=== PATIENT | female | born 1930 | race Caucasian/White ===

== ENCOUNTER 2016-09-02 16:36 | Inpatient (IN) ==
[2016-09-02] MEDS ORDERED: *HR* Heparin 5,000 UNIT/ML VIAL IVP PRN (16:46)
[2016-09-02] MEDS ORDERED: *HR* Heparin 5,000 UNIT/ML VIAL IVP ONE (16:46)
--- NOTE | 2016-09-02 17:23 | Emergency Department Note ---
START Narrative - START START: I examined this patient and my medical decision-making was reviewed with the SUPERVISOR [employer]ING [employer]/PA/Advanced Practice Nurse/Resident Physician. I agree with the documented findings, disposition and treatment plan as described except to the extent set forth below. pt will need admitted. start heparin gtt for right PE. needs pancreatic workup as well
--- NOTE | 2016-09-02 17:38 | Emergency Department Note ---
Disposition Clinical Impression: Pulmonary embolus Qualifiers: Pulmonary embolism type: other Chronicity: acute Acute cor pulmonale presence: without acute cor pulmonale Qualified Code(s): I26.99 - Other pulmonary embolism without acute cor pulmonale Disposition: Admitted As Inpatient Condition: Good Referrals: NO,PCP [Primary Care Provider] - Forms: Work/School Release, ED Satisfaction Letter General Adult HPI - General Chief complaint: ED Shortness of Breath/Dyspnea Stated complaint: abnormal ct Time Seen by Provider: 09/02/16 16:40 Source: patient Limitations: no limitations Nursing Notes Reviewed: Yes Vital Signs Reviewed: Yes - History of Present Illness HPI Narrative: Patient here for evaluation of abnormal CT scan. Patient was seen by Dr. Alves for renal cyst that was going to be screened with CT abdomen pelvis to help rule out complex cyst or neoplasm. This was done on outpatient basis which showed a poor area embolus within the right pulmonary artery. Patient states that she has been experiencing shortness of breath for approximately 2 days. Patient does not normally wear home oxygen. Patient lives at [facility] secondary to her inability to get around. Patient is able to take care of all of her other activities of daily living. Patient began experiencing left lower leg pain approximately 2 weeks ago. Patient had x-ray showing no acute fracture. Patient has had associated swelling this left lower leg. With significant tenderness to palpation of the calf as well as the upper thigh. CT scan has other concerning findings including pancreatic cysts as well as an aortic aneurysm measuring approximate 4.4 centimeters. Patient had been on Coumadin in the past secondary to atrial fibrillation but she thinks she has been off this for approximately one year and just taking baby aspirin instead. Pain Scale: 0 - Related Data Home Medications Medication Instructions Recorded Confirmed ALPRAZolam [Xanax 0.5 MG Tablet] 0.5 mg PO QAM 05/13/15 05/24/15 Calcium Carbonate/Vitamin D3 1 each PO BID 05/13/15 05/24/15 [Calcium 500 + D Tablet] Cholecalciferol (Vitamin D3) 1,000 unit PO BID 05/13/15 05/24/15 [Vitamin D] Citalopram [CeleXA] 20 mg PO QPM 05/13/15 05/24/15 Diltiazem HCl [Cardizem LA] 120 mg PO QAM 05/13/15 05/24/15 Docusate [Colace] 100 mg PO QAM 05/13/15 05/13/15 Furosemide [Lasix] 20 mg PO QAM 05/13/15 05/13/15 Gabapentin [Neurontin] 300 mg PO BID 05/13/15 05/13/15 Glimepiride [Amaryl] 4 mg PO BID 05/13/15 05/24/15 Glucosamine HCl/Chondr Mcghee A Na 1 each PO QPM 05/13/15 05/24/15 [[facility] Glucosamine-Chondr Caplet] Losartan [Cozaar] 50 mg PO BID 05/13/15 05/13/15 Magnesium Oxide [Magnesium] 400 mg PO QAM 05/13/15 05/24/15 Omeprazole [PriLOSEC] 40 mg PO QAM 05/13/15 05/24/15 Pravastatin Sodium [Pravachol] 40 mg PO QPM 05/13/15 05/24/15 Ranitidine HCl [Zantac] 150 mg PO QAM 05/13/15 05/24/15 Sotalol [Betapace] 80 mg PO BID 05/13/15 05/24/15 metFORMIN [Glucophage] 500 mg PO BIDWM 05/13/15 05/24/15 Aspirin [Adult Low Dose Aspirin EC] 81 mg PO DAILY 05/24/15 05/24/15 Allergies Allergy/AdvReac Type Severity Reaction Status Date / Time naproxen [From Aleve] Allergy Mild Blister Verified 05/24/15 17:46 ibuprofen AdvReac Mild Abdominal Verified 05/24/15 17:45 Pain Review of Systems: CONSTITUTIONAL: No weight loss, fever, chills, weakness or fatigue. HEENT: Eyes: No visual changes. Ears, Nose, Throat: No hearing loss, difficulty talking or unable to swallow. SKIN: No rash or itching. CARDIOVASCULAR: No chest pain, chest pressure or chest discomfort. No palpitations or edema. RESPIRATORY: shortness of breath, No cough or sputum. GASTROINTESTINAL: No anorexia, nausea, vomiting or diarrhea. No abdominal pain or blood. GENITOURINARY: No burning on urination or hematuria. NEUROLOGICAL: No headache, dizziness, syncope, paralysis, ataxia, numbness or tingling in the extremities. No change in bowel or bladder control. 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, other - Social History Smoking Status: Never smoker Smokeless Tobacco Status: No Alcohol use: Reports: none Drug use: Reports: none Physical Exam General appearance: NAD, conversant Eyes: anicteric sclerae, moist conjunctivae; PERRL HENT: Atraumatic; oropharynx clear with moist mucous membranes and no mucosal ulcerations Neck: Normal inspection; Trachea midline; FROM, supple Lungs: CTA, with normal respiratory effort and no intercostal retractions CV: RRR, no MRGs Abdomen: Soft, non-tender; no rebound or gaurding Extremities: Mild edema to the left leg Skin: Normal temperature; no rash, ulcers or lesions Psych: Appropriate mood and affect Neuro: alert and oriented to person, place and time Musculoskeletal: Tenderness to palpation of the left leg from the calf to the upper thigh. - General Limitations: no limitations General appearance: alert, anxious Course - Consultations Consultation #1: Discussed with HospitalistTaye. Pt accepted. Vital Signs Temperature 98.5 F 09/02/16 16:38 Pulse Rate 66 09/02/16 16:38 Respiratory Rate 20 09/02/16 16:38 Blood Pressure 158/78 09/02/16 16:38 O2 Sat by Pulse Oximetry 98 09/02/16 16:38 Temperature 98.5 F 09/02/16 16:38 Pulse Rate 66 09/02/16 17:40 Respiratory Rate 20 09/02/16 17:40 Blood Pressure 159/77 09/02/16 17:40 O2 Sat by Pulse Oximetry 97 09/02/16 17:40 Oxygen Delivery Oxygen Delivery Nasal Cannula Medical Decision Making - Lab Data Result diagrams: 09/02/16 17:27 09/02/16 17:27 Lab Results 09/02/16 09/02/16 09/02/16 Range/Units 17:27 17:27 17:27 WBC 8.5 (4.3-11.1) K/mcL RBC 4.31 (3.82-4.97) M/mcL Hgb 12.7 (11.5-15.4) g/dL Hct 39.8 (35.3-44.9) % MCV 92.3 (83.0-100.0) fL MCH 29.5 (28.0-33.3) pg MCHC 31.9 (31.6-35.5) g/dL RDW 12.5 (11.5-14.5) % Plt Count 186 (140-400) K/mcL MPV 11.3 (9.4-12.4) fL Immature Gran % 0.4 (0-4) % Seg Neutrophils % 60.7 % Lymphocytes % 25.2 % Monocytes % 10.6 % Eosinophils % 2.5 % Basophils % 0.6 % Neutrophils # 5.1 (1.6-8.9) K/mcL Lymphocytes # 2.1 (0.6-4.6) K/mcL Monocytes # 0.9 (0.0-1.3) K/mcL Eosinophils # 0.2 (0.0-0.6) K/mcL Basophils # 0.1 (0.0-0.2) K/mcL PT 12.4 H (9.4-12.1) Seconds INR 1.1 APTT 27.5 (26.0-36.0) Seconds Sodium 138 (136-145) mEq/L Potassium 3.6 (3.5-4.5) mEq/L Chloride 102 (98-109) mEq/L Carbon Dioxide 27 (19-29) mEq/L BUN 16 (7-20) mg/dL Creatinine 1.24 H (0.57-1.11) mg/dL Est GFR ( Amer) 50 L (> 60) Est GFR (Non-Af Amer) 41 L (> 60) BUN/Creatinine Ratio 13 (6-26) Glucose 197 H (70-99) mg/dL Calculated Osmolality 293 (280-300) Calcium 8.9 (8.6-10.8) mg/dL Total Bilirubin 0.7 (0.2-1.2) mg/dL AST 13 (5-34) Units/L ALT 9 (0-55) Units/L Alkaline Phosphatase 86 (38-126) Units/L Troponin I (0-0.03) ng/mL B-Natriuretic Peptide (0-100) pg/mL Serum Total Protein 6.7 (6.0-8.3) g/dL Albumin 3.2 L (3.5-5.0) g/dL Globulin 3.5 (2.4-3.5) g/dL Albumin/Globulin Ratio 0.9 L (1.1-2.2) 09/02/16 09/02/16 Range/Units 17:27 17:27 WBC (4.3-11.1) K/mcL RBC (3.82-4.97) M/mcL Hgb (11.5-15.4) g/dL Hct (35.3-44.9) % MCV (83.0-100.0) fL MCH (28.0-33.3) pg MCHC (31.6-35.5) g/dL RDW (11.5-14.5) % Plt Count (140-400) K/mcL MPV (9.4-12.4) fL Immature Gran % (0-4) % Seg Neutrophils % % Lymphocytes % % Monocytes % % Eosinophils % % Basophils % % Neutrophils # (1.6-8.9) K/mcL Lymphocytes # (0.6-4.6) K/mcL Monocytes # (0.0-1.3) K/mcL Eosinophils # (0.0-0.6) K/mcL Basophils # (0.0-0.2) K/mcL PT (9.4-12.1) Seconds INR APTT (26.0-36.0) Seconds Sodium (136-145) mEq/L Potassium (3.5-4.5) mEq/L Chloride (98-109) mEq/L Carbon Dioxide (19-29) mEq/L BUN (7-20) mg/dL Creatinine (0.57-1.11) mg/dL Est GFR ( Amer) (> 60) Est GFR (Non-Af Amer) (> 60) BUN/Creatinine Ratio (6-26) Glucose (70-99) mg/dL Calculated Osmolality (280-300) Calcium (8.6-10.8) mg/dL Total Bilirubin (0.2-1.2) mg/dL AST (5-34) Units/L ALT (0-55) Units/L Alkaline Phosphatase (38-126) Units/L Troponin I 0.00 (0-0.03) ng/mL B-Natriuretic Peptide 154 H (0-100) pg/mL Serum Total Protein (6.0-8.3) g/dL Albumin (3.5-5.0) g/dL Globulin (2.4-3.5) g/dL Albumin/Globulin Ratio (1.1-2.2)
[2016-09-02 17:47] LABS: Basophils # 0.1 K/mcL (0.0-0.2); Basophils % 0.6 %; Eosinophils # 0.2 K/mcL (0.0-0.6); Eosinophils % 2.5 %; Hematocrit 39.8 % (35.3-44.9); Hemoglobin 12.7 g/dL (11.5-15.4); Immature Granulocytes % 0.4 % (0-4); Lymphocytes # 2.1 K/mcL (0.6-4.6); Lymphocytes % 25.2 %; Mean Corpuscular HGB Conc 31.9 g/dL (31.6-35.5); Mean Corpuscular Hemoglobin 29.5 pg (28.0-33.3); Mean Corpuscular Volume 92.3 fL (83.0-100.0); Mean Platelet Volume 11.3 fL (9.4-12.4); Monocytes # 0.9 K/mcL (0.0-1.3); Monocytes % 10.6 %; Neutrophils # 5.1 K/mcL (1.6-8.9); Platelet Count 186 K/mcL (140-400); Red Blood Count 4.31 M/mcL (3.82-4.97); Red Cell Distribution Width 12.5 % (11.5-14.5); Segmented Neutrophils % 60.7 %
[2016-09-02] MEDS: Heparin 25,000 UNIT/500 ML D5W 25,000 UNIT/500 ML MLS IVC SCH (17:47)
[2016-09-02 17:59] LABS: Albumin 3.2 g/dL (3.5-5.0); Albumin/Globulin Ratio 0.9 (1.1-2.2); Bilirubin,Total 0.7 mg/dL (0.2-1.2); Calcium 8.9 mg/dL (8.6-10.8); Globulin 3.5 g/dL (2.4-3.5); INR 1.1; Potassium 3.6 mEq/L (3.5-4.5); Prothrombin Time 12.4 Seconds (9.4-12.1); Total Protein 6.7 g/dL (6.0-8.3)
[2016-09-02 18:02] LABS: Activated Partial Thrombo Time 27.5 Seconds (26.0-36.0)
[2016-09-02] MEDS ORDERED: Naloxone 0.4 MG/ML INJ IVP PRN (20:17)
[2016-09-02] MEDS ORDERED: *HR* HYDROcodone/Acet 5/325 mg TABLET PO PRN (20:21)
[2016-09-02] MEDS ORDERED: Dextrose Gel 15 GM PO PRN ×2 (20:31)
[2016-09-02] MEDS ORDERED: *HR* Dextrose 50 % in Water (Syg) 50 ML SYRINGE IVP PRN (20:31)
[2016-09-02] MEDS ORDERED: D5% in Water 1,000 ML IVC PRN (20:31)
--- NOTE | 2016-09-02 22:07 | Event Note ---
Date of Encounter: 09/02/16 Time of Encounter: 22:04 Patient is having examined with nurse practitioner. She presents to the hospital after incidental finding of right subsegment of pulmonary embolism on CT scan performed for further workup of renal cystic lesions that was concerning for malignancy. Patient was started on heparin drip. Etiology for PE is unclear however patient has been more sedate entry and sitting down most of the time. Ambulates with a walker but most of the time in wheelchair. She has underlying malignancy that can also be a provoking factor. Duration of anticoagulation yet to be decided. Oncology consultation for evaluation cystic lesions in the pancreas kidney. She is not intubate do not resuscitate
[2016-09-02] MEDS: Diltiazem CD (24hr) 180 MG CAPSULE PO SCH (23:58)
[2016-09-02] MEDS: Insulin LISPRO 300 UNITS/3 ML VIAL SQ SCH (23:59)
[2016-09-02] MEDS: Gabapentin 300 MG CAPSULE PO SCH (23:59)
[2016-09-02] MEDS: Insulin DETEMIR 100 UNIT/ML X5UNITS SQ SCH (23:59)
--- NOTE | 2016-09-03 00:39 | Internal Med History&Physical ---
Date of Encounter: 09/03/16 Time of Encounter: 23:00 Assessment and Plan (1) Pulmonary embolus Current visit: Yes Status: Acute Patient's been experiencing increasing shortness of breath over the past 3 days. She does have a sedentary lifestyle and has possible malignancy. Incidental findings on CT of abdomen revealed pulmonary emboli. She was initiated on heparin will continue with heparin drip. She will require bridging to oral anticoagulation We will obtain cardiac echo Qualifiers: Pulmonary embolism type: other Chronicity: acute Acute cor pulmonale presence: without acute cor pulmonale Qualified Code(s): I26.99 - Other pulmonary embolism without acute cor pulmonale (2) Abnormal CT of the abdomen Current visit: Yes Status: Acute Abdominal CT did not reveal pulmonary emboli and right pulmonary artery extending to the right lower lobe. Simple 6.6 cm right renal upper pole cyst. Multiple cysts in the body of the pancreas measuring up to 1.7 cm size individually suspicious for malignancy We will consult oncology (3) Diabetes mellitus Current visit: No Status: Chronic Accu-Cheks before meals at bedtime with sliding scale insulin as well as basal Diabetic diet Qualifiers: Diabetes mellitus type: type 2 Diabetes mellitus complication status: with neurologic complications Diabetes mellitus complication detail: with unspecified neuropathy Diabetes mellitus jail insulin use: with intermediate designer use Qualified Code(s): E11.40 - Type 2 diabetes mellitus with diabetic neuropathy, unspecified; Z79.4 - [facility] (current) use of insulin (4) Essential hypertension Current visit: No Status: Chronic Presently controlled we will continue with home medications (5) Atrial fibrillation Current visit: No Status: Chronic Presently rate controlled We will continue with Cardizem sotalol, atrial fibrillation was on aspirin for anticoagulation presently on heparin drip due to PE Patient has a pacemaker Qualifiers: Atrial fibrillation type: paroxysmal Qualified Code(s): I48.0 - Paroxysmal atrial fibrillation (6) DVT prophylaxis Current visit: No Status: Acute Patient is on heparin drip Internal Medicine - H&P: HPI Chief complaint: abnormal CT Admitted From: Emergency Dept Plans for Post Hospital Care: Transfer [facility] Facility History of present illness: Ms. De León is a 86 year old female has a history of atrial fibrillation diabetes 2. Hyperlipidemia pacemaker. 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 She did see her primary care with concern for cancer and order outpatient abdominal CT. Apparently there was an incidental finding of a right subsegment pulmonary embolism on CT. The patient is sedentary and did note some shortness of breath when going to the bathroom over the past 3 days. She denies any chest pain or lower extremity swelling. She presented to the ER the above complaint. Lab work revealed stable hemoglobin 12 .[address] of head was negative for any bleed Patient was initiated on heparin drip and has been admitted for further work up evaluation. Presently patient denies any chest pain or shortness of breath. She does not appear to be in respiratory distress. Lung sounds are clear heart sounds S1 and S2 with no rubs or clicks gallops murmurs noted. No lower extremity edema. Abdomen soft nontender to palpation. I did discuss CODE STATUS patient she expressed that she would like to be DO NOT RESUSCITATE cc. She is hemodynamically stable this time. Reviewed this case with Dr. Bucio who agrees with plan. Past Med Surg Social Fam HX - Past Medical History Medical history: atrial fibrillation, DVT, diabetes, GI bleed, hyperlipidemia, hypertension, renal disease, other Psychiatric history: anxiety - Past Surgical History Surgical History: appendectomy, cholecystectomy, herniorrhaphy, hysterectomy, orthopedic, other, pacemaker/AICD - Social History Smoking Status: Never smoker Smokeless Tobacco Status: No Alcohol use: none Drug use: none - Family History Father Living Status: Mother Living Status: Internal Medicine - H&P: Meds ALPRAZolam [Xanax 0.5 MG Tablet] 0.5 mg PO DAILY PRN 05/13/15 [History] Calcium Carbonate/Vitamin D3 [Calcium 500 + D Tablet] 1 each PO DAILY 05/13/15 [ History] Cholecalciferol (Vitamin D3) [Vitamin D] 1,000 unit PO DAILY 05/13/15 [History] Citalopram [CeleXA] 20 mg PO QPM 05/13/15 [History] Docusate [Colace] 100 mg PO DAILY PRN 05/13/15 [History] Furosemide [Lasix] 40 mg PO QAM 05/13/15 [History] Gabapentin [Neurontin] 300 mg PO BID 05/13/15 [History] Glimepiride [Amaryl] 4 mg PO QAM 05/13/15 [History] Glucosamine HCl/Chondr Mcghee A Na [Cvs Glucosamine-Chondr Caplet] 1 each PO QPM [History] Losartan [Cozaar] 50 mg PO BID 05/13/15 [History] Magnesium Oxide [Magnesium] 400 mg PO QAM 05/13/15 [History] Omeprazole [PriLOSEC] 40 mg PO QAM 05/13/15 [History] Pravastatin Sodium [Pravachol] 40 mg PO QPM 05/13/15 [History] Sotalol [Betapace] 80 mg PO BID 05/13/15 [History] Aspirin 81 mg PO DAILY 09/02/16 [History] Bisacodyl [Dulcolax] 10 mg RC DAILY PRN 09/02/16 [History] Diltiazem HCl [Diltiazem 24Hr Cd] 180 mg PO BID 09/02/16 [History] Glimepiride [Amaryl] 2 mg PO QPM 09/02/16 [History] GuaiFENesin/Dextromethorphan [Tussin Dm Syrup] 5 ml PO QID PRN 09/02/16 [History ] Guaifenesin [Mucinex] 600 mg PO BID 09/02/16 [History] HYDROcodone/Acet 5/325 mg [[place] 5-325 mg] 1 tab PO QID PRN 09/02/16 [History] Insulin DETEMIR [Levemir] 15 unit SQ HS 09/02/16 [History] Insulin DETEMIR [Levemir] 16 unit SQ QAM 09/02/16 [History] Insulin LISPRO [HumaLOG] 4 unit SQ 1200,1700 MDD Lunch & Dinner 09/02/16 [ History] Loperamide [Imodium] 2 mg PO PER PKG DI PRN MDD 16 mg 09/02/16 [History] Nystatin POWDER [Nystop] 1 appl TP BID PRN 09/02/16 [History] Potassium Chloride [Klor-Con 10] 10 meq PO DAILY 09/02/16 [History] Allergies naproxen [From Aleve] Allergy (Mild, Verified 05/24/15 17:46) Blister NOT ABLE TO TAKE ANY NSAIDS DUE TO A HISTORY OF BLEEDING ULCERS ibuprofen Adverse Reaction (Mild, Verified 05/24/15 17:45) Abdominal Pain patient reports bleeding ulcers with use metformin Adverse Reaction (Verified 09/02/16 19:07) See Comments list from [facility] All Systems PM: A 10-system review of systems was performed and is negative for pertinent findings except as documented above in the HPI. - Constitutional Constitutional: no chills, no fever(s), no night sweats - EENT Eyes: no change in vision, no discharge, no pain, no photophobia Ears: no ear discharge, no ear pain, no tinnitus Nose, mouth and throat: no dysphagia, no nasal discharge, no neck pain, no sore throat - Cardiovascular Cardiovascular ROS IM: no chest pain, no diaphoresis, no dyspnea, no lightheadedness, no palpitations, no syncope - Respiratory Respiratory: dyspnea on exertion, no cough, no dyspnea, no wheezing, no excessive phlegm production - Gastrointestinal Gastrointestinal: abdominal pain, no diarrhea, no hematemesis, no hematochezia, no melena, no nausea, no vomiting - Genitourinary Genitourinary: no change in urinary stream, no dysuria, no flank pain, no hematuria - Musculoskeletal Musculoskeletal ROS IM: no numbness, no tingling - Integumentary Integumentary IM: no rash, no unusual bruising - Neurological Neurological ROS: no confusion, no convulsions, no focal weakness, no numbness, no tingling, no tremor(s) - Hematologic/Lymphatic Hematologic/Lymphatic: no easy bruising - Constitutional Vitals: Temp Pulse Resp BP Pulse Ox 98.3 F 71 17 160/103 94 09/02/16 22:38 09/02/16 22:38 09/02/16 22:38 09/02/16 22:38 09/02/16 22:38 General appearance: Present: A&O X 3, answers questions appropriately - Head Head exam: Present: atraumatic, normocephalic - Eye Eye exam: Present: PERRL, conjuntiva pink, sclera anicteric Pupils: Present: PERRL - Neck Neck exam general surgery: Present: supple, trachea midline. Absent: lymphadenopathy - Respiratory Respiratory exam: Present: CTAB. Absent: accessory muscle use, rales, rhonchi, wheezes - Cardiovascular Cardiovascular exam: Present: RRR, +S1, +S2. Absent: diastolic murmur, gallop, rubs, systolic murmur - GI/Abdominal GI/Abdominal exam: Present: normal bowel sounds, soft, no peritoneal signs. Absent: distended, tenderness - Extremities Exam Extremities exam: Present: warm, radial pulses palpable and symetrical. Absent : calf tenderness, cyanotic, pedal edema - Neurological Exam Neurological exam: Present: CN II-XII intact, oriented X3, no focal deficits. Absent: pronater drift, facial droop, speech deficit - Skin Skin exam: Present: dry, intact Internal Med - H&P Results - Labs CBC & Chem 7: 09/03/16 00:19 09/03/16 00:19 - Diagnostic Studies Other Images Additional comments: Chest X-Ray 09/02/16 17:05 IMPRESSION: Similar appearing chest without acute cardiopulmonary process radiographically, in this patient with pulmonary emboli seen in the right main pulmonary artery earlier today, as well as probable small left lower lobe pulmonary emboli on the CT study earlier today. D/ / Ubaldo Griffin MD / Ubaldo Griffin MD Interpreting Provider: Ubaldo Griffin MD
[2016-09-03 00:48] LABS: Basophils # 0.1 K/mcL (0.0-0.2); Basophils % 0.7 %; Eosinophils # 0.3 K/mcL (0.0-0.6); Hematocrit 36.5 % (35.3-44.9); Hemoglobin 11.7 g/dL (11.5-15.4); Immature Granulocytes % 0.2 % (0-4); Lymphocytes # 3.4 K/mcL (0.6-4.6); Lymphocytes % 40.1 %; Mean Corpuscular HGB Conc 32.1 g/dL (31.6-35.5); Mean Corpuscular Hemoglobin 29.9 pg (28.0-33.3); Mean Corpuscular Volume 93.4 fL (83.0-100.0); Mean Platelet Volume 11.1 fL (9.4-12.4); Monocytes # 0.8 K/mcL (0.0-1.3); Monocytes % 9.2 %; Neutrophils # 3.9 K/mcL (1.6-8.9); Platelet Count 169 K/mcL (140-400); Red Blood Count 3.91 M/mcL (3.82-4.97); Red Cell Distribution Width 12.7 % (11.5-14.5); Segmented Neutrophils % 46.8 %
[2016-09-03 01:01] LABS: Calcium 8.8 mg/dL (8.6-10.8); Potassium 3.7 mEq/L (3.5-4.5)
[2016-09-03 01:13] LABS: Activated Partial Thrombo Time 193.3 Seconds (26.0-36.0)
[2016-09-03 01:25] LABS: Heparin anti-factor XA UFH 1.26 IU/mL (0.30-0.70)
[2016-09-03] MEDS: Aspirin 81 MG TAB.CHEW PO SCH (07:54)
[2016-09-03] MEDS: Magnesium Oxide 400 MG TABLET PO SCH (07:54)
[2016-09-03] MEDS: Furosemide 20 MG TABLET PO SCH (07:54)
[2016-09-03] MEDS: Gabapentin 300 MG CAPSULE PO SCH ×2 (07:54→20:16)
[2016-09-03] MEDS: Diltiazem CD (24hr) 180 MG CAPSULE PO SCH ×2 (07:55→20:15)
[2016-09-03] MEDS: Insulin LISPRO 300 UNITS/3 ML VIAL SQ SCH ×4 (07:55→21:05)
[2016-09-03] MEDS: Insulin DETEMIR 100 UNIT/ML X5UNITS SQ SCH ×2 (09:32→21:05)
--- NOTE | 2016-09-03 13:10 | Oncology Inp Consult Note ---
Date of Encounter: 09/03/16 Time of Encounter: 12:30 Assessment and Plan (1) Weakness generalized Status: Chronic (2) Physical deconditioning Status: Chronic Assessment and plan: She currently resides in longterm. She will resume longterm care at time of discharge. (3) Pulmonary embolus Status: Acute Assessment and plan: Tolerating heparin quite well. Her symptoms have improved. Agree with obtaining baseline duplex Doppler of the lower extremities and CT chest as ordered. We will transition to Eliquis at time of discharge. Given age, 5 mg twice a day would be a reasonable dose. Qualifiers: Pulmonary embolism type: other Chronicity: acute Acute cor pulmonale presence: without acute cor pulmonale Qualified Code(s): I26.99 - Other pulmonary embolism without acute cor pulmonale (4) Pancreatic adenoma Status: Acute Assessment and plan: I had a nice meeting with the patient as well as her granddaughter who is at her bedside. 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 This is likely a premalignant condition although overt malignancy cannot be excluded. I did discuss that options for treatment if proven to be malignant would be surgery (which she would not be a candidate for) or chemotherapy which the patient does not want. Therefore, I think a prudent approach would be not to pursue further workup of this lesion at the current time. Instead, I would recommend repeat imaging in 3 months in my office. The patient and her daughter think this is a reasonable approach. I will make follow-up plans for her in my office in approximate 4 weeks' time to assess tolerance of Eliquis and finalize treatment plan for the above. Please call [phone] with questions. - Data of Consult Patient: new to practice Requesting Physician: Mini Lopez Primary Care Provider: PCP NO - Consult Narrative Reason for consult: New PE. Pancreatic lesion. History of present illness: Ms. De León is a 86 year old female who lives [facility] and developed shortness of breath approximately 3 days past. She states she was getting up with her walker to go to the restroom and felt winded. He went to see her primary care physician already ordered a CT scan of the abdomen and pelvis as there is been concerned she had an underlying renal malignancy. Incidentally, the CT scan showed a right sided pulmonary embolism. In addition to this, there was a 6.6 cm right kidney upper pole cyst. There was a millimeter nonobstructing left kidney stone. There were multiple cysts in the body of the pancreas. The largest measured 1.7 cm in the conglomerate measured 2.7 x 2.5 cm. 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 His been placed on a heparin drip with excellent tolerance. She has no bleeding symptoms of epistaxis hemoptysis hematemesis melena or hematochezia. In speaking with Ms. De León today, she is feeling much better. Her breathing is back to nearly baseline although she remains on oxygen. She denies any pain whatsoever. No fever chills or symptoms of active infection. Duplex Doppler has been ordered as has CT scan of chest. Past Med Surg Social Fam HX - Past Medical History Medical history: atrial fibrillation, DVT, diabetes, GI bleed, hyperlipidemia, hypertension, renal disease, other Psychiatric history: anxiety - Past Surgical History Surgical History: appendectomy, cholecystectomy, herniorrhaphy, hysterectomy, orthopedic, other, pacemaker/AICD - Social History Smoking Status: Never smoker Smokeless Tobacco Status: No Alcohol use: none Drug use: none - Family History Father Living Status: Mother Living Status: Medications and Allergies ALPRAZolam [Xanax 0.5 MG Tablet] 0.5 mg PO DAILY PRN 05/13/15 [History] Calcium Carbonate/Vitamin D3 [Calcium 500 + D Tablet] 1 each PO DAILY 05/13/15 [ History] Cholecalciferol (Vitamin D3) [Vitamin D] 1,000 unit PO DAILY 05/13/15 [History] Citalopram [CeleXA] 20 mg PO QPM 05/13/15 [History] Docusate [Colace] 100 mg PO DAILY PRN 05/13/15 [History] Furosemide [Lasix] 40 mg PO QAM 05/13/15 [History] Gabapentin [Neurontin] 300 mg PO BID 05/13/15 [History] Glimepiride [Amaryl] 4 mg PO QAM 05/13/15 [History] Glucosamine HCl/Chondr Mcghee A Na [Cvs Glucosamine-Chondr Caplet] 1 each PO QPM [History] Losartan [Cozaar] 50 mg PO BID 05/13/15 [History] Magnesium Oxide [Magnesium] 400 mg PO QAM 05/13/15 [History] Omeprazole [PriLOSEC] 40 mg PO QAM 05/13/15 [History] Pravastatin Sodium [Pravachol] 40 mg PO QPM 05/13/15 [History] Sotalol [Betapace] 80 mg PO BID 05/13/15 [History] Aspirin 81 mg PO DAILY 09/02/16 [History] Bisacodyl [Dulcolax] 10 mg RC DAILY PRN 09/02/16 [History] Diltiazem HCl [Diltiazem 24Hr Cd] 180 mg PO BID 09/02/16 [History] Glimepiride [Amaryl] 2 mg PO QPM 09/02/16 [History] GuaiFENesin/Dextromethorphan [Tussin Dm Syrup] 5 ml PO QID PRN 09/02/16 [History ] Guaifenesin [Mucinex] 600 mg PO BID 09/02/16 [History] HYDROcodone/Acet 5/325 mg [[place] 5-325 mg] 1 tab PO QID PRN 09/02/16 [History] Insulin DETEMIR [Levemir] 15 unit SQ HS 09/02/16 [History] Insulin DETEMIR [Levemir] 16 unit SQ QAM 09/02/16 [History] Insulin LISPRO [HumaLOG] 4 unit SQ 1200,1700 MDD Lunch & Dinner 09/02/16 [ History] Loperamide [Imodium] 2 mg PO PER PKG DI PRN MDD 16 mg 09/02/16 [History] Nystatin POWDER [Nystop] 1 appl TP BID PRN 09/02/16 [History] Potassium Chloride [Klor-Con 10] 10 meq PO DAILY 09/02/16 [History] Allergies naproxen [From Aleve] Allergy (Mild, Verified 05/24/15 17:46) Blister NOT ABLE TO TAKE ANY NSAIDS DUE TO A HISTORY OF BLEEDING ULCERS ibuprofen Adverse Reaction (Mild, Verified 05/24/15 17:45) Abdominal Pain patient reports bleeding ulcers with use metformin Adverse Reaction (Verified 09/02/16 19:07) See Comments list from ecf All systems: reviewed and no additional remarkable complaints except as stated Constitutional: Present: fatigue, lethargy Neurological: Present: lack of coordination, weakness Additional comments: Ambulates minimally and sedentary. Oncology - Exam - Constitutional Vitals: Temp Pulse Resp BP Pulse Ox 98.0 F 59 16 146/78 96 09/03/16 11:51 09/03/16 11:51 09/03/16 11:51 09/03/16 11:51 09/03/16 11:51 General appearance: cooperative, obese Exam: Diminished muscle tone throughout. - Head Head exam: Present: atraumatic, normal inspection, normocephalic - Eye Eye exam: Present: conjuntiva pink, sclera anicteric - ENT ENT exam: Present: mucous membranes moist, normal exam - Neck Neck exam: Present: full ROM, normal inspection - Respiratory Respiratory exam: Present: CTAB - Cardiovascular Cardiovascular exam: Present: irregular rhythm - GI/Abdominal GI/Abdominal exam: Present: normal bowel sounds, soft - Extremities Exam Extremities exam: Present: pedal edema - Skin Skin exam: Present: intact, normal color Oncology - Results - Labs Labs: Short CBC 09/03/16 Range/Units 00:19 WBC 8.4 (4.3-11.1) K/mcL Hgb 11.7 (11.5-15.4) g/dL Hct 36.5 (35.3-44.9) % Plt Count 169 (140-400) K/mcL Neutrophils # 3.9 (1.6-8.9) K/mcL BMP 09/03/16 00:19 Sodium 138 Potassium 3.7 Chloride 103 Carbon Dioxide 27 BUN 18 Creatinine 1.07 Glucose 220 H Calcium 8.8 Cardiac Enzymes 09/03/16 09/03/16 Range/Units 00:19 05:35 Troponin I 0.01 0.01 (0-0.03) ng/mL - Impressions Imaging reviewed. Please see HPI Consult Discharge Plan - Plan Referrals: NO,PCP [Primary Care Provider] -
--- NOTE | 2016-09-03 13:52 | Internal Med Progress Note ---
<Abdiel Spangler - Last Filed: 09/03/16 13:47> Date of Encounter: 09/03/16 Time of Encounter: 09:20 - Assessment and plan (1) Pulmonary embolus Current Visit: Yes Status: Acute Assessment and plan: Patient found to have pulmonary embolism, incidentally, on CT of the abdomen with/without contrast and evaluation of renal cyst. Patient found to have right -sided pulmonary embolus. 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 Lower extremity venous Doppler showed left-sided DVT at the CFV/SFV/popliteal vein level. Patient was previously taking Coumadin for atrial fibrillation, but stopped 1 year ago due to weakness and frequent falls. Patient on heparin drip currently Hematology/oncology consulted for assistance with continued management/care Recommend transition to Eliquis at the time of discharge (5 mg twice a day) Continue supplemental oxygen as needed, wean as tolerated 2 patient underlying chronic kidney disease, will continue to monitor renal function with daily labs following CTs with contrast Qualifiers: Pulmonary embolism type: other Chronicity: acute Acute cor pulmonale presence: without acute cor pulmonale Qualified Code(s): I26.99 - Other pulmonary embolism without acute cor pulmonale (2) Pancreatic adenoma Current Visit: Yes Status: Acute Assessment and plan: Multiple cysts found in the body of the pancreas measuring up to 1.7 cm in size with total iron bit of 2.7 x 2.5. Could represent cystic neoplasm or cystic adenoma. Oncology consulted for assistance in further management/care (3) Do not resuscitate discussion Current Visit: Yes Status: Acute Assessment and plan: Lengthy discussion with patient regarding her CODE STATUS today. After discussion with patient she seems to be more interested in a DNR CCA/DNI. After discussion with oncology she is not a candidate for surgery or interested in chemotherapy if it is found to be potential cancer. Patient has elected for more conservative approach with follow-up CT for reevaluation. CODE STATUS was changed to DNR CCA/DNI per patient wishes (4) Essential hypertension Current Visit: No Status: Chronic Assessment and plan: Patient takes diltiazem 180 mg twice a day and losartan 50 mg twice a day at home Continue home medications (5) Diabetes mellitus, type 2 Current Visit: No Status: Chronic Assessment and plan: Patient on 15 units every morning and 16 units daily at bedtime Levemir and glimepiride at home We will hold patient home in the parotid 15 units subcutaneous at bedtime Levemir 16 units subcutaneous every morning Levemir Low dose sliding scale insulin before meals at bedtime Qualifiers: Diabetes mellitus complication status: without complication Diabetes mellitus terminal gauger insulin use: with terminal gauger use Qualified Code(s): E11.9 - Type 2 diabetes mellitus without complications; Z79.4 - long-term (current) use of insulin (6) Weakness generalized Current Visit: No Status: Chronic Assessment and plan: Patient reports generalized weakness lasting for some time, resulting in a history of falls. Patient resides at [facility] for more close care as family are not able to care for her at home. - Subjective Interval history: Patient reports doing well at this time stating that she "feels fine." She states that she feels like she is breathing much better than she has to last couple days, do not miss this might be accounted on supplemental oxygen she is using. She denies any chest pain, pain with deep breathing, or pain with cough. She denies fever/chills. She states she has been having some pain in her left calf, but this has been occurring for the last year. - Constitutional Vitals: Temp Pulse Resp BP Pulse Ox 98.0 F 59 16 146/78 96 09/03/16 11:51 09/03/16 11:51 09/03/16 11:51 09/03/16 11:51 09/03/16 11:51 General appearance: Present: A&O X 3, answers questions appropriately Exam: General: Cooperative, pleasant, no acute distress, alert and oriented 3, answers questions appropriately HEENT: Normocephalic, atraumatic, neck supple, trachea midline, Conjunctiva pink , sclera anicteric, oral mucosa moist Respiratory: No accessory muscle usage, clear to auscultation bilaterally, no wheezes/rhonchi/rales appreciated Cardiovascular: Regular rate and rhythm, S1 and S2 present, no murmurs/rubs/ gallops/clicks appreciated GI/abdominal: Nondistended, nontender, soft, normal bowel sounds, no peritoneal signs Extremities: Mild left-sided calf tenderness, noncyanotic, no lower extremity edema appreciated, warm, lower extremity pulses palpable and symmetrical, negative Homans sign Neurological: Alert and oriented 3, no facial droop, no focal deficits Skin: Dry, intact, normal color Internal Medicine: Result - Labs CBC & Chem 7: 09/03/16 00:19 09/03/16 00:19 Labs: Short CBC 09/03/16 Range/Units 00:19 WBC 8.4 (4.3-11.1) K/mcL Hgb 11.7 (11.5-15.4) g/dL Hct 36.5 (35.3-44.9) % Plt Count 169 (140-400) K/mcL Neutrophils # 3.9 (1.6-8.9) K/mcL BMP 09/03/16 00:19 Sodium 138 Potassium 3.7 Chloride 103 Carbon Dioxide 27 BUN 18 Creatinine 1.07 Glucose 220 H Calcium 8.8 Cardiac Enzymes 09/03/16 09/03/16 Range/Units 00:19 05:35 Troponin I 0.01 0.01 (0-0.03) ng/mL - ABG Interpretation ABG results: PT/INR, D-dimer PT 12.4 Seconds (9.4-12.1) H 09/02/16 17:27 - Impressions Impressions Chest CTA 09/03/16 13:00 IMPRESSION: 1. Right-sided pulmonary emboli with no evidence of infarct 2. 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 D/ / Shoaib Sauceda MD / Shoaib Sauceda MD Interpreting Provider: Shoaib Sauceda MD Consult Discharge Plan - Plan Referrals: NO,PCP [Primary Care Provider] - <Mini Lopez E - Last Filed: 09/03/16 16:07> Date of Encounter: 09/03/16 - Constitutional Vitals: Temp Pulse Resp BP Pulse Ox 98.0 F 59 16 146/78 96 09/03/16 11:51 09/03/16 11:51 09/03/16 11:51 09/03/16 11:51 09/03/16 11:51 Internal Medicine: Result - Labs CBC & Chem 7: 09/03/16 00:19 09/03/16 00:19 Labs: Short CBC 09/03/16 Range/Units 00:19 WBC 8.4 (4.3-11.1) K/mcL Hgb 11.7 (11.5-15.4) g/dL Hct 36.5 (35.3-44.9) % Plt Count 169 (140-400) K/mcL Neutrophils # 3.9 (1.6-8.9) K/mcL BMP 09/03/16 00:19 Sodium 138 Potassium 3.7 Chloride 103 Carbon Dioxide 27 BUN 18 Creatinine 1.07 Glucose 220 H Calcium 8.8 Cardiac Enzymes 09/03/16 09/03/16 Range/Units 00:19 05:35 Troponin I 0.01 0.01 (0-0.03) ng/mL - ABG Interpretation ABG results: PT/INR, D-dimer PT 12.4 Seconds (9.4-12.1) H 09/02/16 17:27 - Impressions Impressions Chest CTA 09/03/16 13:00 IMPRESSION: 1. Right-sided pulmonary emboli with no evidence of infarct 2. 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 My medical decision-making was reviewed with Dr Abdiel Spangler - Resident Physician. I agree with the documented findings, disposition and treatment plan as described above with the following additions.
[2016-09-03] MEDS: Heparin 25,000 UNIT/500 ML D5W 25,000 UNIT/500 ML MLS IVC SCH (15:26)
[2016-09-03] MEDS: *HR* Heparin 5,000 UNIT/ML VIAL IVP PRN (20:14)
[2016-09-04 04:15] LABS: BUN/Creatinine Ratio 17 (6-26); Blood Urea Nitrogen 15 mg/dL (7-20); Calcium 8.8 mg/dL (8.6-10.8); Carbon Dioxide 26 mEq/L (19-29); Chloride 103 mEq/L (98-109); Glucose 143 mg/dL (70-99); Magnesium 1.5 mg/dL (1.6-2.6); Osmolality,Calculated 289 (280-300); Potassium 3.6 mEq/L (3.5-4.5); Sodium 138 mEq/L (136-145); eGFR For African Americans > 60 (> 60); eGFR For Non-African Americans > 60 (> 60)
[2016-09-04] MEDS: Insulin DETEMIR 100 UNIT/ML X5UNITS SQ SCH ×2 (09:08→20:55)
[2016-09-04] MEDS: Magnesium Oxide 400 MG TABLET PO SCH (09:10)
[2016-09-04] MEDS: Furosemide 20 MG TABLET PO SCH (09:10)
[2016-09-04] MEDS: Diltiazem CD (24hr) 180 MG CAPSULE PO SCH ×2 (09:10→20:53)
[2016-09-04] MEDS: Gabapentin 300 MG CAPSULE PO SCH ×2 (09:10→20:54)
[2016-09-04] MEDS: Aspirin 81 MG TAB.CHEW PO SCH (09:10)
[2016-09-04] MEDS: Insulin LISPRO 300 UNITS/3 ML VIAL SQ SCH ×4 (09:12→20:54)
--- NOTE | 2016-09-04 09:33 | Oncology Inp Progress Note ---
Date of Encounter: 09/04/16 Time of Encounter: 09:45 (1) Pulmonary embolus Current Visit: Yes Status: Acute Assessment and plan: Tolerating heparin quite well. Transition to eliquis 5 mg bid at discharge. Educated as to signs and symptoms of bleeding. Will need to be careful as fall risk as well. Qualifiers: Pulmonary embolism type: other Chronicity: acute Acute cor pulmonale presence: without acute cor pulmonale Qualified Code(s): I26.99 - Other pulmonary embolism without acute cor pulmonale (2) Pancreatic adenoma Current Visit: Yes Status: Acute Assessment and plan: No aggressive workup or treatment desired by patient or family. Will consider serial imaging if patient desires in 3 months otherwise expectant observation. I will make follow-up plans for her in my office in approximate 4 weeks' time to assess tolerance of Eliquis and finalize treatment plan for the above. I will otherwise sign off. Please call [phone] with questions. Oncology: Subj Interval history: Feeling okay this AM. Breathing stable and comfortable. Asking about going home. No new pain. Left leg swelling may be a bit better from yesterday but difficult to tell. Eating ok. Bowel habits normal. Tolerating heparin gtt. D /W nurse who is weaning oxygen. - Constitutional Vitals: Vital Signs Temp Pulse Resp BP Pulse Ox 09/04/16 06:45 97.8 F 68 16 144/83 95 09/04/16 04:08 97.5 F L 63 17 149/83 95 09/03/16 23:30 97.7 F 67 18 148/83 95 09/03/16 20:30 97.8 F 97 18 154/80 96 09/03/16 14:37 98.3 F 64 16 147/83 95 09/03/16 11:51 98.0 F 59 16 146/78 96 Intake and Output 09/04/16 09/04/16 09/04/16 00:59 08:59 16:59 Intake Total 1243 / 1243 263 / 263 Output Total 700 / 700 Balance 543 / 543 263 / 263 Intake: IV Fluids 3 163 / 163 Heparin 25,000 UNIT/500 3 163 / 163 ML D5W 25,000 unit In 500 ml @ 14 UNIT/KG/HR 26. 417 mls/hr IVC .[id number] HIWOT Rx#:[id number] Oral 1240 / 1240 100 / 100 Output: Urine 700 / 700 Other: Meal Dinner Percent of Meal Consumed 100% Stool Size Small Stool Consistency soft Stool Characteristics Normal for Patient Stool Color Brown # Voids 1 # Bowel Movements 1 Weight 98.1 kg Blood Glucose* 211 161 Patient Weight 09/05/16 00:59 Weight 98.1 kg General appearance: cooperative, no acute distress, obese - Head Head exam: Present: atraumatic, normal inspection, normocephalic - Eye Eye exam: Present: conjuntiva pink, sclera anicteric - ENT ENT exam: Present: mucous membranes moist, normal exam - Respiratory Respiratory exam: Present: CTAB - Cardiovascular Cardiovascular exam: Present: RRR, systolic murmur - GI/Abdominal GI/Abdominal exam: Present: normal bowel sounds, soft - Extremities Exam Extremities exam: Present: pedal edema (2+ on left with tenderness) - Skin Skin exam: Present: normal color Oncology: Obj Data - Labs CBC & Chem 7: 09/03/16 00:19 09/04/16 03:43 Labs: Laboratory Results - last 24 hr 09/03/16 09/03/16 09/03/16 07:31 11:54 12:11 APTT 59.1 H Sodium Potassium Chloride Carbon Dioxide BUN Creatinine Est GFR ( Amer) Est GFR (Non-Af Amer) BUN/Creatinine Ratio Glucose POC Glucose 184 H 250 H Calculated Osmolality Calcium Magnesium 09/03/16 09/03/16 09/03/16 17:15 18:27 20:26 APTT 56.0 H Sodium Potassium Chloride Carbon Dioxide BUN Creatinine Est GFR ( Amer) Est GFR (Non-Af Amer) BUN/Creatinine Ratio Glucose POC Glucose 94 H 211 H Calculated Osmolality Calcium Magnesium 09/04/16 09/04/16 03:43 03:43 APTT 93.5 H D Sodium 138 Potassium 3.6 Chloride 103 Carbon Dioxide 26 BUN 15 Creatinine 0.89 Est GFR ( Amer) > 60 Est GFR (Non-Af Amer) > 60 BUN/Creatinine Ratio 17 Glucose 143 H POC Glucose Calculated Osmolality 289 Calcium 8.8 Magnesium 1.5 L - Impressions Impressions Chest CTA 09/03/16 13:00 IMPRESSION: 1. Right-sided pulmonary emboli with no evidence of infarct 2. 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
[2016-09-04] MEDS ORDERED: Magnesium Sulfate 1 GM in D5% in Water 100 ML IVPB ONE (10:36)
[2016-09-04] MEDS: *HR* Heparin 5,000 UNIT/ML VIAL IVP PRN (11:14)
--- NOTE | 2016-09-04 11:50 | Venous Imaging Report ---
LE Venous Duplex Patient Name:Edel De León Order Number:[id number] Procedure Date:09/03/2016 Date:1930ge:86 yrs Gender:Female Location:[facility] Room #: 3NE19 Hand Trucker:Ladi Yin Referring MD:Raquel Swift TECHNOLOGY EDUCATION INSTRUCTOR new patient escort:None Reading MD:Shoaib Ann MD , FACS Primary Indications:Left LE calf pain Secondary Indications: Risk Factors Yes/No Hx of DVT Impressions: Lower extremity abnormal deep exam: left common femoral vein, superficial femoral vein, and popliteal vein demonstrates acute thrombosis. Right lower extremity: normal contralateral exam. Recommendations: Test completed on 09/03/2016 at 12:45:00 pm. Critical findings reported to CORBY Spangler in person at 12:50:00 pm on 09/03/2016 by Ladi Yin. Findings Venous Duplex Results: Left: There is a partially occlusive thrombus seen in the left common femoral. There is an occlusive thrombus seen in the left superficial femoral. There is an occlusive thrombus seen in the left popliteal. Prior Study: No prior study available for comparison. Lower Extremity Venous Duplex Side Vein Compress Spontaneous Flow Augment Diameter (cm) Depth (cm) Left Distal Iliac Normal Yes Phasic Yes Left Common Femoral Partial Yes Phasic no Left Superficial Femoral None no Absent no Left Popliteal None no Absent no Left Posterior Tibial Normal Yes Phasic Yes Left Peroneal Normal Yes Phasic Yes Left Saphenofemoral Junction Normal Yes Phasic Yes Left Great Saphenous Normal Yes Phasic Yes Left Lesser Saphenous Normal Yes Phasic Yes Right Common Femoral Normal Yes Phasic Yes Updated by Shoaib Ann MD, FACS on 09/04/2016 11:46:05 AM Shoaib Ann MD electronically signed on 09/04/2016 11:46:32 AM with status of Final
--- NOTE | 2016-09-04 12:32 | Electrocardiograph Report ---
[place] [id number] Test Date: 2016-09-02 Pat Name: Edel De León Department: 102 Room: 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
--- NOTE | 2016-09-04 12:41 | Electrocardiograph Report ---
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
--- NOTE | 2016-09-04 13:55 | Internal Med Progress Note ---
Date of Encounter: 09/04/16 Time of Encounter: 12:30 - Assessment and plan (1) Pulmonary embolus Current Visit: Yes Status: Acute Assessment and plan: Patient found to have pulmonary embolism, incidentally, on CT of the abdomen with/without contrast and evaluation of renal cyst. Patient found to have right -sided pulmonary embolus. Dedicated CTA of the chest showed right-sided pulmonary emboli at the bifurcation of the right main ulmnary artery extending into the right upper lobe pulmonary artery and descending right pulmonary artery into basilar segmental branches with no evidence of infarct. Lower extremity venous Doppler showed left-sided DVT at the CFV/SFV/popliteal vein level. continue heparin drip given significant clot burden in lung and leg. Transition to Eliquis at the time of discharge (5 mg twice a day) Qualifiers: Pulmonary embolism type: other Chronicity: acute Acute cor pulmonale presence: without acute cor pulmonale Qualified Code(s): I26.99 - Other pulmonary embolism without acute cor pulmonale (2) Acute respiratory failure with hypoxemia Current Visit: Yes Status: Acute Assessment and plan: patient uses 2L of oxygen at nighttime at [place]. Hypoxemia secondary to acute PE. continue heparin drip, oxygen supplementation. (3) DVT (deep venous thrombosis) Current Visit: Yes Status: Acute Assessment and plan: Lower extremity venous Doppler showed left-sided DVT at the CFV/SFV/popliteal vein level plan as above. Qualifiers: DVT location: lower extremity Affected thrombotic vein of extremity: other lower extremity vein Laterality: left Chronicity: acute Qualified Code(s) : I82.492 - Acute embolism and thrombosis of other specified deep vein of left lower extremity (4) Atrial fibrillation Current Visit: No Status: Chronic Assessment and plan: heart rate is adequate. continue home dose of sotalol, diltiazem. Qualifiers: Atrial fibrillation type: paroxysmal Qualified Code(s): I48.0 - Paroxysmal atrial fibrillation (5) Pancreatic adenoma Current Visit: Yes Status: Acute Assessment and plan: Multiple cysts found in the body of the pancreas measuring up to 1.7 cm in size with total iron bit of 2.7 x 2.5. Could represent cystic neoplasm or cystic adenoma. Oncology consulted for assistance in further management/care (6) Essential hypertension Current Visit: No Status: Chronic Assessment and plan: continue home dose of losartan 50 mg twice a day (7) Diabetes mellitus Current Visit: No Status: Chronic Assessment and plan: continue levemir, ssi, diabetic diet. Qualifiers: Diabetes mellitus type: type 2 Diabetes mellitus complication status: with neurologic complications Diabetes mellitus complication detail: with unspecified neuropathy Diabetes mellitus keno terminal operator insulin use: with correction use Qualified Code(s): E11.40 - Type 2 diabetes mellitus with diabetic neuropathy, unspecified; Z79.4 - rn long term care (current) use of insulin - Subjective Interval history: no chest pain. no shortness of breath. - Constitutional Vitals: Temp Pulse Resp BP Pulse Ox 97.9 F 64 18 141/78 93 09/04/16 10:11 09/04/16 10:11 09/04/16 10:11 09/04/16 10:11 09/04/16 13:43 General appearance: Present: A&O X 3, answers questions appropriately - Neck Neck exam general surgery: Present: supple, trachea midline. Absent: lymphadenopathy - Respiratory Respiratory exam: Present: rhonchi - Cardiovascular Cardiovascular exam: Present: RRR - GI/Abdominal GI/Abdominal exam: Present: normal bowel sounds, soft. Absent: distended, tenderness - Extremities Exam Extremities exam: Present: pedal edema (1+ left leg swelling) - Skin Skin exam: Absent: rash Internal Medicine: Result - Labs CBC & Chem 7: 09/03/16 00:19 09/04/16 03:43 Labs: BMP 09/04/16 03:43 Sodium 138 Potassium 3.6 Chloride 103 Carbon Dioxide 26 BUN 15 Creatinine 0.89 Glucose 143 H Calcium 8.8 - ABG Interpretation ABG results: PT/INR, D-dimer PT 12.4 Seconds (9.4-12.1) H 09/02/16 17:27 Consult Discharge Plan - Plan Referrals: NO,PCP [Primary Care Provider] -
[2016-09-04] MEDS: Heparin 25,000 UNIT/500 ML D5W 25,000 UNIT/500 ML MLS IVC SCH (20:51)
[2016-09-05 00:53] LABS: Basophils # 0.1 K/mcL (0.0-0.2); Basophils % 0.7 %; Eosinophils # 0.3 K/mcL (0.0-0.6); Eosinophils % 4.5 %; Hematocrit 35.1 % (35.3-44.9); Hemoglobin 11.2 g/dL (11.5-15.4); Immature Granulocytes % 0.3 % (0-4); Lymphocytes # 2.9 K/mcL (0.6-4.6); Lymphocytes % 37.6 %; Mean Corpuscular HGB Conc 31.9 g/dL (31.6-35.5); Mean Corpuscular Hemoglobin 29.7 pg (28.0-33.3); Mean Corpuscular Volume 93.1 fL (83.0-100.0); Mean Platelet Volume 11.1 fL (9.4-12.4); Monocytes # 0.7 K/mcL (0.0-1.3); Monocytes % 9.2 %; Neutrophils # 3.7 K/mcL (1.6-8.9); Platelet Count 185 K/mcL (140-400); Red Blood Count 3.77 M/mcL (3.82-4.97); Red Cell Distribution Width 12.7 % (11.5-14.5); Segmented Neutrophils % 47.7 %
[2016-09-05 01:09] LABS: BUN/Creatinine Ratio 15 (6-26); Blood Urea Nitrogen 15 mg/dL (7-20); Calcium 8.8 mg/dL (8.6-10.8); Carbon Dioxide 26 mEq/L (19-29); Chloride 103 mEq/L (98-109); Glucose 197 mg/dL (70-99); Magnesium 1.6 mg/dL (1.6-2.6); Osmolality,Calculated 290 (280-300); Potassium 3.7 mEq/L (3.5-4.5); Sodium 137 mEq/L (136-145); eGFR For African Americans > 60 (> 60); eGFR For Non-African Americans 52 (> 60)
[2016-09-05] MEDS: *HR* Heparin 5,000 UNIT/ML VIAL IVP PRN (01:11)
[2016-09-05] MEDS: Heparin 25,000 UNIT/500 ML D5W 25,000 UNIT/500 ML MLS IVC SCH (03:03)
[2016-09-05] MEDS: Insulin LISPRO 300 UNITS/3 ML VIAL SQ SCH ×2 (08:17→12:35)
[2016-09-05] MEDS: Magnesium Oxide 400 MG TABLET PO SCH (08:22)
[2016-09-05] MEDS: Diltiazem CD (24hr) 180 MG CAPSULE PO SCH (08:22)
[2016-09-05] MEDS: Gabapentin 300 MG CAPSULE PO SCH (08:22)
[2016-09-05] MEDS: Furosemide 20 MG TABLET PO SCH (08:22)
[2016-09-05] MEDS: Aspirin 81 MG TAB.CHEW PO SCH (08:23)
[2016-09-05] MEDS: Insulin DETEMIR 100 UNIT/ML X5UNITS SQ SCH (08:25)
--- NOTE | 2016-09-05 09:44 | Discharge Summary ---
Date of Encounter: 09/05/16 Time of Encounter: 09:41 - Discharge Diagnosis (1) Pulmonary embolus Priority: Primary Status: Acute Qualifiers: Pulmonary embolism type: other Chronicity: acute Acute cor pulmonale presence: without acute cor pulmonale Qualified Code(s): I26.99 - Other pulmonary embolism without acute cor pulmonale (2) Acute respiratory failure with hypoxemia Priority: Primary Status: Acute (3) DVT (deep venous thrombosis) Priority: Primary Status: Acute Qualifiers: DVT location: lower extremity Affected thrombotic vein of extremity: other lower extremity vein Laterality: left Chronicity: acute Qualified Code(s) : I82.492 - Acute embolism and thrombosis of other specified deep vein of left lower extremity (4) Atrial fibrillation Priority: Secondary Status: Chronic Qualifiers: Atrial fibrillation type: paroxysmal Qualified Code(s): I48.0 - Paroxysmal atrial fibrillation (5) Pancreatic adenoma Priority: Secondary Status: Chronic (6) Essential hypertension Priority: Secondary Status: Chronic (7) Diabetes mellitus Priority: Secondary Status: Chronic Qualifiers: Diabetes mellitus type: type 2 Diabetes mellitus complication status: with neurologic complications Diabetes mellitus complication detail: with unspecified neuropathy Diabetes mellitus senior care insulin use: with terminal make up operator use Qualified Code(s): E11.40 - Type 2 diabetes mellitus with diabetic neuropathy, unspecified; Z79.4 - technician terminal and repeater (current) use of insulin (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 outpatient f/u - Discharge Medications Prescriptions: ALPRAZolam [Xanax 0.5 MG Tablet] 0.5 mg PO DAILY PRN #10 tablet PRN Reason: Anxiety HYDROcodone/Acet 5/325 mg [[place] 5-325 mg] 1 tab PO QID PRN #14 tablet PRN Reason: Pain Home Medications: Calcium Carbonate/Vitamin D3 [Calcium 500-Vit D3 400 Tablet] 1 each PO DAILY [History] Cholecalciferol (Vitamin D3) [Vitamin D3] 1,000 unit PO DAILY 05/13/15 [History] Citalopram [CeleXA] 20 mg PO QPM 05/13/15 [History] Docusate [Colace] 100 mg PO DAILY PRN 05/13/15 [History] Furosemide [Lasix] 40 mg PO QAM 05/13/15 [History] Gabapentin [Neurontin] 300 mg PO BID 05/13/15 [History] Glimepiride [Amaryl] 4 mg PO QAM 05/13/15 [History] Glucosamine HCl/Chondr Mcghee A Na [Cvs Glucosamine-Chondr Caplet] 1 each PO QPM [History] Losartan [Cozaar] 50 mg PO BID 05/13/15 [History] Magnesium Oxide [Magnesium] 400 mg PO QAM 05/13/15 [History] Omeprazole [PriLOSEC] 40 mg PO QAM 05/13/15 [History] Pravastatin Sodium [Pravachol] 40 mg PO QPM 05/13/15 [History] Sotalol [Betapace] 80 mg PO BID 05/13/15 [History] Aspirin 81 mg PO DAILY 09/02/16 [History] Bisacodyl [Dulcolax] 10 mg RC DAILY PRN 09/02/16 [History] Diltiazem HCl [Diltiazem 24Hr Cd] 180 mg PO BID 09/02/16 [History] Glimepiride [Amaryl] 2 mg PO QPM 09/02/16 [History] GuaiFENesin/Dextromethorphan [Tussin Dm Syrup] 5 ml PO QID PRN 09/02/16 [History ] Guaifenesin [Mucinex] 600 mg PO BID 09/02/16 [History] Insulin DETEMIR [Levemir] 15 unit SQ HS 09/02/16 [History] Insulin DETEMIR [Levemir] 16 unit SQ QAM 09/02/16 [History] Insulin LISPRO [HumaLOG] 4 unit SQ 1200,1700 MDD Lunch & Dinner 09/02/16 [ History] Loperamide [Imodium] 2 mg PO PER PKG DI PRN MDD 16 mg 09/02/16 [History] Nystatin POWDER [Nystop] 1 appl TP BID PRN 09/02/16 [History] Potassium Chloride [Klor-Con 10] 10 meq PO DAILY 09/02/16 [History] ALPRAZolam [Xanax 0.5 MG Tablet] 0.5 mg PO DAILY PRN #10 tablet 09/05/16 [Rx] Apixaban [Eliquis] 5 mg PO BID tablet 09/05/16 [Rx] HYDROcodone/Acet 5/325 mg [[place] 5-325 mg] 1 tab PO QID PRN #14 tablet 09/05/16 [Rx] Allergies/Adverse Reactions: Allergies naproxen [From Aleve] Allergy (Mild, Verified 05/24/15 17:46) Blister NOT ABLE TO TAKE ANY NSAIDS DUE TO A HISTORY OF BLEEDING ULCERS ibuprofen Adverse Reaction (Mild, Verified 05/24/15 17:45) Abdominal Pain patient reports bleeding ulcers with use metformin Adverse Reaction (Verified 09/02/16 19:07) See Comments list from [facility] Procedures/tests Complete & Pending: Procedures Performed prior 72 hours Category Date Time Status CTA chest [CT angio chest] [CT] Routine Cat Scan 09/03/16 13:00 Completed EV venous imaging LE LT Routine Y 09/03/16 10:40 Completed Date of admission: 09/03/16 00:09 Primary care physician: PCP NO - Patient Status Disposition: Transfer SNF Condition: Good Functional capacity at discharge: uses cane/walker Overall status at discharge: patient is progressing back to baseline - Discharge Instructions Follow Up With: NO,PCP [Primary Care Provider] - - Diet and Activity Activity: resume usual activities as tolerated, wear oxygen at all times (2L [place]) Diet: diabetic diet, low fat, low cholesterol, low salt diet Interval History: no chest pain. no shortness of breath. Hospital course: Ms. De León is a 86 year old female with past medical history of afib, htn and diabetes who was found to have pulmonary embolism, incidentally, on CT of the abdomen with/without contrast for evaluation of renal cyst. On ED, she was hypoxic and requiring 3 L of oxygen via [place]. Dedicated CTA of the chest showed right-sided pulmonary emboli at the bifurcation of the right main pulmonary artery extending into the right upper lobe pulmonary artery and descending right pulmonary artery into basilar segmental branches with no evidence of infarct and a 4.5 cm descending thoracic AA. Lower extremity venous Doppler showed left-sided DVT at the CFV/SFV/popliteal vein level. She was started on heparin drip and oxygen was titrated down to 2L [place]. She transitioned to Eliquis at the time of discharge (5 mg twice a day). Patient and family explained in detail the diagnosis and treatment options. they verbalized understanding and agreed with the plan. PLAN: Eliquid 5 mg bid. f/u with pcp for PE, HTN, AA. - Time Spent with Patient Total time spent providing and/or coordinating discharge services: - Constitutional Vitals: Temp Pulse Resp BP Pulse Ox 97.8 F 68 16 158/79 94 09/05/16 06:40 09/05/16 06:40 09/05/16 06:40 09/05/16 06:40 09/05/16 06:40 General appearance: Present: cooperative, A&O X 3, pleasant, no acute distress, answers questions appropriately - Neck Neck exam general surgery: Present: supple, trachea midline. Absent: lymphadenopathy - Respiratory Respiratory exam: Present: CTAB - Cardiovascular Cardiovascular exam: Present: RRR - GI/Abdominal GI/Abdominal exam: Present: normal bowel sounds, soft. Absent: distended, tenderness - Extremities Exam Extremities exam: Present: pedal edema (left ankle) - Back Exam Back exam: Absent: CVA tenderness (L), CVA tenderness (R) - Neurological Exam Neurological exam: Present: alert - Skin Skin exam: Absent: rash
[2016-09-05] MEDS ORDERED: APIXABAN 5 MG TABLET PO SCH ×2 (09:45→10:00)
--- NOTE | 2016-09-05 09:57 | Physician Discharge Referral ---
[facility] Referral Info Transfer To: [facility] Provider in Charge: miko Provider in Charge after Transfer: PCP Institutional Level of Care: Skilled - Diagnosis (1) Pulmonary embolus Status: Acute (2) Acute respiratory failure with hypoxemia Status: Acute (3) DVT (deep venous thrombosis) Status: Acute (4) Atrial fibrillation Status: Chronic (5) Pancreatic adenoma Status: Chronic (6) Essential hypertension Status: Chronic (7) Diabetes mellitus Status: Chronic (8) Descending thoracic aortic aneurysm Status: Chronic - Transfer Medications Prescriptions: ALPRAZolam [Xanax 0.5 MG Tablet] 0.5 mg PO DAILY PRN #10 tablet PRN Reason: Anxiety HYDROcodone/Acet 5/325 mg [[place] 5-325 mg] 1 tab PO QID PRN #14 tablet PRN Reason: Pain Home Medications: Calcium Carbonate/Vitamin D3 [Calcium 500-Vit D3 400 Tablet] 1 each PO DAILY [History] Cholecalciferol (Vitamin D3) [Vitamin D3] 1,000 unit PO DAILY 05/13/15 [History] Citalopram [CeleXA] 20 mg PO QPM 05/13/15 [History] Docusate [Colace] 100 mg PO DAILY PRN 05/13/15 [History] Furosemide [Lasix] 40 mg PO QAM 05/13/15 [History] Gabapentin [Neurontin] 300 mg PO BID 05/13/15 [History] Glimepiride [Amaryl] 4 mg PO QAM 05/13/15 [History] Glucosamine HCl/Chondr Mcghee A Na [Cvs Glucosamine-Chondr Caplet] 1 each PO QPM [History] Losartan [Cozaar] 50 mg PO BID 05/13/15 [History] Magnesium Oxide [Magnesium] 400 mg PO QAM 05/13/15 [History] Omeprazole [PriLOSEC] 40 mg PO QAM 05/13/15 [History] Pravastatin Sodium [Pravachol] 40 mg PO QPM 05/13/15 [History] Sotalol [Betapace] 80 mg PO BID 05/13/15 [History] Aspirin 81 mg PO DAILY 09/02/16 [History] Bisacodyl [Dulcolax] 10 mg RC DAILY PRN 09/02/16 [History] Diltiazem HCl [Diltiazem 24Hr Cd] 180 mg PO BID 09/02/16 [History] Glimepiride [Amaryl] 2 mg PO QPM 09/02/16 [History] GuaiFENesin/Dextromethorphan [Tussin Dm Syrup] 5 ml PO QID PRN 09/02/16 [History ] Guaifenesin [Mucinex] 600 mg PO BID 09/02/16 [History] Insulin DETEMIR [Levemir] 15 unit SQ HS 09/02/16 [History] Insulin DETEMIR [Levemir] 16 unit SQ QAM 09/02/16 [History] Insulin LISPRO [HumaLOG] 4 unit SQ 1200,1700 MDD Lunch & Dinner 09/02/16 [ History] Loperamide [Imodium] 2 mg PO PER PKG DI PRN MDD 16 mg 09/02/16 [History] Nystatin POWDER [Nystop] 1 appl TP BID PRN 09/02/16 [History] Potassium Chloride [Klor-Con 10] 10 meq PO DAILY 09/02/16 [History] ALPRAZolam [Xanax 0.5 MG Tablet] 0.5 mg PO DAILY PRN #10 tablet 09/05/16 [Rx] Apixaban [Eliquis] 5 mg PO BID tablet 09/05/16 [Rx] HYDROcodone/Acet 5/325 mg [[place] 5-325 mg] 1 tab PO QID PRN #14 tablet 09/05/16 [Rx] Allergies/Adverse Reactions: Allergies naproxen [From Aleve] Allergy (Mild, Verified 05/24/15 17:46) Blister NOT ABLE TO TAKE ANY NSAIDS DUE TO A HISTORY OF BLEEDING ULCERS ibuprofen Adverse Reaction (Mild, Verified 05/24/15 17:45) Abdominal Pain patient reports bleeding ulcers with use metformin Adverse Reaction (Verified 09/02/16 19:07) See Comments list from [facility] - Respiratory Orders Oxygen / L per min (2L [place]) Smoking Cessation: Smoking cessation has been advised. For more information, call the [place] [employer] Quit Line at 8-297-TWSB-NOW. - Advance Directives Code Status: DNR-Arrest/Don't Intubate - Mobility Orders Ambulate (with assistance) - Rehabiliation Orders Rehab Potential: Fair Rehab Orders: Evaluation for Physical Therapy, Evaluation for Occupational Therapy - Treatments Skin tear care topically daily PRN per policy, May check for fecal impaction rectally daily PRN - Diet Orders No Added Salt (HARLEY), No Concentrated Sweets, Cardiac CERTIFICATION: I certify that the transfer of the above named patient to an Extended Care Facility is necessary for the continuing treatment of the diagnosis listed. The above information is true and accurate reflection of patient's current condition. Confidential - Redisclosure prohibited without a patient's written consent.
[2016-09-05 10:53] VITALS: BP 154/83
== END 2016-09-05 13:30 | DRG 175 ==
LOC: EMEROO 16:36 → 3NENU 16:36 → SUATTDRO 09-03 00:09
PROVIDERS: ADMIT Internal Medicine; ATTEND Internal Medicine

== ENCOUNTER 2016-10-30 21:01 | Observation (INO) ==
--- NOTE | 2016-10-30 21:17 | Emergency Department Note ---
START Narrative - START START: I examined this patient and my medical decision-making was reviewed with the Resident Physician. I agree with the documented findings, disposition and treatment plan as described except to the extent set forth below. 86-year-old female presents to the emergency room for urinary retention. States she has been unable to void well today. Having some suprapubic abdominal pain and lower back pain associated with this. We did place a Jensen catheter and got over a liter of urine out. She states the back pain is improved as well as the abdominal pain. She was found to be slightly hypoxic during her initial visit here in the ER. We will obtain a chest x-ray to see if she is developing any infiltrate. She states she had a history of a recent pneumonia. She denies chest pain. She has a DNR comfort care.
--- NOTE | 2016-10-30 21:26 | Emergency Department Note ---
Disposition Clinical Impression: Urinary retention, Hypoxia Back pain Qualifiers: Back pain location: low back pain Chronicity: unspecified Back pain laterality : midline Sciatica presence: without sciatica Qualified Code(s): M54.5 - Low back pain Disposition: Admitted As Inpatient Condition: Fair Referrals: NONE,PCP [Non-Partnered Physician] - Forms: ED Satisfaction Letter General Adult HPI - General Chief complaint: ED Urogenital-Female Stated complaint: unable to void Time Seen by Provider: 10/30/16 21:09 Source: patient, EMS Mode of arrival: EMS Limitations: age Nursing Notes Reviewed: Yes Vital Signs Reviewed: Yes - History of Present Illness HPI Narrative: 86-year-old female history of atrial fibrillation on anticoagulation, diabetes, hypertension, prior orthopedic spinal surgery who presents to the ER via EMS from the nursing facility due to difficulty voiding and back pain. Patient states that around 3 days ago she started having back pain. Reports prior surgeries in the 60s and 70s. She states today she was unable to urinate and they were unable to place a Jensen at the nursing facility. She denies numbness tingling paresthesias or weakness of her lower extremities. She reports that she was short of breath about a month ago and they checked a chest x-ray and it was okay. No other complaints. She is DNR CC by the provided paperwork. Pt Subjective Complaint: Urinary retention, back pain Onset (ago): hour(s) Location: back Radiation: non-radiation Pain Severity: severe Pain Scale: 10 Quality: aching Consistency: constant Improves with: nothing Worsens with: nothing Associated symptoms: Denies: chest pain, cough, fever/chills, nausea/vomiting, shortness of breath Treatments Prior to Arrival: none - Related Data Home Medications Medication Instructions Recorded Confirmed Calcium Carbonate/Vitamin D3 1 each PO DAILY 05/13/15 10/04/16 [Calcium 500-Vit D3 400 Tablet] Cholecalciferol (Vitamin D3) 1,000 unit PO DAILY 05/13/15 10/04/16 [Vitamin D3] Citalopram [CeleXA] 20 mg PO QPM 05/13/15 10/04/16 Furosemide [Lasix] 40 mg PO QAM 05/13/15 10/04/16 Gabapentin [Neurontin] 300 mg PO BID 05/13/15 10/04/16 Glimepiride [Amaryl] 4 mg PO QAM 05/13/15 10/04/16 Glucosamine HCl/Chondr Mcghee A Na 1 each PO QPM 05/13/15 10/04/16 [[facility]vs Glucosamine-Chondr Caplet] Losartan [Cozaar] 50 mg PO BID 05/13/15 10/04/16 Magnesium Oxide [Magnesium] 400 mg PO QAM 05/13/15 10/04/16 Omeprazole [PriLOSEC] 40 mg PO QAM 05/13/15 10/04/16 Pravastatin Sodium [Pravachol] 40 mg PO QPM 05/13/15 10/04/16 Sotalol [Betapace] 80 mg PO BID 05/13/15 10/04/16 Aspirin 81 mg PO DAILY 09/02/16 10/04/16 Diltiazem HCl [Diltiazem 24Hr Cd] 180 mg PO BID 09/02/16 10/04/16 Glimepiride [Amaryl] 2 mg PO QAM 09/02/16 10/04/16 Potassium Chloride [Klor-Con 10] 10 meq PO DAILY 09/02/16 10/04/16 Benzonatate [Tessalon] 100 mg PO TID 10/04/16 10/04/16 Guaifenesin [Mucinex] 600 mg PO BID 10/04/16 10/04/16 Levofloxacin [Levaquin] 750 mg PO DAILY 10/04/16 10/04/16 Previous Rx's Medication Instructions Recorded Apixaban [Eliquis] 5 mg PO BID tablet 09/05/16 Allergies Allergy/AdvReac Type Severity Reaction Status Date / Time naproxen [From Aleve] Allergy Mild Blister Verified 10/04/16 13:43 aspirin [ASA] Allergy See Verified 10/04/16 13:43 Comments ibuprofen AdvReac Mild Abdominal Verified 10/04/16 13:43 Pain metformin AdvReac See Verified 10/04/16 13:43 Comments All systems ED: reviewed and negative except as stated. Constitutional: Denies: fever Cardiovascular: Denies: chest pain Respiratory: Denies: cough, dyspnea Gastrointestinal: Denies: abdominal pain Musculoskeletal: Reports: back pain. Denies: neck pain Neurological: Denies: numbness, paresthesias Past Medical History - Past Medical History Attestation: Yes The following information was validated with the patient. Source: patient Medical history: Reports: atrial fibrillation, DVT, diabetes, GI bleed, hyperlipidemia, hypertension, renal disease, other Surgical history: Reports: appendectomy, cholecystectomy, herniorrhaphy, hysterectomy, orthopedic, other, pacemaker/AICD Psychiatric history: Reports: anxiety LOCOMOTIVE OILER history: Reports: no LOCOMOTIVE OILER history, other - Social History Smoking Status: Never smoker Smokeless Tobacco Status: No Alcohol use: Reports: none Drug use: Reports: none Physical Exam - General Limitations: age General appearance: alert, in no apparent distress - Head Head exam: atraumatic, normocephalic, normal inspection - Eye Eye exam: Present: normal appearance, EOMI - ENT ENT exam: normal exam - Neck Neck exam: Present: normal inspection, full ROM - Chest Chest inspection: Present: normal inspection - Respiratory Respiratory exam: Present: normal lung sounds bilaterally - Cardiovascular Cardiovascular exam: Present: regular rate, normal rhythm, normal heart sounds - Abdominal Exam Abdominal exam: Present: soft, Non-Tender. Absent: tenderness - Extremities Exam Extremities exam: Present: normal inspection, full ROM - Expanded Upper Extremity Exam Shoulder exam: Present: normal inspection, full ROM Arm exam: Present: normal inspection, full ROM Elbow exam: Present: normal inspection, full ROM Forearm/Wrist exam: Present: normal inspection, full ROM Hand exam: Present: normal inspection, full ROM - Expanded Lower Extremity Exam Hip/Pelvis exam: Present: normal inspection, full ROM Upper leg exam: Present: normal inspection, full ROM Knee exam: Present: normal inspection, full ROM Lower leg exam: Present: normal inspection, full ROM Ankle exam: Present: normal inspection, full ROM Foot/toe exam: Present: normal inspection, full ROM Neurovascular/Tendon exam: Absent: motor deficit, sensory deficit - Back Exam Back exam: Present: normal inspection, paraspinal tenderness (Lumbar). Absent: CVA tenderness (R), CVA tenderness (L) - Neurological Exam Neurological exam: Present: alert, other (GCS 15. Nonfocal neurologic exam. Moves all extremities equally.). Absent: motor sensory deficit - Psychiatric Psychiatric exam: Present: normal affect, normal mood - Skin Skin exam: Present: warm, dry, intact, normal color Course Course Narrative: Patient seen and examined. Vital signs reviewed. She is hypoxic here at 88-89 % on room air. Patient placed on nasal cannula. We will obtain a chest x-ray and place a Jensen. Bedside ultrasound demonstrates a moderate sized bladder - Reevaluation(s) Reevaluation #1: Family at bedside discussed having labs drawn. Ordered at this time. Vital Signs Temperature 97.9 F 10/30/16 21:03 Pulse Rate 69 10/30/16 21:03 Respiratory Rate 18 10/30/16 21:03 Blood Pressure 166/79 10/30/16 21:03 O2 Sat by Pulse Oximetry 89 10/30/16 21:03 Temperature 97.9 F 10/30/16 21:03 Pulse Rate 60 10/30/16 22:45 Respiratory Rate 18 10/30/16 22:45 Blood Pressure 146/73 10/30/16 22:45 O2 Sat by Pulse Oximetry 97 10/30/16 22:45 Oxygen Delivery Oxygen Delivery Nasal Cannula Medical Decision Making - MDM Narrative Medical decision making narrative: 86-year-old female presents to the ER from nursing facility due to urinary retention. Jensen was placed in the ER without difficulty. Urinalysis does not show UTI. She was also hypoxic. 80-89% with no history of O2 requirement. She has a slight CARLOTA on labs and given IV fluids here. Admitted to the hospitalist service for further management. - Lab Data Lab results reviewed: Yes I reviewed the patient's lab results. Result diagrams: 10/30/16 22:11 10/30/16 22:11 Lab Results 10/30/16 10/30/16 10/30/16 Range/Units 21:20 22:11 22:11 WBC 7.4 (4.3-11.1) K/mcL RBC 3.68 L (3.82-4.97) M/mcL Hgb 10.6 L (11.5-15.4) g/dL Hct 34.6 L (35.3-44.9) % MCV 94.0 (83.0-100.0) fL MCH 28.8 (28.0-33.3) pg MCHC 30.6 L (31.6-35.5) g/dL RDW 12.3 (11.5-14.5) % Plt Count 214 (140-400) K/mcL MPV 11.0 (9.4-12.4) fL Immature Gran % 0.1 (0-4) % Seg Neutrophils % 52.2 % Lymphocytes % 32.5 % Monocytes % 11.0 % Eosinophils % 3.8 % Basophils % 0.4 % Neutrophils # 3.9 (1.6-8.9) K/mcL Lymphocytes # 2.4 (0.6-4.6) K/mcL Monocytes # 0.8 (0.0-1.3) K/mcL Eosinophils # 0.3 (0.0-0.6) K/mcL Basophils # 0.0 (0.0-0.2) K/mcL Immature Plt Fraction 6.4 H (1.1-6.1) % Sodium 134 L (136-145) mEq/L Potassium 4.7 H (3.5-4.5) mEq/L Chloride 100 (98-109) mEq/L Carbon Dioxide 28 (19-29) mEq/L BUN 28 H (7-20) mg/dL Creatinine 1.39 H (0.57-1.11) mg/dL Est GFR ( Amer) 44 L (> 60) Est GFR (Non-Af Amer) 36 L (> 60) BUN/Creatinine Ratio 20 (6-26) Glucose 232 H (70-99) mg/dL Calculated Osmolality 291 (280-300) Calcium 9.0 (8.6-10.8) mg/dL Troponin I (0-0.03) ng/mL Urine Color Yellow (Yellow) Urine Clarity Clear (Clear) Urine pH 6.0 (5.0-8.0) pH Units Ur Specific [place] 1.017 (1.010-1.025) Urine Protein Negative (Neg-Trace) mg/dL Urine Glucose (UA) Normal (Normal) mg/dL Urine Ketones Negative (Negative) mg/dL Urine Blood Negative (Negative) Urine Nitrite Negative (Negative) Urine Bilirubin Negative (Negative) Urine Urobilinogen Normal (Normal) mg/dL Ur Leukocyte Esterase Negative (Negative) Ur Culture Indicated? NO (NO) 10/30/16 Range/Units 22:11 WBC (4.3-11.1) K/mcL RBC (3.82-4.97) M/mcL Hgb (11.5-15.4) g/dL Hct (35.3-44.9) % MCV (83.0-100.0) fL MCH (28.0-33.3) pg MCHC (31.6-35.5) g/dL RDW (11.5-14.5) % Plt Count (140-400) K/mcL MPV (9.4-12.4) fL Immature Gran % (0-4) % Seg Neutrophils % % Lymphocytes % % Monocytes % % Eosinophils % % Basophils % % Neutrophils # (1.6-8.9) K/mcL Lymphocytes # (0.6-4.6) K/mcL Monocytes # (0.0-1.3) K/mcL Eosinophils # (0.0-0.6) K/mcL Basophils # (0.0-0.2) K/mcL Immature Plt Fraction (1.1-6.1) % Sodium (136-145) mEq/L Potassium (3.5-4.5) mEq/L Chloride (98-109) mEq/L Carbon Dioxide (19-29) mEq/L BUN (7-20) mg/dL Creatinine (0.57-1.11) mg/dL Est GFR ( Amer) (> 60) Est GFR (Non-Af Amer) (> 60) BUN/Creatinine Ratio (6-26) Glucose (70-99) mg/dL Calculated Osmolality (280-300) Calcium (8.6-10.8) mg/dL Troponin I 0.00 (0-0.03) ng/mL Urine Color (Yellow) Urine Clarity (Clear) Urine pH (5.0-8.0) pH Units Ur Specific [place] (1.010-1.025) Urine Protein (Neg-Trace) mg/dL Urine Glucose (UA) (Normal) mg/dL Urine Ketones (Negative) mg/dL Urine Blood (Negative) Urine Nitrite (Negative) Urine Bilirubin (Negative) Urine Urobilinogen (Normal) mg/dL Ur Leukocyte Esterase (Negative) Ur Culture Indicated? (NO) - Radiology Data Radiology results reviewed: Yes I reviewed the patient's radiology results. Chest X-Ray 10/30/16 21:15 IMPRESSION: 1. No acute abnormality detected. D/ / Jesus Paredes MD / Jesus Paredes MD Interpreting Provider: Jesus Paredes MD olyR. - Milena Situation: Demographics, MOA Background: Presenting Complaint, Relevant PMH, Meds, & Allergies Assessment: Vital Signs, Course and respsone to treatment, Exam Concerns, Patient/Family Expectation, Pertinant Lab Results, Outstanding Labs Recommendation: Barrier(s) to disposition, Recommendation based on pending studies, treatments, or consults Milena Report Given to: Dr. Dwight Abbott Repor Time: 23:15
[2016-10-30 21:29] LABS: Bilirubin,Urine Negative (Negative); Blood,Urine Negative (Negative); Clarity,Urine Clear (Clear); Color,Urine Yellow (Yellow); Glucose,Urine (UA) Normal (Normal); Ketones,Urine Negative (Negative); Leukocyte Esterase,Urine Negative (Negative); Nitrite,Urine Negative (Negative); Protein,Urine Negative (Neg-Trace); Specific Gravity,Urine 1.017 (1.010-1.025); Urobilinogen,Urine Normal (Normal)
[2016-10-30 22:27] LABS: Basophils % 0.4 %; Eosinophils # 0.3 K/mcL (0.0-0.6); Eosinophils % 3.8 %; Hematocrit 34.6 % (35.3-44.9); Hemoglobin 10.6 g/dL (11.5-15.4); Immature Granulocytes % 0.1 % (0-4); Immature Platelets 6.4 % (1.1-6.1); Lymphocytes # 2.4 K/mcL (0.6-4.6); Lymphocytes % 32.5 %; Mean Corpuscular HGB Conc 30.6 g/dL (31.6-35.5); Mean Corpuscular Hemoglobin 28.8 pg (28.0-33.3); Monocytes # 0.8 K/mcL (0.0-1.3); Neutrophils # 3.9 K/mcL (1.6-8.9); Platelet Count 214 K/mcL (140-400); Red Blood Count 3.68 M/mcL (3.82-4.97); Red Cell Distribution Width 12.3 % (11.5-14.5); Segmented Neutrophils % 52.2 %
[2016-10-30 22:39] LABS: Potassium 4.7 mEq/L (3.5-4.5)
[2016-10-30] MEDS ORDERED: 0.9 % Sodium Chloride 500 ML IVC ONE (22:53)
[2016-10-31] MEDS ORDERED: Naloxone 0.4 MG/ML INJ IVP PRN (01:11)
--- NOTE | 2016-10-31 01:18 | Internal Med History&Physical ---
Date of Encounter: 10/31/16 Time of Encounter: 01:16 Assessment and Plan (1) Urinary retention Current visit: Yes Status: Acute blunt placement, UA clean, consult urology to assist with management and outpatient follow up for bladder retraining (2) Atrial fibrillation Current visit: No Status: Chronic on eliquis, continue cardiac meds Qualifiers: Atrial fibrillation type: paroxysmal Qualified Code(s): I48.0 - Paroxysmal atrial fibrillation (3) Radiculopathy of lumbosacral region Current visit: No Status: Acute appears to have a mild exacerbation (4) Diabetes mellitus Current visit: No Status: Chronic continue home meds Qualifiers: Diabetes mellitus type: type 2 Diabetes mellitus complication status: with neurologic complications Diabetes mellitus complication detail: with unspecified neuropathy Diabetes mellitus termite 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 She was evaluated at the SNF home and per report, was found to be in urinary retention with a full bladder. She received a blunt cath with some resolution of symptom. UA was wnl. No new medications were identified from SNF report. Of note, in the ED, she required minimal supplementary oxygen but CXR clear and she is on eliquis Past Med Surg Social Fam HX - Past Medical History Medical history: atrial fibrillation, DVT, diabetes, GI bleed, hyperlipidemia, hypertension, renal disease, other Psychiatric history: anxiety - Past Surgical History Surgical History: appendectomy, cholecystectomy, herniorrhaphy, hysterectomy, orthopedic, other, pacemaker/AICD - Social History Smoking Status: Never smoker Smokeless Tobacco Status: No Alcohol use: none Drug use: none - Family History Father Living Status: Mother Living Status: Internal Medicine - H&P: Meds Calcium Carbonate/Vitamin D3 [Calcium 500-Vit D3 400 Tablet] 1 each PO DAILY [History] Cholecalciferol (Vitamin D3) [Vitamin D3] 1,000 unit PO DAILY 05/13/15 [History] Citalopram [CeleXA] 20 mg PO QPM 05/13/15 [History] Furosemide [Lasix] 40 mg PO QAM 05/13/15 [History] Gabapentin [Neurontin] 300 mg PO BID 05/13/15 [History] Glimepiride [Amaryl] 4 mg PO QAM 05/13/15 [History] Glucosamine HCl/Chondr Mcghee A Na [Cvs Glucosamine-Chondr Caplet] 1 each PO QPM [History] Losartan [Cozaar] 50 mg PO BID 05/13/15 [History] Magnesium Oxide [Magnesium] 400 mg PO QAM 05/13/15 [History] Omeprazole [PriLOSEC] 40 mg PO QAM 05/13/15 [History] Pravastatin Sodium [Pravachol] 40 mg PO QPM 05/13/15 [History] Sotalol [Betapace] 80 mg PO BID 05/13/15 [History] Aspirin 81 mg PO DAILY 09/02/16 [History] Diltiazem HCl [Diltiazem 24Hr Cd] 180 mg PO BID 09/02/16 [History] Glimepiride [Amaryl] 2 mg PO QAM 09/02/16 [History] Potassium Chloride [Klor-Con 10] 10 meq PO DAILY 09/02/16 [History] Apixaban [Eliquis] 5 mg PO BID tablet 09/05/16 [Rx] Benzonatate [Tessalon] 100 mg PO TID 10/04/16 [History] Guaifenesin [Mucinex] 600 mg PO BID 10/04/16 [History] Levofloxacin [Levaquin] 750 mg PO DAILY 10/04/16 [History] Allergies naproxen [From Aleve] Allergy (Mild, Verified 10/04/16 13:43) Blister NOT ABLE TO TAKE ANY NSAIDS DUE TO A HISTORY OF BLEEDING ULCERS aspirin [ASA] Allergy (Verified 10/04/16 13:43) See Comments reports she had a bleeding ulcer ibuprofen Adverse Reaction (Mild, Verified 10/04/16 13:43) Abdominal Pain patient reports bleeding ulcers with use metformin Adverse Reaction (Verified 10/04/16 13:43) See Comments list from [facility] All Systems PM: A 10-system review of systems was performed and is negative for pertinent findings except as documented above in the HPI. Review of systems: ROS 14 point review of systems reviewed as best as possible given presentation. Pertinent positive or negative as per HPI or otherwise reviewed as negative - Constitutional Vitals: Temp Pulse Resp BP Pulse Ox 98.2 F 60 16 138/68 97 10/31/16 00:52 10/31/16 00:52 10/31/16 00:52 10/31/16 00:52 10/31/16 00:52 Exam: General - AAO x 3 Psych - Appropriate affect/speech. No agitation Eyes - ZARA. Eye lids intact. No scleral icterus ENT - Oral mucosa pink, dentition intact. External ear clear/dry/intact. No thyromegaly Lymphatics - No cervical/inguinal lympadenopathy Neuro - No gross peripheral or central neuro deficits with intact CN 2-12 exam Heart - Sinus. RRR. S1 and S2 present. No added HS/murmurs appreciated. No elevated JVD appreciated. +1 calf swellings/erythema Lung - Adequate air entry b/l, No crackes/wheezes appreciated GI - Soft, non-tender. No hepatosplenomegaly/ascites. BS+ - No CVA/suprapubic tenderness or palpable bladder distension Skin - Intact. No rash/petechiae/ecchymosis. Warm extremities MSK - right-sided lower hip pain Internal Med - H&P Results - Labs CBC & Chem 7: 10/30/16 22:11 10/30/16 22:11 - VTE Reasons for not Prescribing Prophylaxis: Not indicated-Anticoagulated or INR therapeutic
[2016-10-31] MEDS ORDERED: Ipratropium/Albuterol Neb 3 ML IH PRN (01:54)
[2016-10-31 04:01] LABS: Basophils % 0.5 %; Eosinophils # 0.3 K/mcL (0.0-0.6); Eosinophils % 3.5 %; Hematocrit 32.8 % (35.3-44.9); Hemoglobin 10.1 g/dL (11.5-15.4); Immature Granulocytes % 0.1 % (0-4); Lymphocytes # 2.5 K/mcL (0.6-4.6); Lymphocytes % 30.4 %; Mean Corpuscular HGB Conc 30.8 g/dL (31.6-35.5); Mean Corpuscular Hemoglobin 29.2 pg (28.0-33.3); Mean Corpuscular Volume 94.8 fL (83.0-100.0); Monocytes % 12.4 %; Neutrophils # 4.4 K/mcL (1.6-8.9); Platelet Count 193 K/mcL (140-400); Red Blood Count 3.46 M/mcL (3.82-4.97); Red Cell Distribution Width 12.3 % (11.5-14.5); Segmented Neutrophils % 53.1 %
[2016-10-31 04:19] LABS: Calcium 8.9 mg/dL (8.6-10.8); Potassium 4.8 mEq/L (3.5-4.5)
[2016-10-31] MEDS: Ipratropium/Albuterol Neb 3 ML IH SCH ×3 (04:24→15:45)
[2016-10-31] MEDS ORDERED: *HR* Glimepiride 4 MG TABLET PO SCH (08:00)
[2016-10-31] MEDS ORDERED: APIXABAN 5 MG TABLET PO SCH (09:00)
[2016-10-31] MEDS ORDERED: Furosemide 40 MG TABLET PO SCH (09:00)
[2016-10-31] MEDS ORDERED: Diltiazem CD (24hr) 180 MG CAPSULE PO SCH (09:00)
[2016-10-31] MEDS ORDERED: Cholecalciferol (D-3) 1,000 UNIT TABLET PO SCH (09:00)
[2016-10-31] MEDS ORDERED: Gabapentin 300 MG CAPSULE PO SCH (09:00)
[2016-10-31] MEDS ORDERED: [Calcium 500-Vit D3 PO SCH (09:00)
[2016-10-31] MEDS ORDERED: Aspirin 81 MG TAB.CHEW PO SCH (09:00)
[2016-10-31] MEDS ORDERED: Magnesium Oxide 400 MG TABLET PO SCH (09:00)
--- NOTE | 2016-10-31 10:36 | Urology - Consult Note ---
Date of Encounter: 10/31/16 Time of Encounter: 10:34 - Assessment and Plan (1) Back pain Current Visit: Yes Status: Acute Assessment and plan: unsure of etiology at this time. not urological in nature Qualifiers: Back pain location: low back pain Chronicity: unspecified Back pain laterality: midline Sciatica presence: without sciatica Qualified Code(s): M54.5 - Low back pain (2) Urinary retention Current Visit: Yes Status: Acute Assessment and plan: keep blunt at this time. can f/u with DR. alves for possible voiding trial in 1-2 weeks Urology CN:HPI Consult date: 10/31/16 Reason for consult Urology: Other (urinary retention) Requesting physician: Belinda Quintanilla History of present illness: Edel is an 86-year-old female who was admitted to the hospital secondary to back pain and urinary retention. Patient states that she had a catheter placed earlier which relieved a significant amount of pressure in her lower abdomen. Patient is known to Dr. Alves secondary to complex renal cyst. Patient was found on CT scan in August to have a large pulmonary embolism. Patient states that her back pain has not resolved with the placement of the catheter. Past Med Surg Social Fam HX - Past Medical History Medical history: atrial fibrillation, DVT, diabetes, GI bleed, hyperlipidemia, hypertension, renal disease, other Psychiatric history: anxiety - Past Surgical History Surgical History: appendectomy, cholecystectomy, herniorrhaphy, hysterectomy, orthopedic, other, pacemaker/AICD - Social History Smoking Status: Never smoker Smokeless Tobacco Status: No Alcohol use: none Drug use: none - Family History Father Living Status: Mother Living Status: Medications and Allergies Calcium Carbonate/Vitamin D3 [Calcium 500-Vit D3 400 Tablet] 1 each PO DAILY [History] Cholecalciferol (Vitamin D3) [Vitamin D3] 1,000 unit PO DAILY 05/13/15 [History] Citalopram [CeleXA] 20 mg PO QPM 05/13/15 [History] Furosemide [Lasix] 40 mg PO QAM 05/13/15 [History] Gabapentin [Neurontin] 300 mg PO BID 05/13/15 [History] Glimepiride [Amaryl] 4 mg PO QAM 05/13/15 [History] Glucosamine HCl/Chondr Mcghee A Na [Cvs Glucosamine-Chondr Caplet] 1 each PO QPM [History] Losartan [Cozaar] 50 mg PO BID 05/13/15 [History] Magnesium Oxide [Magnesium] 400 mg PO QAM 05/13/15 [History] Omeprazole [PriLOSEC] 40 mg PO QAM 05/13/15 [History] Pravastatin Sodium [Pravachol] 40 mg PO QPM 05/13/15 [History] Sotalol [Betapace] 80 mg PO BID 05/13/15 [History] Aspirin 81 mg PO DAILY 09/02/16 [History] Diltiazem HCl [Diltiazem 24Hr Cd] 180 mg PO BID 09/02/16 [History] Glimepiride [Amaryl] 2 mg PO QAM 09/02/16 [History] Potassium Chloride [Klor-Con 10] 10 meq PO DAILY 09/02/16 [History] Apixaban [Eliquis] 5 mg PO BID tablet 09/05/16 [Rx] Benzonatate [Tessalon] 100 mg PO TID 10/04/16 [History] Guaifenesin [Mucinex] 600 mg PO BID 10/04/16 [History] Levofloxacin [Levaquin] 750 mg PO DAILY 10/04/16 [History] Allergies naproxen [From Aleve] Allergy (Mild, Verified 10/04/16 13:43) Blister NOT ABLE TO TAKE ANY NSAIDS DUE TO A HISTORY OF BLEEDING ULCERS aspirin [ASA] Allergy (Verified 10/04/16 13:43) See Comments reports she had a bleeding ulcer ibuprofen Adverse Reaction (Mild, Verified 10/04/16 13:43) Abdominal Pain patient reports bleeding ulcers with use metformin Adverse Reaction (Verified 10/04/16 13:43) See Comments list from [facility] Review of Systems - Constitutional no chills - EENT Nose, mouth and throat: no dizziness - Cardiovascular no chest pain - Respiratory no cough - Gastrointestinal no abdominal pain - Musculoskeletal back pain - Integumentary no erythema - Neurological no confusion Exam Initial Vital Signs Temp Pulse Resp BP Pulse Ox 97.9 F 69 18 166/79 89 10/30/16 21:03 10/30/16 21:03 10/30/16 21:03 10/30/16 21:03 10/30/16 21:03 - General physical appearance Present: well developed - Eyes Present: PERRL - ENT Present: normal nares - Respiratory Present: normal respiratory effort - Cardiovascular Cardiovascular exam IM: RRR - Abdomen Abdomen: Present: soft - Genitourinary Present: other (urine clear in tubing) Urology Results - Labs 10/31/16 03:49 10/31/16 03:49 Abnormal lab results RBC 3.46 M/mcL (3.82-4.97) L 10/31/16 03:49 Hgb 10.1 g/dL (11.5-15.4) L 10/31/16 03:49 Hct 32.8 % (35.3-44.9) L 10/31/16 03:49 MCHC 30.8 g/dL (31.6-35.5) L 10/31/16 03:49 Immature Plt Fraction 6.4 % (1.1-6.1) H 10/30/16 22:11 Sodium 134 mEq/L (136-145) L 10/31/16 03:49 Potassium 4.8 mEq/L (3.5-4.5) H 10/31/16 03:49 BUN 25 mg/dL (7-20) H 10/31/16 03:49 Creatinine 1.35 mg/dL (0.57-1.11) H 10/31/16 03:49 Est GFR ( Amer) 45 (> 60) L 10/31/16 03:49 Est GFR (Non-Af Amer) 37 (> 60) L 10/31/16 03:49 Glucose 212 mg/dL (70-99) H 10/31/16 03:49 Diabetes panel 10/31/16 Range/Units 03:49 Sodium 134 L (136-145) mEq/L Potassium 4.8 H (3.5-4.5) mEq/L Chloride 101 (98-109) mEq/L Carbon Dioxide 29 (19-29) mEq/L BUN 25 H (7-20) mg/dL Creatinine 1.35 H (0.57-1.11) mg/dL Glucose 212 H (70-99) mg/dL Calcium 8.9 (8.6-10.8) mg/dL Calcium panel 10/31/16 Range/Units 03:49 Calcium 8.9 (8.6-10.8) mg/dL Pituitary panel 10/31/16 Range/Units 03:49 Sodium 134 L (136-145) mEq/L Potassium 4.8 H (3.5-4.5) mEq/L Chloride 101 (98-109) mEq/L Carbon Dioxide 29 (19-29) mEq/L BUN 25 H (7-20) mg/dL Creatinine 1.35 H (0.57-1.11) mg/dL Glucose 212 H (70-99) mg/dL Calcium 8.9 (8.6-10.8) mg/dL Adrenal panel 10/31/16 Range/Units 03:49 Sodium 134 L (136-145) mEq/L Potassium 4.8 H (3.5-4.5) mEq/L Chloride 101 (98-109) mEq/L Carbon Dioxide 29 (19-29) mEq/L BUN 25 H (7-20) mg/dL Creatinine 1.35 H (0.57-1.11) mg/dL Glucose 212 H (70-99) mg/dL Calcium 8.9 (8.6-10.8) mg/dL All other labs normal. Consult Discharge Plan - Plan Referrals: Arjun Lizama MD [Primary Care Provider] -
[2016-10-31 11:52] VITALS: BP 136/68
--- NOTE | 2016-10-31 13:36 | Discharge Summary ---
Date of Encounter: 10/31/16 Time of Encounter: 13:00 - Discharge Diagnosis (1) Urinary retention Priority: Primary Status: Resolved Comments: unclear causation. Patient's daughter stating the patient has a history of bladder prolapse and nursing note mentioned possible prolapse when blunt was placed. Seen by urology and cleared for outpatient followup. (2) Radiculopathy of lumbosacral region Priority: Secondary Status: Chronic Comments: patient denied pain on day of discharge. (3) Essential hypertension Priority: Secondary Status: Chronic Comments: Controlled, follow-up outpatient (4) Diabetes mellitus, type 2 Priority: Secondary Status: Chronic Comments: Controlled with an A1c of 7.8%. Follow-up outpatient. 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 Followup outpatient. (7) DVT prophylaxis Priority: Primary Status: Acute Comments: Observation patient - Discharge Medications Home Medications: Calcium Carbonate/Vitamin D3 [Calcium 500-Vit D3 400 Tablet] 1 each PO DAILY [History] Cholecalciferol (Vitamin D3) [Vitamin D3] 1,000 unit PO DAILY 05/13/15 [History] Citalopram [CeleXA] 20 mg PO QPM 05/13/15 [History] Furosemide [Lasix] 40 mg PO QAM 05/13/15 [History] Gabapentin [Neurontin] 300 mg PO BID 05/13/15 [History] Glimepiride [Amaryl] 4 mg PO QAM 05/13/15 [History] Glucosamine HCl/Chondr Mcghee A Na [Cvs Glucosamine-Chondr Caplet] 1 each PO QPM [History] Losartan [Cozaar] 50 mg PO BID 05/13/15 [History] Magnesium Oxide [Magnesium] 400 mg PO QAM 05/13/15 [History] Omeprazole [PriLOSEC] 40 mg PO QAM 05/13/15 [History] Pravastatin Sodium [Pravachol] 40 mg PO QPM 05/13/15 [History] Sotalol [Betapace] 80 mg PO BID 05/13/15 [History] Aspirin 81 mg PO DAILY 09/02/16 [History] Diltiazem HCl [Diltiazem 24Hr Cd] 180 mg PO BID 09/02/16 [History] Glimepiride [Amaryl] 2 mg PO QPM 09/02/16 [History] Potassium Chloride [Klor-Con 10] 10 meq PO DAILY 09/02/16 [History] Apixaban [Eliquis] 5 mg PO BID tablet 09/05/16 [Rx] Guaifenesin [Mucinex] 600 mg PO BID 10/04/16 [History] diazePAM [Valium] 2 mg PO BID 10/31/16 [History] Allergies/Adverse Reactions: Allergies naproxen [From Aleve] Allergy (Mild, Verified 10/04/16 13:43) Blister NOT ABLE TO TAKE ANY NSAIDS DUE TO A HISTORY OF BLEEDING ULCERS aspirin [ASA] Allergy (Verified 10/04/16 13:43) See Comments reports she had a bleeding ulcer ibuprofen Adverse Reaction (Mild, Verified 10/04/16 13:43) Abdominal Pain patient reports bleeding ulcers with use metformin Adverse Reaction (Verified 10/04/16 13:43) See Comments list from [facility] Date of admission: 10/30/16 23:39 Primary care physician: Arjun Lizama MD Consults: 10/31/16 01:13 Consult to Urology [CONS] Routine Consulting Provider: Urology Neha Reason for Consult: urinary retention Call Completed: No Discharging clinician: Cynthia Manrique Anticipated date of discharge: 10/31/16 (resident of [facility] [place]) - Patient Status Disposition: Transfer Inpatient Rehab Fac Condition: Fair Functional capacity at discharge: uses cane/walker Overall status at discharge: patient is progressing back to baseline - Discharge Instructions Follow Up With: Arjun Lizama MD [Primary Care Provider] - Shoaib Alves MD [Partnered Physician] - Additional Instructions: Follow-up with primary care provider as needed, follow-up with urologist in 1-2 weeks - Diet and Activity Activity: increase activity as tolerated, resume usual activities as tolerated Diet: diabetic diet, low fat, low cholesterol, low salt diet Hospital course: Ms. De León is a 86 year old female resident of long[facility]term alf with history of atrial fibrillation on Eliquis, DVT, diabetes, hyperlipidemia, hypertension, chronic kidney disease, anxiety. Patient presented to the emergency department with chief complaint of 2-3 day history of back pain and right-sided hip pain that had worsened on the day of presentation. Per alf report, urinary retention was noted and her symptoms had improved with the placement of a Blunt catheter. Workup in the emergency department unremarkable. Urinalysis negative. Chest x-ray negative. Patient was admitted to the hospitalist service for further evaluation and management. Patient was seen by urology who cleared her for outpatient follow-up. She denied pain while admitted and was eager to return home. She was discharged back to alf in stable condition with close outpatient follow-up recommended. Of note, nursing report as catheter was being placed was that the patient had a possible prolapsed bladder-patient's daughter thinks that the patient has a history of this. We will leave Blunt catheter in place and have her follow up outpatient with urology Dr. Alves. ITS Impressions Chest X-Ray 10/30/16 21:15 IMPRESSION: 1. No acute abnormality detected. D/ / Jesus Paredes MD / Jesus Paredes MD Interpreting Provider: Jesus Paredes MD - Time Spent with Patient Total time spent providing and/or coordinating discharge services: - Constitutional Vitals: Temp Pulse Resp BP Pulse Ox 99.5 F 65 16 136/68 97 10/31/16 11:51 10/31/16 11:51 10/31/16 11:51 10/31/16 11:51 10/31/16 11:51 General appearance: Present: A&O X 3, pleasant, no acute distress, answers questions appropriately - Head Head exam: Present: atraumatic, normocephalic - Eye Eye exam: Present: PERRL, conjuntiva pink, sclera anicteric Pupils: Present: PERRL - Neck Neck exam general surgery: Present: supple, trachea midline. Absent: lymphadenopathy - Respiratory Respiratory exam: Present: decreased breath sounds. Absent: accessory muscle use, rales, respiratory distress, rhonchi, wheezes - Cardiovascular Cardiovascular exam: Present: RRR, +S1, +S2. Absent: diastolic murmur, gallop, rubs, systolic murmur - GI/Abdominal GI/Abdominal exam: Present: normal bowel sounds, soft, no peritoneal signs. Absent: distended, tenderness - Extremities Exam Extremities exam: Present: warm, radial pulses palpable and symmetrical. Absent : calf tenderness, cyanotic, pedal edema - Neurological Exam Neurological exam: Present: alert, CN II-XII intact, oriented X3, no focal deficits, strengths equal and symetr throughout. Absent: pronater drift, facial droop, speech deficit - Skin Skin exam: Present: dry, intact, pallor, warm - VTE Reasons for not Prescribing Prophylaxis: Not indicated-Anticoagulated or INR therapeutic
[2016-10-31] MEDS ORDERED: *HR* Glimepiride 2 MG TABLET PO SCH (18:00)
[2016-10-31] MEDS ORDERED: GLUCOSAMINE PO SCH (18:00)
== END 2016-10-31 15:45 ==
LOC: 3BNU 21:01 → EMEROO 21:01 → 3BNU 10-31 00:09
PROVIDERS: ADMIT Internal Medicine Hematology & Oncology; ATTEND Nurse Practitioner Family

== ENCOUNTER 2017-04-14 18:31 | Inpatient (IN) ==
--- NOTE | 2017-04-14 18:53 | Emergency Department Note ---
Disposition Clinical Impression: Shortness of breath Acute exacerbation of CHF (congestive heart failure) Qualifiers: Congestive heart failure type: unspecified Qualified Code(s): I50.9 - Heart failure, unspecified Disposition: Admitted As Inpatient Condition: Fair Forms: ED Satisfaction Letter Time of Disposition: 19:57 SOB HPI - General Chief Complaint: ED Shortness of Breath/Dyspnea Stated Complaint: erik x 7 days Time Seen by Provider: 04/14/17 18:41 Source: patient Nursing Notes Reviewed: Yes Vital Signs Reviewed: Yes - History of Present Illness 86-year-old female who complains of shortness of breath 7 days. Patient is a resident at [facility]. Patient states that she has been feeling more shortness of breath over the past several days but has no chest pain. Patient states she put oxygen on herself today because now she has severe orthopnea. Patient states she has to sit upright otherwise she feels short of breath. She denies history of COPD - Related Data Home Medications Medication Instructions Recorded Confirmed Calcium Carbonate/Vitamin D3 1 each PO DAILY 05/13/15 04/14/17 [Calcium 500-Vit D3 400 Tablet] Cholecalciferol (Vitamin D3) 1,000 unit PO DAILY 05/13/15 04/14/17 [Vitamin D3] Furosemide [Lasix] 40 mg PO QAM 05/13/15 04/14/17 Gabapentin [Neurontin] 300 mg PO BID 05/13/15 04/14/17 Glimepiride [Amaryl] 4 mg PO QAM 05/13/15 04/14/17 Glucosamine HCl/Chondr Mcghee A Na 1 each PO QPM 05/13/15 04/14/17 [Cvs Glucosamine-Chondr Caplet] Losartan [Cozaar] 50 mg PO BID 05/13/15 04/14/17 Magnesium Oxide [Magnesium] 400 mg PO QAM 05/13/15 04/14/17 Pravastatin Sodium [Pravachol] 40 mg PO QPM 05/13/15 04/14/17 Sotalol [Betapace] 80 mg PO BID 05/13/15 04/14/17 Aspirin 81 mg PO DAILY 09/02/16 04/14/17 Diltiazem HCl [Diltiazem 24Hr Cd] 180 mg PO BID 09/02/16 04/14/17 Glimepiride [Amaryl] 2 mg PO QPM 09/02/16 04/14/17 Potassium Chloride [Klor-Con 10] 10 meq PO DAILY 09/02/16 04/14/17 Guaifenesin [Mucinex] 1,200 mg PO BID 10/04/16 04/14/17 Insulin DETEMIR [Levemir] 26 unit SQ BID 01/03/17 04/14/17 Insulin LISPRO [Humalog] 6 unit SQ BIDWM 01/03/17 04/14/17 Loperamide [Imodium] 2 mg PO PER PKG DI PRN MDD 16 mg 01/03/17 04/14/17 Oxycodone HCl [Oxaydo] 5 mg PO Q4H PRN 01/03/17 04/14/17 Bisacodyl [Dulcolax] 10 mg RC DAILY PRN 04/13/17 04/14/17 Cefdinir [Omnicef] 300 mg PO BID 04/13/17 04/14/17 Docusate Sodium [Stool Softener] 100 mg PO DAILY PRN 04/13/17 04/14/17 Famotidine [Pepcid] 20 mg PO DAILY 04/13/17 04/14/17 Guaifenesin/Codeine Phosphate 10 ml PO Q6H PRN 04/13/17 04/14/17 [Guaifen-Codeine 100-10 mg/5 ml] Ipratropium/Albuterol Neb [Duoneb] 3 ml IH Q6HR 04/13/17 04/14/17 Ipratropium/Albuterol Neb [Duoneb] 3 ml IH Q6HR PRN 04/13/17 04/14/17 Diclofenac Sodium [Voltaren] 1 appl TP BID 04/14/17 04/14/17 GuaiFENesin/Dextromethorphan 5 ml PO QID PRN 04/14/17 04/14/17 [Tussin Dm Syrup] Guaifenesin [Mucinex] 600 mg PO BID PRN 04/14/17 04/14/17 Nystatin POWDER [Nystop] 1 appl TP BID 04/14/17 04/14/17 Oxygen 2 l NS HS 04/14/17 04/14/17 Previous Rx's Medication Instructions Recorded Apixaban [Eliquis] 5 mg PO BID tablet 09/05/16 Allergies Allergy/AdvReac Type Severity Reaction Status Date / Time naproxen [From Aleve] Allergy Mild Blister Verified 04/14/17 18:44 aspirin [ASA] Allergy See Verified 04/14/17 18:44 Comments ibuprofen AdvReac Mild Abdominal Verified 04/14/17 18:44 Pain metformin AdvReac See Verified 04/14/17 18:44 Comments All systems ED: reviewed and negative except as stated. Review of Systems: As Per HPI Constitutional: Denies: fever, chills, weakness Eyes: Denies: vision change ENT ED: Reports: congestion Cardiovascular: Denies: chest pain, palpitations Respiratory: Reports: cough, dyspnea. Denies: wheezes Gastrointestinal: Denies: abdominal pain, nausea, vomiting, diarrhea Genitourinary: Denies: urgency, dysuria Musculoskeletal: Denies: back pain, neck pain Integumentary: Denies: rash Neurological: Denies: headache Past Medical History - Past Medical History Attestation: Yes The following information was validated with the patient. Source: patient, nursing notes reviewed Medical history: Reports: atrial fibrillation, DVT, diabetes, GI bleed, hyperlipidemia, hypertension, renal disease, other Surgical history: Reports: appendectomy, cholecystectomy, herniorrhaphy, hysterectomy, orthopedic, other, pacemaker/AICD Psychiatric history: Reports: anxiety GROUP TESTER history: Reports: no GROUP TESTER history, other - Social History Smoking Status: Never smoker Smokeless Tobacco Status: No Alcohol use: Reports: none Drug use: Reports: none Physical Exam Vital Signs Temperature 97.9 F 04/14/17 18:39 Pulse Rate 77 04/14/17 18:39 Respiratory Rate 16 04/14/17 18:39 Blood Pressure 181/91 04/14/17 18:39 O2 Sat by Pulse Oximetry 98 04/14/17 18:39 Temperature 97.9 F 04/14/17 18:39 Pulse Rate 77 04/14/17 18:39 Respiratory Rate 16 04/14/17 18:39 Blood Pressure 181/91 04/14/17 18:39 O2 Sat by Pulse Oximetry 98 04/14/17 18:39 Oxygen Delivery Oxygen Delivery Nasal Cannula 86-year-old female. Patient is alert and oriented 3. Upon transfer from EMS, patient is laid flat but patient was insistent for us to hurry and place her back upright so she can breathe. - General General appearance: alert, in no apparent distress - Head Head exam: atraumatic, normocephalic, normal inspection - Eye Eye exam: Present: normal appearance, PERRL, EOMI - ENT ENT exam: normal exam, normal oropharynx, mucous membranes moist - Neck Neck exam: Present: normal inspection, full ROM, trachea midline - Chest Chest inspection: Present: normal inspection, symmetric chest wall rise. Absent : rash - Respiratory Respiratory exam: Present: other (Bibasilar rales). Absent: wheezes - Cardiovascular Cardiovascular exam: Present: regular rate, normal rhythm, normal heart sounds - Abdominal Exam Abdominal exam: Present: soft, Non-Tender. Absent: tenderness, distention, guarding, rebound, rigidity - Extremities Exam Extremities exam: Present: tenderness (Tenderness to palpation in left lower extremity along deep venous pathway). Absent: pedal edema Course - Reevaluation(s) Reevaluation #1: Patient states he is feeling In her breathing is tiresome. Ordered BiPAP Time: 19:07 Reevaluation #2: Patient's POA Sree Yin was patient's granddaughter states that the patient has been complaining of shortness of breath at the skilled nursing. 3 days ago she received a chest x-ray that was negative for pneumonia. Patient called her granddaughter today. She still short of breath and is feeling worse, so granddaughter told patient to go to the hospital Time: 19:38 Reevaluation #3: Review of workup: Patient's labs show clinically unremarkable for CHF exacerbation or any other problems at this time. D-dimer was negative as well. Patient's chest x-ray showed no acutely new abnormalities. Time: 19:54 - Consultations Consultation #1: Accepted for admission by hospitalist Dr. Quintanilla Time: 20:01 Vital Signs Temperature 97.9 F 04/14/17 18:39 Pulse Rate 77 04/14/17 18:39 Respiratory Rate 16 04/14/17 18:39 Blood Pressure 181/91 04/14/17 18:39 O2 Sat by Pulse Oximetry 98 04/14/17 18:39 Temperature 97.9 F 04/14/17 18:39 Pulse Rate 77 04/14/17 18:39 Respiratory Rate 16 04/14/17 18:39 Blood Pressure 181/91 04/14/17 18:39 O2 Sat by Pulse Oximetry 98 04/14/17 18:39 Oxygen Delivery Oxygen Delivery Nasal Cannula Shortness of Breath/Dyspnea - MDM Narrative Medical decision making narrative: Patient presents with shortness of breath concerning for possible CHF exacerbation. Patient has a history of PTSD and DVT but is on eloquis and symptoms have been getting gradually worse over the last 7 days. Patient is on have any chest pain. Current plan is to assess for CHF, also ACS. Patient is on BiPAP currently. Patient is breathing better while on BiPAP. Patient's lab workup was unremarkable for evidence of CHF exacerbation to include her chest x-ray but patient is clinically some signs of CHF. Patient has bibasilar crackles and severe orthopnea. Current plan is for patient to be started on small dose of Lasix 40 mg IV for diuresing. Patient will remain on BiPAP. I plan to admit this patient. Patient accepts this is an for admission. Patient is DNR CC, and still wants no resuscitation interventions performed. Dr. Quinatnilla hospitalists as accepted patient for admission 2000 hrs. - Lab Data Lab results reviewed: Yes I reviewed the patient's lab results. Lab results narrative: Short CBC 04/14/17 Range/Units 19:01 WBC 6.1 (4.3-11.1) K/mcL Hgb 9.5 L (11.5-15.4) g/dL Hct 32.3 L (35.3-44.9) % Plt Count 247 (140-400) K/mcL Neutrophils # 3.3 (1.6-8.9) K/mcL BMP 04/14/17 Range/Units 19:01 Sodium 135 L (136-145) mEq/L Potassium 4.1 (3.5-5.1) mEq/L Chloride 101 (98-107) mEq/L Carbon Dioxide 26 (23-29) mEq/L BUN 21 (8-23) mg/dL Creatinine 1.13 (0.60-1.20) mg/dL Glucose 133 H (70-105) mg/dL Calcium 8.9 (8.6-10.3) mg/dL Cardiac Enzymes 04/14/17 Range/Units 19:01 Troponin I < 0.03 (< 0.04) ng/mL Result diagrams: 04/14/17 19:01 04/14/17 19:01 Lab Results 04/14/17 04/14/17 04/14/17 Range/Units 19:01 19:01 19:01 WBC 6.1 (4.3-11.1) K/mcL RBC 3.86 (3.82-4.97) M/mcL Hgb 9.5 L (11.5-15.4) g/dL Hct 32.3 L (35.3-44.9) % MCV 83.7 (83.0-100.0) fL MCH 24.6 L (28.0-33.3) pg MCHC 29.4 L (31.6-35.5) g/dL RDW 15.1 H (11.5-14.5) % Plt Count 247 (140-400) K/mcL MPV 10.6 (9.4-12.4) fL Immature Gran % 0.3 (0-4) % Seg Neutrophils % 53.2 % Lymphocytes % 29.4 % Monocytes % 13.9 % Eosinophils % 2.5 % Basophils % 0.7 % Neutrophils # 3.3 (1.6-8.9) K/mcL Lymphocytes # 1.8 (0.6-4.6) K/mcL Monocytes # 0.9 (0.0-1.3) K/mcL Eosinophils # 0.2 (0.0-0.6) K/mcL Basophils # 0.0 (0.0-0.2) K/mcL D-Dimer (0-500) ng/mLFEU Sodium 135 L (136-145) mEq/L Potassium 4.1 (3.5-5.1) mEq/L Chloride 101 (98-107) mEq/L Carbon Dioxide 26 (23-29) mEq/L BUN 21 (8-23) mg/dL Creatinine 1.13 (0.60-1.20) mg/dL Est GFR ( Amer) 56 L (> 60) Est GFR (Non-Af Amer) 46 L (> 60) BUN/Creatinine Ratio 19 (6-26) Glucose 133 H (70-105) mg/dL Calculated Osmolality 285 (280-300) Calcium 8.9 (8.6-10.3) mg/dL Troponin I < 0.03 (< 0.04) ng/mL B-Natriuretic Peptide (Less than 100) pg/mL 04/14/17 04/14/17 Range/Units 19:01 19:01 WBC (4.3-11.1) K/mcL RBC (3.82-4.97) M/mcL Hgb (11.5-15.4) g/dL Hct (35.3-44.9) % MCV (83.0-100.0) fL MCH (28.0-33.3) pg MCHC (31.6-35.5) g/dL RDW (11.5-14.5) % Plt Count (140-400) K/mcL MPV (9.4-12.4) fL Immature Gran % (0-4) % Seg Neutrophils % % Lymphocytes % % Monocytes % % Eosinophils % % Basophils % % Neutrophils # (1.6-8.9) K/mcL Lymphocytes # (0.6-4.6) K/mcL Monocytes # (0.0-1.3) K/mcL Eosinophils # (0.0-0.6) K/mcL Basophils # (0.0-0.2) K/mcL D-Dimer 396 (0-500) ng/mLFEU Sodium (136-145) mEq/L Potassium (3.5-5.1) mEq/L Chloride (98-107) mEq/L Carbon Dioxide (23-29) mEq/L BUN (8-23) mg/dL Creatinine (0.60-1.20) mg/dL Est GFR ( Amer) (> 60) Est GFR (Non-Af Amer) (> 60) BUN/Creatinine Ratio (6-26) Glucose (70-105) mg/dL Calculated Osmolality (280-300) Calcium (8.6-10.3) mg/dL Troponin I (< 0.04) ng/mL B-Natriuretic Peptide 64 (Less than 100) pg/mL - Radiology Data Radiology results reviewed: Yes I reviewed the patient's radiology results. Chest X-Ray 04/14/17 18:53 IMPRESSION: No acute findings D/ / Anali Guan MD / Anali Guan MD Interpreting Provider: Anali Guan MD - EKG Data EKG attestation: Yes I reviewed and interpreted this EKG. EKG results narrative: EKG taken 04/14/2017 at 2004 hrs. shows a paced rhythm at 81 beats minute with no acute signs of ischemia.
--- NOTE | 2017-04-14 18:58 | Emergency Department Note ---
START Narrative - START START: I examined this patient and my medical decision-making was reviewed with the Resident Physician, Fabricio Matthews. I agree with the documented findings, disposition and treatment plan as described except to the extent set forth below. I have personally performed a face to face evaluation on this patient. I have reviewed and agree with the care plan. Briefly: A 86-year-old with history of distant PE DVT on this for that. By EMS from [facility] facility for 1 week increasing dyspnea on exertion and shortness of breath even at rest. Patient normally walks 50 feet a day but they have not done so for the past day or so due to weakness. Denies cough sputum or fever. Patient has bibasilar crackles. Patient will undergo ED workup with screening labs and chest x-ray EKG and troponin. Patient placed on supple oxygen. Providing 30 minutes critical care services to this patient. Disposition pending.
[2017-04-14 19:10] LABS: Basophils % 0.7 %; Eosinophils # 0.2 K/mcL (0.0-0.6); Eosinophils % 2.5 %; Hematocrit 32.3 % (35.3-44.9); Hemoglobin 9.5 g/dL (11.5-15.4); Immature Granulocytes % 0.3 % (0-4); Lymphocytes # 1.8 K/mcL (0.6-4.6); Lymphocytes % 29.4 %; Mean Corpuscular HGB Conc 29.4 g/dL (31.6-35.5); Mean Corpuscular Hemoglobin 24.6 pg (28.0-33.3); Mean Corpuscular Volume 83.7 fL (83.0-100.0); Mean Platelet Volume 10.6 fL (9.4-12.4); Monocytes # 0.9 K/mcL (0.0-1.3); Monocytes % 13.9 %; Neutrophils # 3.3 K/mcL (1.6-8.9); Platelet Count 247 K/mcL (140-400); Red Blood Count 3.86 M/mcL (3.82-4.97); Red Cell Distribution Width 15.1 % (11.5-14.5); Segmented Neutrophils % 53.2 %
[2017-04-14 19:16] LABS: Calcium 8.9 mg/dL (8.6-10.3); Potassium 4.1 mEq/L (3.5-5.1)
[2017-04-14] MEDS ORDERED: Furosemide 40 MG/4 ML VIAL IVP ONE (19:45)
[2017-04-14] MEDS ORDERED: Bisacodyl 10 MG RECTAL SUPPOSITORY RC PRN (20:20)
[2017-04-14] MEDS ORDERED: Naloxone 0.4 MG/ML INJ IVP PRN (20:23)
[2017-04-14] MEDS ORDERED: *HR* Dextrose 50 % in Water (Syg) 50 ML SYRINGE IVP PRN (20:25)
[2017-04-14] MEDS ORDERED: D5% in Water 1,000 ML IVC PRN (20:25)
[2017-04-14] MEDS ORDERED: Dextrose Gel 15 GM/37.5 ML TUBE PO PRN ×2 (20:25)
[2017-04-14] MEDS ORDERED: Ipratropium/Albuterol Neb 3 ML IH PRN (20:26)
--- NOTE | 2017-04-14 20:29 | Internal Med History&Physical ---
Date of Encounter: 04/14/17 Time of Encounter: 20:29 Assessment and Plan (1) Acute respiratory failure with hypoxemia Current visit: No Status: Acute uncertain etiology Hx of orthopnea but CXR and BNP wnl Send RVP Empirically treat for acute bronchitis BIPAP Another dose of lasix in the a.m pulse ox, monitor closely for improvement *she is on eliquis (hx of PE and Afib as noted in chart) and low D-dimer , effectively ruling out PE (2) Diabetes mellitus Current visit: No Status: Chronic Insulin, ISS Qualifiers: Diabetes mellitus type: type 2 Diabetes mellitus complication status: with neurologic complications Diabetes mellitus complication detail: with unspecified neuropathy Diabetes mellitus mcfp insulin use: with mcfp use Qualified Code(s): E11.40 - Type 2 diabetes mellitus with diabetic neuropathy, unspecified; Z79.4 - retirement (current) use of insulin (3) Diarrhea Current visit: Yes Status: Acute had lizeth-umbilical discomfort and diarrhea today. Was on antibiotics Monitor for now and if recurrent diarrhea, will need to send C.diff Qualifiers: Diarrhea type: unspecified type Qualified Code(s): R19.7 - Diarrhea, unspecified (4) Arrhythmia Current visit: Yes Status: Acute has v-pacer, on sotalol, trend labs, tele Qualifiers: Arrhythmia type: other cardiac arrhythmia Qualified Code(s): I49.8 - Other specified cardiac arrhythmias Internal Medicine - H&P: HPI Chief complaint: SOB History of present illness: Ms. De León is a 86 year old female who presents with SOB. She lives in a SNF and has been treated in the SNF for 7 days of SOB, orthopnea , difficulty lying flat in bed and has to sit up to feel better. Some non- specific LE swelling. CXR in the SNF was w/o PNA and she received empirice cefedinir, cough med, breathing treatment to little improvement. She feels better in the ED on BIPAP. On review, she notes of some lizeth-umbilical tenderness and diarrhea stool once this afternoon. DNRCC per paper work from SNF. But discussed with grand dtr who is POA - she is not in hospice and wishes to continue medical therapy in hopes of improvement. This is more consistent wit DNRCCA/DNI EKG personally reviewed with rate 81 V-paced XR/XR chest 2V IMPRESSION: No acute findings Past Med Surg Social Fam HX - Past Medical History Medical history: atrial fibrillation, DVT, diabetes, GI bleed, hyperlipidemia, hypertension, renal disease, other Psychiatric history: anxiety - Past Surgical History Surgical History: appendectomy, cholecystectomy, herniorrhaphy, hysterectomy, orthopedic, other, pacemaker/AICD - Social History Smoking Status: Never smoker Smokeless Tobacco Status: No Alcohol use: none Drug use: none - Family History Father Living Status: Mother Living Status: Internal Medicine - H&P: Meds Calcium Carbonate/Vitamin D3 [Calcium 500-Vit D3 400 Tablet] 1 each PO DAILY [History] Cholecalciferol (Vitamin D3) [Vitamin D3] 1,000 unit PO DAILY 05/13/15 [History] Furosemide [Lasix] 40 mg PO QAM 05/13/15 [History] Gabapentin [Neurontin] 300 mg PO BID 05/13/15 [History] Glimepiride [Amaryl] 4 mg PO QAM 05/13/15 [History] Glucosamine HCl/Chondr Mcghee A Na [Cvs Glucosamine-Chondr Caplet] 1 each PO QPM [History] Losartan [Cozaar] 50 mg PO BID 05/13/15 [History] Magnesium Oxide [Magnesium] 400 mg PO QAM 05/13/15 [History] Pravastatin Sodium [Pravachol] 40 mg PO QPM 05/13/15 [History] Sotalol [Betapace] 80 mg PO BID 05/13/15 [History] Aspirin 81 mg PO DAILY 09/02/16 [History] Diltiazem HCl [Diltiazem 24Hr Cd] 180 mg PO BID 09/02/16 [History] Glimepiride [Amaryl] 2 mg PO QPM 09/02/16 [History] Potassium Chloride [Klor-Con 10] 10 meq PO DAILY 09/02/16 [History] Apixaban [Eliquis] 5 mg PO BID tablet 09/05/16 [Rx] Guaifenesin [Mucinex] 1,200 mg PO BID 10/04/16 [History] Insulin DETEMIR [Levemir] 26 unit SQ BID 01/03/17 [History] Insulin LISPRO [Humalog] 6 unit SQ BIDWM 01/03/17 [History] Loperamide [Imodium] 2 mg PO PER PKG DI PRN MDD 16 mg 01/03/17 [History] Oxycodone HCl [Oxaydo] 5 mg PO Q4H PRN 01/03/17 [History] Bisacodyl [Dulcolax] 10 mg RC DAILY PRN 04/13/17 [History] Cefdinir [Omnicef] 300 mg PO BID 04/13/17 [History] Docusate Sodium [Stool Softener] 100 mg PO DAILY PRN 04/13/17 [History] Famotidine [Pepcid] 20 mg PO DAILY 04/13/17 [History] Guaifenesin/Codeine Phosphate [Guaifen-Codeine 100-10 mg/5 ml] 10 ml PO Q6H PRN 04/13/17 [History] Ipratropium/Albuterol Neb [Duoneb] 3 ml IH Q6HR 04/13/17 [History] Ipratropium/Albuterol Neb [Duoneb] 3 ml IH Q6HR PRN 04/13/17 [History] Diclofenac Sodium [Voltaren] 1 appl TP BID 04/14/17 [History] GuaiFENesin/Dextromethorphan [Tussin Dm Syrup] 5 ml PO QID PRN 04/14/17 [History ] Guaifenesin [Mucinex] 600 mg PO BID PRN 04/14/17 [History] Nystatin POWDER [Nystop] 1 appl TP BID 04/14/17 [History] Oxygen 2 l NS HS 04/14/17 [History] 3 Allergy/AdvReac Type Severity Reaction Status Date / Time naproxen [From Aleve] Allergy Mild Blister Verified 04/14/17 18:44 aspirin [ASA] Allergy See Verified 04/14/17 18:44 Comments ibuprofen AdvReac Mild Abdominal Verified 04/14/17 18:44 Pain metformin AdvReac See Verified 04/14/17 18:44 Comments All Systems PM: A 10-system review of systems was performed and is negative for pertinent findings except as documented above in the HPI. Review of systems: General - AAO x 3 Psych - Appropriate affect/speech. No agitation Eyes - ZARA. Eye lids intact. No scleral icterus Heart - Sinus. RRR. S1 and S2 present. No added HS/murmurs appreciated. No elevated JVD appreciated. Lung - Adequate air entry b/l on BIPAP, No crackles/wheezes appreciated GI - Soft, No G/R No hepatosplenomegaly/ascites. BS+ - No CVA/suprapubic tenderness or palpable bladder distension Skin - Intact. No rash/petechiae/ecchymosis. Warm extremities. +1 b/l LE edema - Constitutional Vitals: Temp Pulse Resp BP Pulse Ox 97.9 F 77 16 181/91 98 04/14/17 18:39 04/14/17 18:39 04/14/17 18:39 04/14/17 18:39 04/14/17 18:39 Internal Med - H&P Results - Labs CBC & Chem 7: 04/14/17 19:01 04/14/17 19:01 Labs: Short CBC 04/14/17 Range/Units 19:01 WBC 6.1 (4.3-11.1) K/mcL Hgb 9.5 L (11.5-15.4) g/dL Hct 32.3 L (35.3-44.9) % Plt Count 247 (140-400) K/mcL Neutrophils # 3.3 (1.6-8.9) K/mcL BMP 04/14/17 19:01 Sodium 135 L Potassium 4.1 Chloride 101 Carbon Dioxide 26 BUN 21 Creatinine 1.13 Glucose 133 H Calcium 8.9 Cardiac Enzymes 04/14/17 Range/Units 19:01 Troponin I < 0.03 (< 0.04) ng/mL - Impressions ITS Impressions Chest X-Ray 04/14/17 18:53 IMPRESSION: No acute findings D/ / Anali Guan MD / Anali Guan MD Interpreting Provider: Anali Guan MD
[2017-04-14] MEDS ORDERED: Insulin DETEMIR 100 UNIT/ML X5UNITS SQ SCH (21:00)
[2017-04-14] MEDS ORDERED: INSULIN DETEMIR 26 UNIT SQ SCH (21:00)
[2017-04-14] MEDS: Diltiazem CD (24hr) 180 MG CAPSULE PO SCH (23:16)
[2017-04-14] MEDS: Apixaban 5 MG TABLET PO SCH (23:17)
[2017-04-14] MEDS: Insulin LISPRO 300 UNITS/3 ML VIAL SQ SCH (23:18)
[2017-04-14] MEDS: Gabapentin 300 MG CAPSULE PO SCH (23:18)
[2017-04-14] MEDS: MethylPREDNISolone 40 MG/ML VIAL IVP SCH (23:21)
[2017-04-14] MEDS: Insulin DETEMIR 100 UNIT/ML X5UNITS SQ SCH (23:24)
[2017-04-14] MEDS: *HR* OxyCODONE Immed Rel 5 MG TABLET PO PRN (23:30)
[2017-04-14] MEDS: Ipratropium/Albuterol Neb 3 ML IH SCH (23:51)
[2017-04-15 00:06] LABS: Adenovirus Not Detected (Not Detect); Bordetella Pertussis Not Detected (Not Detect); Chlamydophila pneumoniae Not Detected (Not Detect); Coronavirus 229E Not Detected (Not Detect); Coronavirus HKU1 Not Detected (Not Detect); Coronavirus NL63 Not Detected (Not Detect); Coronavirus OC43 Not Detected (Not Detect); Human Metapneumovirus Not Detected (Not Detect); Human Rhinovirus/Enterovirus Not Detected (Not Detect); Influenza A Subtype 2009 H1 Not Detected (Not Detect); Influenza A Untypeable Not Detected (Not Detect); Influenza B Not Detected (Not Detect); Mycoplasma pneumoniae Not Detected (Not Detect); Parainfluenza Virus 1 Not Detected (Not Detect); Parainfluenza Virus 2 Not Detected (Not Detect); Parainfluenza Virus 3 Not Detected (Not Detect); Parainfluenza Virus 4 Not Detected (Not Detect); Respiratory Syncytial Virus Not Detected (Not Detect)
[2017-04-15] MEDS: Nystatin POWDER 30 GM BOTTLE TP SCH ×3 (01:30→21:38)
[2017-04-15] MEDS: Ipratropium/Albuterol Neb 3 ML IH SCH ×4 (04:39→23:14)
[2017-04-15] MEDS: Pantoprazole 40 MG VIAL IVP SCH (05:26)
[2017-04-15 05:48] LABS: Basophils % 0.6 %; Hematocrit 31.7 % (35.3-44.9); Hemoglobin 9.5 g/dL (11.5-15.4); Immature Granulocytes % 0.2 % (0-4); Lymphocytes % 21.2 %; Mean Corpuscular Hemoglobin 25.1 pg (28.0-33.3); Mean Corpuscular Volume 83.6 fL (83.0-100.0); Mean Platelet Volume 11.4 fL (9.4-12.4); Monocytes # 0.2 K/mcL (0.0-1.3); Monocytes % 3.9 %; Neutrophils # 3.6 K/mcL (1.6-8.9); Platelet Count 245 K/mcL (140-400); Red Blood Count 3.79 M/mcL (3.82-4.97); Red Cell Distribution Width 14.9 % (11.5-14.5); Segmented Neutrophils % 74.1 %
[2017-04-15 05:51] LABS: Calcium 8.8 mg/dL (8.6-10.3); Potassium 4.4 mEq/L (3.5-5.1)
[2017-04-15] MEDS: Gabapentin 300 MG CAPSULE PO SCH ×2 (08:34→21:33)
[2017-04-15] MEDS: Famotidine 20 MG TABLET PO SCH (08:34)
[2017-04-15] MEDS: Diltiazem CD (24hr) 180 MG CAPSULE PO SCH ×2 (08:34→21:34)
[2017-04-15] MEDS: Cholecalciferol (D-3) 1,000 UNIT TABLET PO SCH (08:34)
[2017-04-15] MEDS: Aspirin 81 MG TAB.CHEW PO SCH (08:34)
[2017-04-15] MEDS: Magnesium Oxide 400 MG TABLET PO SCH (08:34)
[2017-04-15] MEDS: Apixaban 5 MG TABLET PO SCH ×2 (08:34→21:35)
[2017-04-15] MEDS: MethylPREDNISolone 40 MG/ML VIAL IVP SCH ×2 (08:35→21:44)
[2017-04-15] MEDS: Insulin LISPRO 300 UNITS/3 ML VIAL SQ SCH ×4 (08:35→21:42)
[2017-04-15] MEDS: Insulin DETEMIR 100 UNIT/ML X5UNITS SQ SCH ×2 (09:00→21:36)
[2017-04-15] MEDS ORDERED: [Calcium 500-Vit D3 PO SCH (09:00)
[2017-04-15] MEDS ORDERED: Furosemide 40 MG/4 ML VIAL IVP ONE (09:00)
--- NOTE | 2017-04-15 20:16 | Internal Med Progress Note ---
Date of Encounter: 04/15/17 Time of Encounter: 10:45 - Assessment and plan (1) Acute respiratory failure with hypoxemia Current Visit: No Status: Acute Assessment and plan: presented with orthopnea. CXR and BNP normal. Resp PCR negative. On eliquis ( hx of PE and Afib as noted in chart) low D-dimer; effectively ruling out PE. Etiology unknown at this time. Adequately oxygenating on NC. No distress apparent. Cont to monitor. Cont pulseox. BiPAP PRN. Check echo (2) CKD (chronic kidney disease) stage 3, GFR 30-59 ml/min Current Visit: No Status: Chronic Assessment and plan: per hx. Renal function stable (3) Diabetes mellitus, type 2 Current Visit: No Status: Chronic Assessment and plan: per hx. Blood sugars elevated d/t steroids. Cont long acting and ISS. Monitor blood sugar and titrate PRN Qualifiers: Diabetes mellitus complication status: without complication Diabetes mellitus long term care phlebotomist insulin use: with fci use Qualified Code(s): E11.9 - Type 2 diabetes mellitus without complications; Z79.4 - FDC (current) use of insulin (4) DVT prophylaxis Current Visit: No Status: Acute Assessment and plan: eliquis - Subjective Interval history: Seen and examined at bedside, patient is new to me. Information obtained from chart review and patient report. Still SOB but significantly improved. No cough , no fevers, no CP - Constitutional Vitals: Temp Pulse Resp BP Pulse Ox 97.6 F 73 16 157/68 96 04/15/17 15:23 04/15/17 15:23 04/15/17 17:02 04/15/17 15:23 04/15/17 17:02 General appearance: Present: A&O X 3, no acute distress - Head Head exam: Present: atraumatic, normocephalic - Eye Eye exam: Present: PERRL, conjuntiva pink, sclera anicteric Pupils: Present: PERRL - Neck Neck exam general surgery: Present: supple, trachea midline. Absent: lymphadenopathy - Respiratory Respiratory exam: Present: CTAB. Absent: accessory muscle use, rales, rhonchi, wheezes - Cardiovascular Cardiovascular exam: Present: RRR, +S1, +S2. Absent: diastolic murmur, gallop, rubs, systolic murmur - GI/Abdominal GI/Abdominal exam: Present: normal bowel sounds, soft, no peritoneal signs. Absent: distended, tenderness - Extremities Exam Extremities exam: Present: warm, radial pulses palpable and symmetrical. Absent : calf tenderness, cyanotic, pedal edema - Neurological Exam Neurological exam: Present: CN II-XII intact, oriented X3, no focal deficits. Absent: pronater drift, facial droop, speech deficit - Skin Skin exam: Present: dry, intact Internal Medicine: Result - Labs CBC & Chem 7: 04/15/17 05:12 04/15/17 05:12 Labs: Short CBC 04/15/17 Range/Units 05:12 WBC 4.9 (4.3-11.1) K/mcL Hgb 9.5 L (11.5-15.4) g/dL Hct 31.7 L (35.3-44.9) % Plt Count 245 (140-400) K/mcL Neutrophils # 3.6 (1.6-8.9) K/mcL BMP 04/15/17 05:12 Sodium 134 L Potassium 4.4 Chloride 101 Carbon Dioxide 26 BUN 22 Creatinine 1.19 Glucose 251 H Calcium 8.8 - ABG Interpretation ABG results: PT/INR, D-dimer D-Dimer 396 ng/mLFEU (0-500) 04/14/17 19:01 Consult Discharge Plan - Plan Referrals: Arjun Lizama MD [Primary Care Provider] -
[2017-04-15] MEDS: *HR* OxyCODONE Immed Rel 5 MG TABLET PO PRN (21:33)
[2017-04-16] MEDS: Ipratropium/Albuterol Neb 3 ML IH SCH ×4 (04:37→22:17)
[2017-04-16 05:48] LABS: Hematocrit 31.7 % (35.3-44.9); Hemoglobin 9.4 g/dL (11.5-15.4); Mean Corpuscular HGB Conc 29.7 g/dL (31.6-35.5); Mean Corpuscular Hemoglobin 24.5 pg (28.0-33.3); Mean Corpuscular Volume 82.8 fL (83.0-100.0); Mean Platelet Volume 11.3 fL (9.4-12.4); Platelet Count 257 K/mcL (140-400); Red Blood Count 3.83 M/mcL (3.82-4.97); Red Cell Distribution Width 14.7 % (11.5-14.5)
[2017-04-16] MEDS: Pantoprazole 40 MG VIAL IVP SCH (06:00)
[2017-04-16 06:11] LABS: Calcium 8.7 mg/dL (8.6-10.3); Potassium 4.4 mEq/L (3.5-5.1)
[2017-04-16] MEDS: Insulin DETEMIR 100 UNIT/ML X5UNITS SQ SCH ×2 (08:45→20:08)
[2017-04-16] MEDS: Insulin LISPRO 300 UNITS/3 ML VIAL SQ SCH ×4 (08:45→21:02)
[2017-04-16] MEDS: Nystatin POWDER 30 GM BOTTLE TP SCH ×2 (08:45→21:02)
[2017-04-16] MEDS: MethylPREDNISolone 40 MG/ML VIAL IVP SCH (08:45)
[2017-04-16] MEDS: Gabapentin 300 MG CAPSULE PO SCH ×2 (08:46→20:07)
[2017-04-16] MEDS: Apixaban 5 MG TABLET PO SCH ×2 (08:46→20:06)
[2017-04-16] MEDS: Magnesium Oxide 400 MG TABLET PO SCH (08:46)
[2017-04-16] MEDS: Diltiazem CD (24hr) 180 MG CAPSULE PO SCH ×2 (08:46→20:07)
[2017-04-16] MEDS: Aspirin 81 MG TAB.CHEW PO SCH (08:46)
[2017-04-16] MEDS: Famotidine 20 MG TABLET PO SCH (08:46)
[2017-04-16] MEDS: Cholecalciferol (D-3) 1,000 UNIT TABLET PO SCH (08:46)
--- NOTE | 2017-04-16 10:13 | Electrocardiograph Report ---
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
[2017-04-16] MEDS ORDERED: Insulin LISPRO 300 UNITS/3 ML VIAL SQ ONE (14:11)
--- NOTE | 2017-04-16 17:52 | Internal Med Progress Note ---
Date of Encounter: 04/16/17 Time of Encounter: 09:30 - Assessment and plan (1) Acute respiratory failure with hypoxemia Current Visit: No Status: Acute Assessment and plan: presented with orthopnea. CXR and BNP normal. Resp PCR negative. On eliquis ( hx of PE and Afib as noted in chart) low D-dimer; effectively ruling out PE. Etiology unknown at this time. Adequately oxygenating on NC. No distress apparent. Cont to monitor. Cont pulseox. BiPAP PRN. Wean O2 as able. Echo, chest CT pending (2) CKD (chronic kidney disease) stage 3, GFR 30-59 ml/min Current Visit: No Status: Chronic Assessment and plan: per hx. Renal function stable (3) Diabetes mellitus, type 2 Current Visit: No Status: Chronic Assessment and plan: per hx. Blood sugars elevated d/t steroids. Steroids stopped. Cont long acting and ISS. 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 Has PPM. Cont sotalol Qualifiers: Arrhythmia type: other cardiac arrhythmia Qualified Code(s): I49.8 - Other specified cardiac arrhythmias (5) Atrial fibrillation Current Visit: No Status: Chronic Assessment and plan: per hx. Rate controlled. Cont eliquis Qualifiers: Atrial fibrillation type: paroxysmal Qualified Code(s): I48.0 - Paroxysmal atrial fibrillation (6) DVT prophylaxis Current Visit: No Status: Acute Assessment and plan: eliquis - Subjective Interval history: Seen and examined at bedside; still with a little shortness of breath that is worse with laying flat but overall improved. No chest pain. Says she slept well and had an uneventful night. - Constitutional Vitals: Temp Pulse Resp BP Pulse Ox 97.8 F 64 16 147/70 93 04/16/17 15:38 04/16/17 15:38 04/16/17 16:09 04/16/17 15:38 04/16/17 16:09 General appearance: Present: A&O X 3, no acute distress - Head Head exam: Present: atraumatic, normocephalic - Eye Eye exam: Present: PERRL, conjuntiva pink, sclera anicteric Pupils: Present: PERRL - Neck Neck exam general surgery: Present: supple, trachea midline. Absent: lymphadenopathy - Respiratory Respiratory exam: Present: CTAB. Absent: accessory muscle use, rales, rhonchi, wheezes - Cardiovascular Cardiovascular exam: Present: RRR, +S1, +S2. Absent: diastolic murmur, gallop, rubs, systolic murmur - GI/Abdominal GI/Abdominal exam: Present: normal bowel sounds, soft, no peritoneal signs. Absent: distended, tenderness - Extremities Exam Extremities exam: Present: warm, radial pulses palpable and symmetrical. Absent : calf tenderness, cyanotic, pedal edema - Neurological Exam Neurological exam: Present: CN II-XII intact, oriented X3, no focal deficits. Absent: pronater drift, facial droop, speech deficit - Skin Skin exam: Present: dry, intact Internal Medicine: Result - Labs CBC & Chem 7: 04/16/17 05:18 04/16/17 05:18 Labs: Short CBC 04/16/17 Range/Units 05:18 WBC 8.9 D (4.3-11.1) K/mcL Hgb 9.4 L (11.5-15.4) g/dL Hct 31.7 L (35.3-44.9) % Plt Count 257 (140-400) K/mcL BMP 04/16/17 05:18 Sodium 133 L Potassium 4.4 Chloride 100 Carbon Dioxide 27 BUN 29 H Creatinine 1.18 Glucose 350 H Calcium 8.7 - ABG Interpretation ABG results: PT/INR, D-dimer D-Dimer 396 ng/mLFEU (0-500) 04/14/17 19:01 Consult Discharge Plan - Plan Referrals: Arjun Lizama MD [Primary Care Provider] -
[2017-04-16] MEDS: *HR* OxyCODONE Immed Rel 5 MG TABLET PO PRN (20:07)
[2017-04-17] MEDS: Ipratropium/Albuterol Neb 3 ML IH SCH ×6 (04:25→23:46)
[2017-04-17] MEDS: Pantoprazole 40 MG VIAL IVP SCH (05:26)
[2017-04-17] MEDS: Insulin LISPRO 300 UNITS/3 ML VIAL SQ SCH ×5 (08:24→20:44)
[2017-04-17] MEDS: Magnesium Oxide 400 MG TABLET PO SCH (08:24)
[2017-04-17] MEDS: Gabapentin 300 MG CAPSULE PO SCH ×2 (08:24→20:42)
[2017-04-17] MEDS: Diltiazem CD (24hr) 180 MG CAPSULE PO SCH ×2 (08:24→20:42)
[2017-04-17] MEDS: Insulin DETEMIR 100 UNIT/ML X5UNITS SQ SCH ×2 (08:24→20:46)
[2017-04-17] MEDS: Apixaban 5 MG TABLET PO SCH ×2 (08:24→20:42)
[2017-04-17] MEDS: Cholecalciferol (D-3) 1,000 UNIT TABLET PO SCH (08:24)
[2017-04-17] MEDS: Famotidine 20 MG TABLET PO SCH (08:24)
[2017-04-17] MEDS: Aspirin 81 MG TAB.CHEW PO SCH (08:24)
[2017-04-17] MEDS: Nystatin POWDER 30 GM BOTTLE TP SCH ×2 (08:25→20:47)
[2017-04-17] MEDS: cefTRIAXone 1,000 MG in Water for inj. (sterile) 20 ML 10 ML IVPB SCH (17:20)
[2017-04-17] MEDS: Azithromycin 500 MG in D5% in Water 250 ML IVPB SCH (17:20)
[2017-04-17] MEDS: *HR* OxyCODONE Immed Rel 5 MG TABLET PO PRN (17:21)
--- NOTE | 2017-04-17 17:57 | Internal Med Progress Note ---
Date of Encounter: 04/18/17 Time of Encounter: 13:45 - Assessment and plan (1) Acute respiratory failure with hypoxemia Current Visit: No Status: Acute Assessment and plan: presented with orthopnea. CXR and BNP normal. Resp PCR negative. On eliquis ( hx of PE and Afib as noted in chart) low D-dimer; effectively ruling out PE. Etiology unknown at this time. Adequately oxygenating on NC. No distress apparent. Cont to monitor. Cont pulseox. BiPAP PRN. Wean O2 as able. Chest CT with known AAA, otherwise non-acute. Echo pending. Clinically appears to be acute bronchitis with shortness of breath, cough. Start Levaquin. No wheezing , hold on steroids especially with increased blood sugars as noted below. (2) CKD (chronic kidney disease) stage 3, GFR 30-59 ml/min Current Visit: No Status: Chronic Assessment and plan: per hx. Renal function stable (3) Diabetes mellitus, type 2 Current Visit: No Status: Chronic Assessment and plan: per hx. Blood sugars elevated d/t steroids. Steroids stopped. Cont long acting and ISS. Monitor blood sugar and titrate PRN. 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 Rate controlled. Cont eliquis Qualifiers: Atrial fibrillation type: paroxysmal Qualified Code(s): I48.0 - Paroxysmal atrial fibrillation (5) DVT prophylaxis Current Visit: No Status: Acute Assessment and plan: per hx. Has PPM. Cont sotalol, eliquis - Subjective Interval history: Seen and examined at bedside; still with a little shortness of breath that is worse with laying flat but overall improved. No chest pain. Says she slept well and had an uneventful night. - Constitutional Vitals: Temp Pulse Resp BP Pulse Ox 97.6 F 60 18 163/77 99 04/17/17 15:18 04/17/17 15:18 04/17/17 15:18 04/17/17 15:18 04/17/17 15:18 General appearance: Present: A&O X 3, no acute distress - Head Head exam: Present: atraumatic, normocephalic - Eye Eye exam: Present: PERRL, conjuntiva pink, sclera anicteric Pupils: Present: PERRL - Neck Neck exam general surgery: Present: supple, trachea midline. Absent: lymphadenopathy - Respiratory Respiratory exam: Present: CTAB. Absent: accessory muscle use, rales, rhonchi, wheezes - Cardiovascular Cardiovascular exam: Present: RRR, +S1, +S2. Absent: diastolic murmur, gallop, rubs, systolic murmur - GI/Abdominal GI/Abdominal exam: Present: normal bowel sounds, soft, no peritoneal signs. Absent: distended, tenderness - Extremities Exam Extremities exam: Present: warm, radial pulses palpable and symmetrical. Absent : calf tenderness, cyanotic, pedal edema - Neurological Exam Neurological exam: Present: CN II-XII intact, oriented X3, no focal deficits. Absent: pronater drift, facial droop, speech deficit - Skin Skin exam: Present: dry, intact Internal Medicine: Result - Labs CBC & Chem 7: 04/16/17 05:18 04/16/17 05:18 - ABG Interpretation ABG results: PT/INR, D-dimer D-Dimer 396 ng/mLFEU (0-500) 04/14/17 19:01 - Impressions Impressions Chest CT 04/16/17 17:54 IMPRESSION: 1. No acute intrathoracic process. 2. Aneurysmal dilatation of the descending thoracic aorta which is slightly increased in size compared with prior exam today measuring 4.7 x 4.8 cm. 3. Small nodules identified within the bilateral breasts likely reflecting intramammary lymph nodes. These appear stable in size compared with prior exam from 2016. Recommend correlation with mammography. D/ / Mp Acevedo MD / Mp Acevedo MD Interpreting Provider: Mp Acevedo MD Consult Discharge Plan - Plan Referrals: Arjun Lizama MD [Primary Care Provider] -
[2017-04-18] MEDS: Ipratropium/Albuterol Neb 3 ML IH SCH ×6 (00:01→20:42)
[2017-04-18] MEDS: Pantoprazole 40 MG VIAL IVP SCH (05:19)
[2017-04-18] MEDS: Insulin LISPRO 300 UNITS/3 ML VIAL SQ SCH ×4 (08:21→21:18)
[2017-04-18] MEDS: Insulin DETEMIR 100 UNIT/ML X5UNITS SQ SCH ×2 (10:28→21:33)
[2017-04-18] MEDS: Gabapentin 300 MG CAPSULE PO SCH ×2 (10:28→21:18)
[2017-04-18] MEDS: Magnesium Oxide 400 MG TABLET PO SCH (10:29)
[2017-04-18] MEDS: Cholecalciferol (D-3) 1,000 UNIT TABLET PO SCH (10:29)
[2017-04-18] MEDS: cefTRIAXone 1,000 MG in Water for inj. (sterile) 20 ML 10 ML IVPB SCH (10:29)
[2017-04-18] MEDS: Diltiazem CD (24hr) 180 MG CAPSULE PO SCH ×2 (10:29→21:18)
[2017-04-18] MEDS: Aspirin 81 MG TAB.CHEW PO SCH (10:29)
[2017-04-18] MEDS: Famotidine 20 MG TABLET PO SCH (10:29)
[2017-04-18] MEDS: Apixaban 5 MG TABLET PO SCH ×2 (10:29→21:18)
[2017-04-18] MEDS: Nystatin POWDER 30 GM BOTTLE TP SCH ×2 (10:30→22:54)
[2017-04-18] MEDS: *HR* OxyCODONE Immed Rel 5 MG TABLET PO PRN ×2 (10:41→20:37)
--- NOTE | 2017-04-18 12:19 | Discharge Summary ---
Date of Encounter: 04/18/17 Time of Encounter: 12:17 - Discharge Diagnosis (1) Acute respiratory failure with hypoxia Priority: Primary Status: Acute Comments: presented with orthopnea. CXR and BNP normal. Resp PCR negative. On eliquis ( hx of PE and Afib as noted in chart) low D-dimer; effectively ruling out PE. Etiology unknown at this time. Adequately oxygenating on NC. No distress apparent. Cont to monitor. Cont pulseox. BiPAP PRN. Wean O2 as able. Chest CT with known AAA, otherwise non-acute. TTE with EF 65%, mild diastolic dysfunction. Clinically appears to be acute bronchitis with shortness of breath , cough. Z-pack at discharge (2) Diabetes mellitus, type 2 Priority: Secondary Status: Chronic Comments: per hx. Blood sugars elevated d/t steroids; significantly improved once steroids stopped. Cont home diabetes medication regimen. 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 Rate controlled. Cont sotalol, eliquis Qualifiers: Atrial fibrillation type: paroxysmal Qualified Code(s): I48.0 - Paroxysmal atrial fibrillation (4) CKD (chronic kidney disease) stage 3, GFR 30-59 ml/min Priority: Secondary Status: Chronic Comments: per hx. Renal function stable (5) AAA (abdominal aortic aneurysm) Priority: Secondary Status: Acute Comments: Chest CT with descending thoracic aortic aneurysm, measuring 4.7 which is slightly increased from 01/2017 exam. Has not had previous vascular/CTS evaluation. Stable. Continue BP control. Referral to vascular discharge. Qualifiers: Presence of rupture: without rupture Qualified Code(s): I71.4 - Abdominal aortic aneurysm, without rupture - Discharge Medications Prescriptions: Azithromycin [Azithromycin 6-Tab Pack] 250 mg PO PER PKG DI #6 tab Oxycodone HCl [Oxaydo] 5 mg PO Q4H PRN #21 tablet.orl PRN Reason: Pain Home Medications: Calcium Carbonate/Vitamin D3 [Calcium 500-Vit D3 400 Tablet] 1 each PO DAILY [History] Cholecalciferol (Vitamin D3) [Vitamin D3] 1,000 unit PO DAILY 05/13/15 [History] Furosemide [Lasix] 40 mg PO QAM 05/13/15 [History] Gabapentin [Neurontin] 300 mg PO BID 05/13/15 [History] Glimepiride [Amaryl] 4 mg PO QAM 05/13/15 [History] Glucosamine HCl/Chondr Mcghee A Na [Cvs Glucosamine-Chondr Caplet] 1 each PO QPM [History] Losartan [Cozaar] 50 mg PO BID 05/13/15 [History] Magnesium Oxide [Magnesium] 400 mg PO QAM 05/13/15 [History] Pravastatin Sodium [Pravachol] 40 mg PO QPM 05/13/15 [History] Sotalol [Betapace] 80 mg PO BID 05/13/15 [History] Aspirin 81 mg PO DAILY 09/02/16 [History] Diltiazem HCl [Diltiazem 24Hr Cd] 180 mg PO BID 09/02/16 [History] Glimepiride [Amaryl] 2 mg PO QPM 09/02/16 [History] Potassium Chloride [Klor-Con 10] 10 meq PO DAILY 09/02/16 [History] Apixaban [Eliquis] 5 mg PO BID tablet 09/05/16 [Rx] Guaifenesin [Mucinex] 1,200 mg PO BID 10/04/16 [History] Insulin DETEMIR [Levemir] 26 unit SQ BID 01/03/17 [History] Insulin LISPRO [Humalog] 6 unit SQ BIDWM 01/03/17 [History] Loperamide [Imodium] 2 mg PO PER PKG DI PRN MDD 16 mg 01/03/17 [History] Bisacodyl [Dulcolax] 10 mg RC DAILY PRN 04/13/17 [History] Docusate Sodium [Stool Softener] 100 mg PO DAILY PRN 04/13/17 [History] Famotidine [Pepcid] 20 mg PO DAILY 04/13/17 [History] Guaifenesin/Codeine Phosphate [Guaifen-Codeine 100-10 mg/5 ml] 10 ml PO Q6H PRN 04/13/17 [History] Ipratropium/Albuterol Neb [Duoneb] 3 ml IH Q6HR 04/13/17 [History] Ipratropium/Albuterol Neb [Duoneb] 3 ml IH Q6HR PRN 04/13/17 [History] Diclofenac Sodium [Voltaren] 1 appl TP BID 04/14/17 [History] GuaiFENesin/Dextromethorphan [Tussin Dm Syrup] 5 ml PO QID PRN 04/14/17 [History ] Guaifenesin [Mucinex] 600 mg PO BID PRN 04/14/17 [History] Nystatin POWDER [Nystop] 1 appl TP BID 04/14/17 [History] Oxygen 2 l NS HS 04/14/17 [History] Azithromycin [Azithromycin 6-Tab Pack] 250 mg PO PER PKG DI #6 tab 04/18/17 [Rx] Oxycodone HCl [Oxaydo] 5 mg PO Q4H PRN #21 tablet.orl 04/18/17 [Rx] Allergies/Adverse Reactions: 3 Allergy/AdvReac Type Severity Reaction Status Date / Time naproxen [From Aleve] Allergy Mild Blister Verified 04/14/17 18:44 aspirin [ASA] Allergy See Verified 04/14/17 18:44 Comments ibuprofen AdvReac Mild Abdominal Verified 04/14/17 18:44 Pain metformin AdvReac See Verified 04/14/17 18:44 Comments Procedures/tests Complete & Pending: Procedures Performed prior 72 hours Category Date Time Status CT chest w/o contrast [CT chest wo con] [CT] Routine Cat Scan 04/16/17 17:54 Completed EV echocardiogram Routine Y 04/16/17 20:31 Completed Date of admission: 04/14/17 23:35 Primary care physician: Arjun Lizama MD Discharging clinician: Alise Badillo Anticipated date of discharge: 04/18/17 - Patient Status Disposition: Transfer SNF Condition: Good Functional capacity at discharge: uses cane/walker Overall status at discharge: patient is back to baseline - Discharge Instructions Follow Up With: Arjun Lizama MD [Primary Care Provider] - Alan Villarreal MD [Partnered Physician] - 04/28/17 2:00 pm Miky Alex MD [Partnered Physician] - - Diet and Activity Activity: as per physical therapy Diet: advance to your usual diet Interval History: Seen and examoned at bedside, patient says she feels about the same, had an uneventful night. Reports a nonproductive cough, no chest pain or shortness of breath. Left arm is swollen and patient says is from a lab draw 2 days ago. During her trip away, she is aware that she has it but never been worked up or evaluated by vascular. She would be discharged back to [facility] with outpatient follow-up. Hospital course: See assessment and plan for hospital course - Time Spent with Patient Total time spent providing and/or coordinating discharge services: - Constitutional Vitals: Temp Pulse Resp BP Pulse Ox 97.7 F 65 16 151/65 97 04/18/17 11:54 04/18/17 11:54 04/18/17 11:54 04/18/17 11:54 04/18/17 11:54 General appearance: Present: A&O X 3, no acute distress - Head Head exam: Present: atraumatic, normocephalic - Eye Eye exam: Present: PERRL, conjuntiva pink, sclera anicteric Pupils: Present: PERRL - Neck Neck exam general surgery: Present: supple, trachea midline. Absent: lymphadenopathy - Respiratory Respiratory exam: Present: CTAB. Absent: accessory muscle use, rales, rhonchi, wheezes - Cardiovascular Cardiovascular exam: Present: RRR, +S1, +S2. Absent: diastolic murmur, gallop, rubs, systolic murmur - GI/Abdominal GI/Abdominal exam: Present: normal bowel sounds, soft, no peritoneal signs. Absent: distended, tenderness - Extremities Exam Extremities exam: Present: warm, radial pulses palpable and symmetrical. Absent : calf tenderness, cyanotic, pedal edema Additional comments: Left arm edema - Neurological Exam Neurological exam: Present: CN II-XII intact, oriented X3, no focal deficits. Absent: pronater drift, facial droop, speech deficit - Skin Skin exam: Present: dry, intact
[2017-04-18] MEDS: Azithromycin 500 MG in D5% in Water 250 ML IVPB SCH (18:26)
[2017-04-19] MEDS: Ipratropium/Albuterol Neb 3 ML IH SCH ×4 (00:43→11:14)
[2017-04-19 07:23] VITALS: BP 162/76
[2017-04-19] MEDS: Cholecalciferol (D-3) 1,000 UNIT TABLET PO SCH (08:52)
[2017-04-19] MEDS: Diltiazem CD (24hr) 180 MG CAPSULE PO SCH (08:52)
[2017-04-19] MEDS: cefTRIAXone 1,000 MG in Water for inj. (sterile) 20 ML 10 ML IVPB SCH (08:52)
[2017-04-19] MEDS: Apixaban 5 MG TABLET PO SCH (08:52)
[2017-04-19] MEDS: Aspirin 81 MG TAB.CHEW PO SCH (08:52)
[2017-04-19] MEDS: Famotidine 20 MG TABLET PO SCH (08:53)
[2017-04-19] MEDS: Magnesium Oxide 400 MG TABLET PO SCH (08:53)
[2017-04-19] MEDS: Nystatin POWDER 30 GM BOTTLE TP SCH (08:53)
[2017-04-19] MEDS: Gabapentin 300 MG CAPSULE PO SCH (08:53)
[2017-04-19] MEDS: Insulin LISPRO 300 UNITS/3 ML VIAL SQ SCH (08:54)
--- NOTE | 2017-04-19 09:21 | Discharge Summary ---
Date of Encounter: 04/19/17 Time of Encounter: 09:16 - Discharge Diagnosis (1) Acute respiratory failure with hypoxia Priority: Primary Status: Resolved Comments: presented with orthopnea. Required BiPAP in ED to maintain adequate oxygen saturations. CXR and BNP normal. Resp PCR negative. On eliquis (hx of PE and Afib as noted in chart) low D-dimer; effectively ruling out PE. Chest CT with known AAA, otherwise non-acute. TTE with EF 65%, mild diastolic dysfunction. Clinically appears to be acute bronchitis with shortness of breath, cough. Sx's improved with IV ATB. She was adequately oxygenating on room air at time of discharge. (2) Acute bacterial bronchitis Priority: Primary Status: Suspected Comments: suspected. Presented with SOB, orthopnea and cough. CXR, chest CT negative for pneumonia. Treated with IV levaquin while inpatient. Discharge to ECF on Z-pack (3) Diabetes mellitus, type 2 Priority: Secondary Status: Chronic Comments: per hx. Blood sugars elevated d/t steroids; significantly improved once steroids stopped. Cont home diabetes medication regimen. Blood sugar can be monitored at ECF Qualifiers: Diabetes mellitus complication status: without complication Diabetes mellitus senior living insulin use: with director long term care use Qualified Code(s): E11.9 - Type 2 diabetes mellitus without complications; Z79.4 - director long term care (current) use of insulin; Z79.4 - director long term care (current) use of insulin; Z79.4 - director long term care ( current) use of insulin; Z79.4 - director long term care (current) use of insulin (4) Atrial fibrillation Priority: Secondary Status: Chronic Comments: per hx. Rate controlled. Cont sotalol, eliquis Qualifiers: Atrial fibrillation type: paroxysmal Qualified Code(s): I48.0 - Paroxysmal atrial fibrillation (5) CKD (chronic kidney disease) stage 3, GFR 30-59 ml/min Priority: Secondary Status: Chronic Comments: per hx. Renal function stable (6) Thoracic aortic aneurysm without rupture Priority: Secondary Status: Acute Comments: Chest CT with descending thoracic aortic aneurysm, measuring 4.7 which is slightly increased from 01/2017 exam. Has not had previous vascular/CTS evaluation. Stable. Continue BP control. Referral to vascular discharge. - Discharge Medications Prescriptions: Azithromycin [Azithromycin 6-Tab Pack] 250 mg PO PER PKG DI #6 tab Oxycodone HCl [Oxaydo] 5 mg PO Q4H PRN #21 tablet.orl PRN Reason: Pain Home Medications: Calcium Carbonate/Vitamin D3 [Calcium 500-Vit D3 400 Tablet] 1 each PO DAILY [History] Cholecalciferol (Vitamin D3) [Vitamin D3] 1,000 unit PO DAILY 05/13/15 [History] Furosemide [Lasix] 40 mg PO QAM 05/13/15 [History] Gabapentin [Neurontin] 300 mg PO BID 05/13/15 [History] Glimepiride [Amaryl] 4 mg PO QAM 05/13/15 [History] Glucosamine HCl/Chondr Mcgehe A Na [Cvs Glucosamine-Chondr Caplet] 1 each PO QPM [History] Losartan [Cozaar] 50 mg PO BID 05/13/15 [History] Magnesium Oxide [Magnesium] 400 mg PO QAM 05/13/15 [History] Pravastatin Sodium [Pravachol] 40 mg PO QPM 05/13/15 [History] Sotalol [Betapace] 80 mg PO BID 05/13/15 [History] Aspirin 81 mg PO DAILY 09/02/16 [History] Diltiazem HCl [Diltiazem 24Hr Cd] 180 mg PO BID 09/02/16 [History] Glimepiride [Amaryl] 2 mg PO QPM 09/02/16 [History] Potassium Chloride [Klor-Con 10] 10 meq PO DAILY 09/02/16 [History] Apixaban [Eliquis] 5 mg PO BID tablet 09/05/16 [Rx] Guaifenesin [Mucinex] 1,200 mg PO BID 10/04/16 [History] Insulin DETEMIR [Levemir] 26 unit SQ BID 01/03/17 [History] Insulin LISPRO [Humalog] 6 unit SQ BIDWM 01/03/17 [History] Loperamide [Imodium] 2 mg PO PER PKG DI PRN MDD 16 mg 01/03/17 [History] Bisacodyl [Dulcolax] 10 mg RC DAILY PRN 04/13/17 [History] Docusate Sodium [Stool Softener] 100 mg PO DAILY PRN 04/13/17 [History] Famotidine [Pepcid] 20 mg PO DAILY 04/13/17 [History] Guaifenesin/Codeine Phosphate [Guaifen-Codeine 100-10 mg/5 ml] 10 ml PO Q6H PRN 04/13/17 [History] Ipratropium/Albuterol Neb [Duoneb] 3 ml IH Q6HR 04/13/17 [History] Ipratropium/Albuterol Neb [Duoneb] 3 ml IH Q6HR PRN 04/13/17 [History] Diclofenac Sodium [Voltaren] 1 appl TP BID 04/14/17 [History] GuaiFENesin/Dextromethorphan [Tussin Dm Syrup] 5 ml PO QID PRN 04/14/17 [History ] Guaifenesin [Mucinex] 600 mg PO BID PRN 04/14/17 [History] Nystatin POWDER [Nystop] 1 appl TP BID 04/14/17 [History] Oxygen 2 l NS HS 04/14/17 [History] Azithromycin [Azithromycin 6-Tab Pack] 250 mg PO PER PKG DI #6 tab 04/18/17 [Rx] Oxycodone HCl [Oxaydo] 5 mg PO Q4H PRN #21 tablet.orl 04/18/17 [Rx] Allergies/Adverse Reactions: 3 Allergy/AdvReac Type Severity Reaction Status Date / Time naproxen [From Aleve] Allergy Mild Blister Verified 04/14/17 18:44 aspirin [ASA] Allergy See Verified 04/14/17 18:44 Comments ibuprofen AdvReac Mild Abdominal Verified 04/14/17 18:44 Pain metformin AdvReac See Verified 04/14/17 18:44 Comments Procedures/tests Complete & Pending: Procedures Performed prior 72 hours Category Date Time Status CT chest w/o contrast [CT chest wo con] [CT] Routine Cat Scan 04/16/17 17:54 Completed EV echocardiogram Routine Y 04/16/17 20:31 Completed Venous Doppler [EV venous imaging UE LT] Routine Y 04/18/17 19:29 Completed Date of admission: 04/14/17 23:35 Primary care physician: Arjun Lizama MD Discharging clinician: Alise Badillo Anticipated date of discharge: 04/19/17 - Patient Status Disposition: Transfer SNF Condition: Good Functional capacity at discharge: uses cane/walker Overall status at discharge: patient is back to baseline - Discharge Instructions Follow Up With: Arjun Lizama MD [Primary Care Provider] - Alan Villarreal MD [Partnered Physician] - 04/28/17 2:00 pm Miky Alex MD [Partnered Physician] - - Diet and Activity Activity: as per physical therapy Diet: advance to your usual diet Interval History: Seen and examined at [facility], patient says she feels much better and wants to go return to [facility] today. Still has cough no SOB, no CP Hospital course: See assessment and plan for hospital course - Time Spent with Patient Total time spent providing and/or coordinating discharge services: - Constitutional Vitals: Temp Pulse Resp BP Pulse Ox 97.7 F 62 16 162/76 99 04/19/17 07:22 04/19/17 07:22 04/19/17 07:22 04/19/17 07:22 04/19/17 07:22 General appearance: Present: A&O X 3, no acute distress - Head Head exam: Present: atraumatic, normocephalic - Eye Eye exam: Present: PERRL, conjuntiva pink, sclera anicteric Pupils: Present: PERRL - Neck Neck exam general surgery: Present: supple, trachea midline. Absent: lymphadenopathy - Respiratory Respiratory exam: Present: CTAB. Absent: accessory muscle use, rales, rhonchi, wheezes - Cardiovascular Cardiovascular exam: Present: RRR, +S1, +S2. Absent: diastolic murmur, gallop, rubs, systolic murmur - GI/Abdominal GI/Abdominal exam: Present: normal bowel sounds, soft, no peritoneal signs. Absent: distended, tenderness - Extremities Exam Extremities exam: Present: warm, radial pulses palpable and symmetrical. Absent : calf tenderness, cyanotic, pedal edema Additional comments: LUE edema, improved - Neurological Exam Neurological exam: Present: CN II-XII intact, oriented X3, no focal deficits. Absent: pronater drift, facial droop, speech deficit - Skin Skin exam: Present: dry, intact
--- NOTE | 2017-04-19 09:31 | Physician Discharge Referral ---
ExtendedCare Referral Info Transfer To: ECF Provider in Charge: Alise Badillo CNP Provider in Charge after Transfer: PCP Institutional Level of Care: Skilled - Diagnosis (1) Acute respiratory failure with hypoxia Status: Resolved (2) Acute bacterial bronchitis Status: Suspected (3) Diabetes mellitus, type 2 Status: Chronic (4) Atrial fibrillation Status: Chronic (5) CKD (chronic kidney disease) stage 3, GFR 30-59 ml/min Status: Chronic (6) Thoracic aortic aneurysm without rupture Status: Acute - Transfer Medications Prescriptions: Azithromycin [Azithromycin 6-Tab Pack] 250 mg PO PER PKG DI #6 tab Oxycodone HCl [Oxaydo] 5 mg PO Q4H PRN #21 tablet.orl PRN Reason: Pain Home Medications: Calcium Carbonate/Vitamin D3 [Calcium 500-Vit D3 400 Tablet] 1 each PO DAILY [History] Cholecalciferol (Vitamin D3) [Vitamin D3] 1,000 unit PO DAILY 05/13/15 [History] Furosemide [Lasix] 40 mg PO QAM 05/13/15 [History] Gabapentin [Neurontin] 300 mg PO BID 05/13/15 [History] Glimepiride [Amaryl] 4 mg PO QAM 05/13/15 [History] Glucosamine HCl/Chondr Mcghee A Na [Cvs Glucosamine-Chondr Caplet] 1 each PO QPM [History] Losartan [Cozaar] 50 mg PO BID 05/13/15 [History] Magnesium Oxide [Magnesium] 400 mg PO QAM 05/13/15 [History] Pravastatin Sodium [Pravachol] 40 mg PO QPM 05/13/15 [History] Sotalol [Betapace] 80 mg PO BID 05/13/15 [History] Aspirin 81 mg PO DAILY 09/02/16 [History] Diltiazem HCl [Diltiazem 24Hr Cd] 180 mg PO BID 09/02/16 [History] Glimepiride [Amaryl] 2 mg PO QPM 09/02/16 [History] Potassium Chloride [Klor-Con 10] 10 meq PO DAILY 09/02/16 [History] Apixaban [Eliquis] 5 mg PO BID tablet 09/05/16 [Rx] Guaifenesin [Mucinex] 1,200 mg PO BID 07/17/17 [History] Insulin DETEMIR [Levemir] 26 unit SQ BID 01/03/17 [History] Insulin LISPRO [Humalog] 6 unit SQ BIDWM 01/03/17 [History] Loperamide [Imodium] 2 mg PO PER PKG DI PRN MDD 16 mg 01/03/17 [History] Bisacodyl [Dulcolax] 10 mg RC DAILY PRN 04/13/17 [History] Docusate Sodium [Stool Softener] 100 mg PO DAILY PRN 04/13/17 [History] Famotidine [Pepcid] 20 mg PO DAILY 04/13/17 [History] Guaifenesin/Codeine Phosphate [Guaifen-Codeine 100-10 mg/5 ml] 10 ml PO Q6H PRN 04/13/17 [History] Ipratropium/Albuterol Neb [Duoneb] 3 ml IH Q6HR 04/13/17 [History] Ipratropium/Albuterol Neb [Duoneb] 3 ml IH Q6HR PRN 04/13/17 [History] Diclofenac Sodium [Voltaren] 1 appl TP BID 04/14/17 [History] GuaiFENesin/Dextromethorphan [Tussin Dm Syrup] 5 ml PO QID PRN 04/14/17 [History ] Guaifenesin [Mucinex] 600 mg PO BID PRN 04/14/17 [History] Nystatin POWDER [Nystop] 1 appl TP BID 04/14/17 [History] Oxygen 2 l NS HS 04/14/17 [History] Azithromycin [Azithromycin 6-Tab Pack] 250 mg PO PER PKG DI #6 tab 04/18/17 [Rx] Oxycodone HCl [Oxaydo] 5 mg PO Q4H PRN #21 tablet.orl 04/18/17 [Rx] Allergies/Adverse Reactions: 3 Allergy/AdvReac Type Severity Reaction Status Date / Time naproxen [From Aleve] Allergy Mild Blister Verified 04/14/17 18:44 aspirin [ASA] Allergy See Verified 04/14/17 18:44 Comments ibuprofen AdvReac Mild Abdominal Verified 04/14/17 18:44 Pain metformin AdvReac See Verified 04/14/17 18:44 Comments - Respiratory Orders Smoking Cessation: Smoking cessation has been advised. For more information, call the [place] Tobacco Quit Line at 5-840-EJLA-NOW. - Advance Directives Code Status: DNR-Comfort Care - Mobility Orders Ambulate - Rehabiliation Orders Rehab Potential: Fair Rehab Orders: Evaluation for Physical Therapy, Evaluation for Occupational Therapy - Diet Orders No Added Salt (HARLEY), No Concentrated Sweets CERTIFICATION: I certify that the transfer of the above named patient to an Extended Care Facility is necessary for the continuing treatment of the diagnosis listed. The above information is true and accurate reflection of patient's current condition. Confidential - Redisclosure prohibited without a patient's written consent.
[2017-04-19] MEDS: Insulin DETEMIR 100 UNIT/ML X5UNITS SQ SCH (10:46)
== END 2017-04-19 12:41 | DRG 202 ==
LOC: 3BNU 18:31 → EMEROO 18:31 → 3BNU 22:45
PROVIDERS: ADMIT Registered Nurse; ATTEND Registered Nurse

== ENCOUNTER 2017-09-03 18:19 | Inpatient (IN) ==
[2017-09-03] MEDS ORDERED: Nitroglycerin 1 INCH/GM PACKET TP ONE (18:37)
[2017-09-03 19:09] LABS: Basophils # 0.1 K/mcL (0.0-0.2); Basophils % 0.6 %; Eosinophils # 0.2 K/mcL (0.0-0.6); Eosinophils % 2.2 %; Hematocrit 40.6 % (35.3-44.9); Hemoglobin 13.4 g/dL (11.5-15.4); Immature Granulocytes % 0.2 % (0-4); Lymphocytes # 1.7 K/mcL (0.6-4.6); Mean Corpuscular Hemoglobin 30.7 pg (28.0-33.3); Mean Corpuscular Volume 93.1 fL (83.0-100.0); Mean Platelet Volume 11.9 fL (9.4-12.4); Monocytes % 11.7 %; Neutrophils # 5.6 K/mcL (1.6-8.9); Platelet Count 169 K/mcL (140-400); Red Blood Count 4.36 M/mcL (3.82-4.97); Red Cell Distribution Width 13.1 % (11.5-14.5); Segmented Neutrophils % 65.3 %
--- NOTE | 2017-09-03 19:14 | Emergency Department Note ---
Disposition Clinical Impression: Cough, Bronchitis Upper respiratory infection Qualifiers: URI type: unspecified viral URI Qualified Code(s): J06.9 - Acute upper respiratory infection, unspecified Hemorrhoid Qualifiers: Hemorrhoid type: unspecified Qualified Code(s): K64.9 - Unspecified hemorrhoids Hypertension Qualifiers: Hypertension type: unspecified Qualified Code(s): I10 - Essential (primary) hypertension Disposition: Admitted As Inpatient Condition: Fair Instructions: Hypertension (ED), Acute Cough (ED) Reasons to Return/Additional Instructions: Please follow closely with your primary care provider. Please take all medications as they are prescribed. If you are concerned about your medical condition or if your symptoms change please return immediately to the emergency room for repeat evaluation. Please follow the return precautions that were discussed in great detail here in the emergency room prior to you being discharged home. Please take all of your home medications as they are prescribed. Prescriptions: Doxycycline Hyclate 100 mg PO BID #14 tablet Referrals: NONE,PCP [Primary Care Provider] - Forms: ED Satisfaction Letter, Work/School Release Time of Disposition: 21:40 General Adult HPI - General Chief complaint: ED General Medical Stated complaint: hypertension Time Seen by Provider: 09/03/17 18:21 Source: EMS Mode of arrival: EMS Limitations: no limitations Nursing Notes Reviewed: Yes Vital Signs Reviewed: Yes - History of Present Illness HPI Narrative: Patient presents emergency room from alf facility for evaluation of hypertension as well as a bleeding hemorrhoid. Patient has had history of high blood pressure in the past. She denies any chest pain shortness of breath headache vision changes nausea vomiting or diarrhea. Denies any fevers or chills. No recent trauma or injury. She has not missed any of her medication doses at home. Patient discloses that the reason that she came in the state she has had this persistent cough for the last 2 days at everybody else in her care home his had. Onset (ago): day(s) Location: chest Radiation: non-radiation Pain Scale: 0 Consistency: intermittent Improves with: nothing Worsens with: nothing Associated symptoms: Reports: cough Treatments Prior to Arrival: none - Related Data Home Medications Medication Instructions Recorded Confirmed Calcium Carbonate/Vitamin D3 1 each PO DAILY 05/13/15 07/04/17 [Calcium 500-Vit D3 400 Tablet] Cholecalciferol (Vitamin D3) 1,000 unit PO DAILY 05/13/15 07/04/17 [Vitamin D3] Furosemide [Lasix] 40 mg PO QAM 05/13/15 07/04/17 Gabapentin [Neurontin] 300 mg PO BID 05/13/15 07/04/17 Glimepiride [Amaryl] 4 mg PO QAM 05/13/15 07/04/17 Glucosamine HCl/Chondr Mcghee A Na 1 each PO QPM 05/13/15 07/04/17 [[facility]vs Glucosamine-Chondr Caplet] Losartan [Cozaar] 50 mg PO BID 05/13/15 07/04/17 Magnesium Oxide [Magnesium] 400 mg PO QAM 05/13/15 07/04/17 Pravastatin Sodium [Pravachol] 40 mg PO QPM 05/13/15 07/04/17 Sotalol [Betapace] 80 mg PO BID 05/13/15 07/04/17 Aspirin 81 mg PO DAILY 09/02/16 07/04/17 Diltiazem HCl [Diltiazem 24Hr Cd] 180 mg PO BID 09/02/16 07/04/17 Glimepiride [Amaryl] 2 mg PO QPM 09/02/16 07/04/17 Potassium Chloride [Klor-Con 10] 20 meq PO DAILY 09/02/16 07/04/17 Guaifenesin [Mucinex] 1,200 mg PO BID 10/04/16 07/04/17 Loperamide [Imodium] 2 mg PO PER PKG DI PRN MDD 16 mg 01/03/17 07/04/17 Bisacodyl [Dulcolax] 10 mg RC DAILY PRN 04/13/17 07/04/17 Docusate Sodium [Stool Softener] 100 mg PO DAILY PRN 04/13/17 07/04/17 Famotidine [Pepcid] 20 mg PO DAILY 04/13/17 07/04/17 Ipratropium/Albuterol Neb [Duoneb] 3 ml IH Q6HR PRN 04/13/17 07/04/17 Guaifenesin [Mucinex] 1,200 mg PO BID PRN 04/14/17 07/04/17 ALPRAZolam [Xanax 0.5 MG Tablet] 0.5 mg PO HS 07/04/17 07/04/17 Ferrous Sulfate 325 mg PO DAILY 07/04/17 07/04/17 Previous Rx's Medication Instructions Recorded Apixaban [Eliquis] 2.5 mg PO BID #60 tablet 07/04/17 Doxycycline Hyclate 100 mg PO BID #14 tablet 09/03/17 Allergies Allergy/AdvReac Type Severity Reaction Status Date / Time naproxen [From Aleve] Allergy Mild Blister Verified 07/04/17 10:47 aspirin [ASA] Allergy See Verified 07/04/17 10:47 Comments ibuprofen AdvReac Mild Abdominal Verified 07/04/17 10:47 Pain metformin AdvReac See Verified 07/04/17 10:47 Comments All systems ED: reviewed and negative except as stated. Review of Systems: As Per HPI Constitutional: Denies: fever, chills Cardiovascular: Denies: chest pain, palpitations, dyspnea on exertion, orthopnea , edema Respiratory: Reports: cough, dyspnea, sputum production. Denies: wheezes, hemoptysis Gastrointestinal: Reports: hematochezia. Denies: abdominal pain, nausea, vomiting, diarrhea Genitourinary: Denies: urgency, dysuria, frequency Musculoskeletal: Denies: back pain, neck pain Integumentary: Denies: rash Neurological: Denies: headache Past Medical History - Past Medical History Attestation: Yes The following information was validated with the patient. Source: patient Medical history: Reports: atrial fibrillation, DVT, diabetes, GI bleed, hyperlipidemia, hypertension, renal disease, other Surgical history: Reports: appendectomy, cholecystectomy, herniorrhaphy, hysterectomy, orthopedic, other, pacemaker/AICD Psychiatric history: Reports: anxiety JUNIOR ENGINEER history: Reports: no JUNIOR ENGINEER history, other - Social History Smoking Status: Never smoker Smokeless Tobacco Status: No Alcohol use: Reports: none Drug use: Reports: none Physical Exam - General Limitations: no limitations General appearance: alert, in no apparent distress - Head Head exam: atraumatic, normocephalic, normal inspection - Eye Eye exam: Present: normal appearance, PERRL, EOMI - ENT ENT exam: normal exam, normal oropharynx, mucous membranes moist - Neck Neck exam: Present: normal inspection, full ROM, trachea midline - Chest Chest inspection: Present: normal inspection, symmetric chest wall rise - Respiratory Respiratory exam: Present: normal lung sounds bilaterally - Cardiovascular Cardiovascular exam: Present: regular rate, normal rhythm, normal heart sounds - Abdominal Exam Abdominal exam: Present: soft, Non-Tender, normal bowel sounds. Absent: tenderness, distention, guarding, rebound, rigidity, Cardenas's sign, Rovsing's sign, tenderness at McBurney's Point - Extremities Exam Extremities exam: Present: normal inspection, full ROM, normal capillary refill. Absent: tenderness, pedal edema - Back Exam Back exam: Present: normal inspection - Neurological Exam Neurological exam: Present: alert, oriented X3, CN II-XII intact - Skin Skin exam: Present: warm, dry, intact, normal color Course Course Narrative: Patient seen and examined the time of arrival. See history of present illness. 87-year-old female presents from alf facility for evaluation of elevated blood pressure cough and bleeding hemorrhoid. Patient is currently on a blood tenderness had hemorrhoid issues in the past. She denies any vaginal bleeding diarrhea or blood in her stool. Patient denies any urinary symptoms. Currently she is denying chest pain fevers chills nausea vomiting or diarrhea headache or vision change. She has intermittent shortness of breath but only comes on when she is coughing. She has had a nonproductive cough last 2 days ago everybody else in her alf facility has had. Vital signs reviewed in triage and the patient was hypertensive on presentation but the remainder the vital signs are stable. Patient denied any headache or blurry vision. Physical exam is unremarkable head is atraumatic pupils are equal round reactive oropharynx is patent trachea is midline she has no stridor no trismus. Her lungs are clear to auscultation bilaterally heart is regular with no murmurs at this point. She does not appear to have atrial fibrillation at this time. She does have a pacemaker site in place in the left chest wall. Remainder of physical exam appears to be unremarkable. She has no signs of pitting edema swelling or neurologic deficits. Patient will have screening evaluation completed here today for end organ dysfunction secondary to the elevated blood pressure. She does not have any acute concerning symptoms like headache or vision related issues. Evelina glycerin paste will be applied to the anterior chest wall developing on the blood pressure 1 in the emergency room as we address other underlying etiology. CBC chemistry troponin and urinalysis will be collected at this time along with chest x-ray and EKG. Disposition pending a full workup and treatment course. Patient is otherwise clinically stable. - Reevaluation(s) Reevaluation #1: Hemoglobin and labs are unremarkable except for slightly elevated creatinine of 1.29. Patient is fluctuated in the past. Her blood pressure came down nicely to 188 systolic. Patient's symptoms are completely resolved outside of the cough. Patient does not have any acute signs of pneumonia. She most likely has upper respiratory infection consistent with everybody else at her nursing facility. We will evaluate the hemorrhoid nondistended is any active bleeding and discuss disposition. Patient is otherwise been clinically stable and resting comfortably in the bed here now. Patient says that her normal blood pressure is between 175 and 185 systolic. The hemorrhoid was evaluated in the rectal area and it shows anterior hemorrhoid that is not actively bleeding at this time. There is no visible signs of thrombosis there is no rectal bleeding or discomfort in her fissure at this point. Patient will be provided a home medications and disposition will be determined Time: 20:50 Reevaluation #2: Patient's blood pressure is maintained at this time. Single dose of home medications diltiazem is given. Patient will be treated with antibiotic regimen for home for her bronchitis considering everybody else at the care home as been ill. She does not have any other etiology at this point. Her blood pressure chronically run hot runs high. Her kidney function is only slightly elevated and does not require acute intervention. She will be recommended to have a follow-up in the outpatient setting. Her hemorrhoid is stable. Patient otherwise in no distress and in good medical condition at the time of discharge back to the alf facility for definitive management. Time: 21:37 Reevaluation #3: For the patient was given a liter emergency room she started complaining of a headache again and her blood pressure spiked (200. Patient's going to be admitted at this time for symptomatic hyertension. We will order blood pressure medication this point to help with the symptoms and then admitted at this time. Hospitalist was contacted. Getting a single dose of hydralazine here in the emergency room to help with hypertension and tingling to get the patient admitted. No other concerns or issues at this point no other recommendations. Time: 22:37 Vital Signs Temperature 98.8 F 09/03/17 18:21 Pulse Rate 87 09/03/17 18:21 Respiratory Rate 18 09/03/17 18:21 Blood Pressure 237/111 09/03/17 18:21 O2 Sat by Pulse Oximetry 94 09/03/17 18:21 Temperature 98.8 F 09/03/17 18:21 Pulse Rate 84 09/03/17 22:00 Respiratory Rate 28 09/03/17 22:00 Blood Pressure 203/104 09/03/17 22:00 O2 Sat by Pulse Oximetry 94 09/03/17 22:00 Oxygen Delivery Oxygen Delivery Room Air Medical Decision Making - MDM Narrative Medical decision making narrative: Hypertension, bleeding hemorrhoid, upper respiratory infection - Medical Records Medical records reviewed: Yes I reviewed the patient's medical records. - Lab Data Lab results reviewed: Yes I reviewed the patient's lab results. Result diagrams: 09/03/17 18:53 09/03/17 18:53 Lab Results 09/03/17 09/03/17 09/03/17 Range/Units 18:28 18:53 18:53 WBC (4.3-11.1) K/mcL RBC (3.82-4.97) M/mcL Hgb (11.5-15.4) g/dL Hct (35.3-44.9) % MCV (83.0-100.0) fL MCH (28.0-33.3) pg MCHC (31.6-35.5) g/dL RDW (11.5-14.5) % Plt Count (140-400) K/mcL MPV (9.4-12.4) fL Immature Gran % (0-4) % Seg Neutrophils % % Lymphocytes % % Monocytes % % Eosinophils % % Basophils % % Neutrophils # (1.6-8.9) K/mcL Lymphocytes # (0.6-4.6) K/mcL Monocytes # (0.0-1.3) K/mcL Eosinophils # (0.0-0.6) K/mcL Basophils # (0.0-0.2) K/mcL PT 13.6 H (9.4-12.1) Seconds INR 1.3 APTT 32.9 (26.0-36.0) Seconds Sodium (136-145) mEq/L Potassium (3.5-5.1) mEq/L Chloride (98-107) mEq/L Carbon Dioxide (23-29) mEq/L BUN (8-23) mg/dL Creatinine (0.60-1.20) mg/dL Est GFR ( Amer) (> 60) Est GFR (Non-Af Amer) (> 60) BUN/Creatinine Ratio (6-26) Glucose (70-105) mg/dL Calculated Osmolality (280-300) Calcium (8.6-10.3) mg/dL Troponin I (< 0.04) ng/mL B-Natriuretic Peptide 92 (Less than 100) pg/mL Urine Color Yellow (Yellow) Urine Clarity Clear (Clear) Urine pH 5.5 (5.0-8.0) pH Units Ur Specific [place] 1.018 (1.010-1.025) Urine Protein Negative (Neg-Trace) mg/dL Urine Glucose (UA) Normal (Normal) mg/dL Urine Ketones Negative (Negative) mg/dL Urine Blood Negative (Negative) Urine Nitrite Negative (Negative) Urine Bilirubin Negative (Negative) Urine Urobilinogen Normal (Normal) mg/dL Ur Leukocyte Esterase Negative (Negative) Ur Culture Indicated? NO (NO) 09/03/17 09/03/17 Range/Units 18:53 18:53 WBC 8.6 (4.3-11.1) K/mcL RBC 4.36 (3.82-4.97) M/mcL Hgb 13.4 (11.5-15.4) g/dL Hct 40.6 (35.3-44.9) % MCV 93.1 (83.0-100.0) fL MCH 30.7 (28.0-33.3) pg MCHC 33.0 (31.6-35.5) g/dL RDW 13.1 (11.5-14.5) % Plt Count 169 (140-400) K/mcL MPV 11.9 (9.4-12.4) fL Immature Gran % 0.2 (0-4) % Seg Neutrophils % 65.3 % Lymphocytes % 20.0 % Monocytes % 11.7 % Eosinophils % 2.2 % Basophils % 0.6 % Neutrophils # 5.6 (1.6-8.9) K/mcL Lymphocytes # 1.7 (0.6-4.6) K/mcL Monocytes # 1.0 (0.0-1.3) K/mcL Eosinophils # 0.2 (0.0-0.6) K/mcL Basophils # 0.1 (0.0-0.2) K/mcL PT (9.4-12.1) Seconds INR APTT (26.0-36.0) Seconds Sodium 136 (136-145) mEq/L Potassium 4.3 (3.5-5.1) mEq/L Chloride 104 (98-107) mEq/L Carbon Dioxide 23 (23-29) mEq/L BUN 28 H (8-23) mg/dL Creatinine 1.29 H (0.60-1.20) mg/dL Est GFR ( Amer) 48 L (> 60) Est GFR (Non-Af Amer) 39 L (> 60) BUN/Creatinine Ratio 22 (6-26) Glucose 201 H (70-105) mg/dL Calculated Osmolality 293 (280-300) Calcium 9.2 (8.6-10.3) mg/dL Troponin I < 0.03 (< 0.04) ng/mL B-Natriuretic Peptide (Less than 100) pg/mL Urine Color (Yellow) Urine Clarity (Clear) Urine pH (5.0-8.0) pH Units Ur Specific [place] (1.010-1.025) Urine Protein (Neg-Trace) mg/dL Urine Glucose (UA) (Normal) mg/dL Urine Ketones (Negative) mg/dL Urine Blood (Negative) Urine Nitrite (Negative) Urine Bilirubin (Negative) Urine Urobilinogen (Normal) mg/dL Ur Leukocyte Esterase (Negative) Ur Culture Indicated? (NO) - Radiology Data Radiology results reviewed: Yes I reviewed the patient's radiology results. Chest x-ray is unremarkable for acute pathology no signs of infection or pneumonia at this point. CT imaging the abdomen shows chronic symptoms at this time otherwise no other acute pathology. - EKG Data EKG #1 EKG attestation: Yes I reviewed and interpreted this EKG. EKG results narrative: EKG shows ventricularly paced rhythm and no acute abnormalities. No acute signs of ST segment elevation or abnormality this time.
[2017-09-03 19:18] LABS: INR 1.3; Prothrombin Time 13.6 Seconds (9.4-12.1)
[2017-09-03 19:21] LABS: Activated Partial Thrombo Time 32.9 Seconds (26.0-36.0)
[2017-09-03 19:32] LABS: BUN/Creatinine Ratio 22 (6-26); Blood Urea Nitrogen 28 mg/dL (8-23); Calcium 9.2 mg/dL (8.6-10.3); Carbon Dioxide 23 mEq/L (23-29); Chloride 104 mEq/L (98-107); Glucose 201 mg/dL (70-105); Osmolality,Calculated 293 (280-300); Potassium 4.3 mEq/L (3.5-5.1); Sodium 136 mEq/L (136-145); eGFR For African Americans 48 (> 60); eGFR For Non-African Americans 39 (> 60)
[2017-09-03 19:34] LABS: Troponin I < 0.03 ng/mL (< 0.04)
[2017-09-03 19:48] LABS: Bilirubin,Urine Negative (Negative); Blood,Urine Negative (Negative); Clarity,Urine Clear (Clear); Color,Urine Yellow (Yellow); Glucose,Urine (UA) Normal (Normal); Ketones,Urine Negative (Negative); Leukocyte Esterase,Urine Negative (Negative); Nitrite,Urine Negative (Negative); PH,Urine 5.5 pH Units (5.0-8.0); Protein,Urine Negative (Neg-Trace); Specific Gravity,Urine 1.018 (1.010-1.025); Urobilinogen,Urine Normal (Normal)
[2017-09-03] MEDS ORDERED: Gentamicin 150 MG in 0.9 % Sodium Chloride 100 ML IVPB ONE (20:05)
[2017-09-03] MEDS ORDERED: dilTIAZem HCl 60 MG TABLET PO STA (20:51)
[2017-09-04] MEDS ORDERED: *HR* Dextrose 50 % in Water (Syg) 50 ML SYRINGE IVP PRN (02:33)
[2017-09-04] MEDS ORDERED: Albuterol 2.5 MG/3 ML NEBULIZER IH PRN (02:33)
[2017-09-04] MEDS ORDERED: D5% in Water 1,000 ML IVC PRN (02:33)
[2017-09-04] MEDS ORDERED: Naloxone 0.4 MG/ML INJ IVP PRN (02:33)
[2017-09-04] MEDS ORDERED: Dextrose Gel 15 GM/37.5 ML TUBE PO PRN ×2 (02:33)
--- NOTE | 2017-09-04 02:59 | Internal Med History&Physical ---
Date of Encounter: 09/04/17 Time of Encounter: 02:00 Internal Medicine - H&P: HPI Chief complaint: hypertension; headache Admitted From: Emergency Dept History of present illness: Ms. De León is a 87 year old female who presents to the ER tonight with complaints of uncontrolled hypertension and bleeding hemorrhoid. She has chronic hypertension but noted her blood pressures were rather elevated today, and then she later had a bleeding hemorrhoid which would not stop. Her [facility] therefore sent her to the ER for evaluation. Workup in ER was unremarkable and her bleeding hemorrhoid stopped. She was ready to be be discharged back to [facility] once her blood pressures was controlled. However, she did have a blood pressure spike again and was developing headache with elevated blood pressure. She was therefore admitted to hospitalist service for uncontrolled hypertension. Upon my assessment of the patient, blood pressure has improved but it is still elevated. Blood pressure is currently 183/85. She states her baseline blood pressure runs about 160-170 systolic. She denies any chest pain, chest tightness, shortness of breath. She has had this nonproductive cough and wheezing for the last several days. She and several of her friends at the [facility] have had similar symptoms as they were exposed to a nurse who had an upper respiratory infection. She denies any fevers, chills, or night sweats. She is wheezing and complaining of shortness of breath with wheezing. Past Med Surg Social Fam HX - Past Medical History Attestation: Yes The following information was validated with the patient. Source: patient, old records reviewed Medical history: atrial fibrillation, DVT (PE as well), diabetes, GI bleed, hyperlipidemia, hypertension, renal disease, other Additional medical history: pacemaker Psychiatric history: anxiety - Past Surgical History Surgical History: appendectomy, cholecystectomy, herniorrhaphy, hysterectomy, orthopedic, other, pacemaker/AICD Additional surgical history: cardiac ablation, back surgery, benign tumors removed from bilateral breast, appendectomy, cholecystectomy, hysterectomy, hernia repair - Social History Smoking Status: Never smoker Smokeless Tobacco Status: No Alcohol use: none Drug use: none Current living situation: [facility] Recent Out of Country Travel Within the Last 8 Weeks: No - Family History Father Living Status: Mother Living Status: Internal Medicine - H&P: Meds Calcium Carbonate/Vitamin D3 [Calcium 500-Vit D3 400 Tablet] 1 each PO DAILY [History] Cholecalciferol (Vitamin D3) [Vitamin D3] 1,000 unit PO DAILY 05/13/15 [History] Furosemide [Lasix] 40 mg PO QAM 05/13/15 [History] Gabapentin [Neurontin] 300 mg PO BID 05/13/15 [History] Glimepiride [Amaryl] 4 mg PO QAM 05/13/15 [History] Glucosamine HCl/Chondr Mcghee A Na [[facility]vs Glucosamine-Chondr Caplet] 1 each PO QPM [History] Losartan [Cozaar] 50 mg PO BID 05/13/15 [History] Magnesium Oxide [Magnesium] 400 mg PO QAM 05/13/15 [History] Pravastatin Sodium [Pravachol] 40 mg PO QPM 05/13/15 [History] Sotalol [Betapace] 80 mg PO BID 05/13/15 [History] Aspirin 81 mg PO DAILY 09/02/16 [History] Diltiazem HCl [Diltiazem 24Hr Cd] 180 mg PO BID 09/02/16 [History] Glimepiride [Amaryl] 2 mg PO QPM 09/02/16 [History] Potassium Chloride [Klor-Con 10] 20 meq PO DAILY 09/02/16 [History] Guaifenesin [Mucinex] 1,200 mg PO BID 10/04/16 [History] Loperamide [Imodium] 2 mg PO PER PKG DI PRN MDD 16 mg 01/03/17 [History] Bisacodyl [Dulcolax] 10 mg RC DAILY PRN 04/13/17 [History] Docusate Sodium [Stool Softener] 100 mg PO DAILY PRN 04/13/17 [History] Famotidine [Pepcid] 20 mg PO DAILY 04/13/17 [History] Ipratropium/Albuterol Neb [Duoneb] 3 ml IH Q6HR PRN 04/13/17 [History] Guaifenesin [Mucinex] 1,200 mg PO BID PRN 04/14/17 [History] ALPRAZolam [Xanax 0.5 MG Tablet] 0.5 mg PO HS 07/04/17 [History] Apixaban [Eliquis] 2.5 mg PO BID #60 tablet 04/16/18 [Rx] Ferrous Sulfate 325 mg PO DAILY 07/04/17 [History] Doxycycline Hyclate 100 mg PO BID #14 tablet 09/03/17 [Rx] 3 Allergy/AdvReac Type Severity Reaction Status Date / Time naproxen [From Aleve] Allergy Mild Blister Verified 07/04/17 10:47 aspirin [ASA] Allergy See Verified 07/04/17 10:47 Comments ibuprofen AdvReac Mild Abdominal Verified 07/04/17 10:47 Pain metformin AdvReac See Verified 07/04/17 10:47 Comments - Constitutional Constitutional: fatigue, no chills, no fever(s), no night sweats - EENT Eyes: no blurry vision, no change in vision Ears: no tinnitus Nose, mouth and throat: nasal congestion, no sinus pressure, no sore throat - Cardiovascular Cardiovascular ROS IM: dyspnea, dyspnea on exertion, no chest pain, no orthopnea , no palpitations, no paroxysmal nocturnal dyspnea - Respiratory Respiratory: cough, dyspnea, wheezing, chest congestion, no excessive phlegm production, no change in phlegm color, no pain with cough - Gastrointestinal Gastrointestinal: no abdominal pain, no diarrhea, no hematemesis, no hematochezia, no melena, no nausea, no vomiting Additional comments: + hemorrhoidal bleed -- stopped - Genitourinary Genitourinary: no dysuria, no flank pain, no hematuria - Musculoskeletal Musculoskeletal ROS IM: no arthralgias, no back pain - Integumentary Integumentary IM: no rash, no jaundice - Neurological Neurological ROS: headache(s), no dizziness, no focal weakness, no frequent falls - Psychiatric Psychiatric: no anxiety, no depression - Endocrine Endocrine IM: no polydipsia, no polyuria - Hematologic/Lymphatic Hematologic/Lymphatic: easy bruising - Allergic/Immunologic Allergic/Immunologic: wheezing, no GI upset with certain foods - Constitutional Vitals: Temp Pulse Resp BP Pulse Ox 97.8 F 86 20 198/82 95 09/04/17 00:08 09/04/17 00:08 09/04/17 00:08 09/04/17 00:38 09/04/17 00:08 General appearance: Present: cooperative, mild distress, A&O X 3, pleasant - Head Head exam: Present: atraumatic, normal inspection - Eye Eye exam: Present: EOMI, normal appearance, PERRL. Absent: scleral icterus Pupils: Present: normal accommodation - ENT ENT exam: Present: mucous membranes dry, normal exam - Neck Neck exam general surgery: Present: full ROM, supple. Absent: tenderness, nuchal rigidity, thyromegaly - Respiratory Respiratory exam: Present: prolonged expiratory phase, rhonchi, wheezes. Absent : accessory muscle use, chest wall tenderness, rales, respiratory distress - Cardiovascular Cardiovascular exam: Present: distant heart sounds, +S1, +S2. Absent: diastolic murmur, systolic murmur - GI/Abdominal GI/Abdominal exam: Present: normal bowel sounds, soft. Absent: hepatomegaly, splenomegaly, tenderness - Extremities Exam Extremities exam: Present: full ROM, normal capillary refill, radial pulses palpable and symmetrical. Absent: calf tenderness, joint swelling - Back Exam Back exam: Absent: CVA tenderness (L), CVA tenderness (R) - Neurological Exam Neurological exam: Present: alert, oriented X3, no focal deficits - Psychiatric Psychiatric exam: Present: normal affect, normal mood - Skin Skin exam: Present: dry, intact, warm Internal Med - H&P Results - Labs CBC & Chem 7: 09/03/17 18:53 09/03/17 18:53 - EKG Data -: EKG Interpreted by Myself (ventricular paced rhythm) - Diagnostic Studies Chest x-ray Status: image reviewed by me (negative) - VTE Reasons for not Prescribing Prophylaxis: Not indicated-Anticoagulated or INR therapeutic - Assessment and plan (1) Uncontrolled hypertension Current Visit: Yes Status: Acute Assessment and plan: 1. Will use PRN Hydralazine to stabilize BP. 2. Resume home meds as appropriate once verified. 3. NTP placed on chest in ER. 4. If unable to control BP and subsequent headache, may need more aggessive treatment with Nicardipine drip. (2) Atrial fibrillation Current Visit: Yes Status: Chronic Assessment and plan: 1. Rate control with Betapace and pacer. 2. On Eliquis low dose for atrial fibrillation and h/o DVT/PE. Qualifiers: Atrial fibrillation type: chronic Qualified Code(s): I48.2 - Chronic atrial fibrillation (3) Bronchitis Current Visit: Yes Status: Acute Assessment and plan: 1. Will place on oral Doxycycline and Albuterol aerosols. 2. Xray is clear and does not suggest pneumonia. Exam is not suspicious for pneumonia either. 3. Will try cough suppressant as well. (4) DVT prophylaxis Current Visit: Yes Status: Acute Assessment and plan: 1. Continue home Elliquis.
[2017-09-04] MEDS: Acetaminophen 325 MG TABLET PO PRN ×3 (04:57→18:16)
[2017-09-04 06:54] LABS: Alanine Aminotransferase 25 Units/L (7-52); Albumin 3.6 g/dL (3.5-5.7); Albumin/Globulin Ratio 1.2 (1.1-2.2); Alkaline Phosphatase 65 Units/L (34-104); Aspartate Amino Transferase 19 Units/L (13-39); BUN/Creatinine Ratio 25 (6-26); Bilirubin,Total 0.6 mg/dL (0.3-1.0); Blood Urea Nitrogen 23 mg/dL (8-23); Calcium 8.9 mg/dL (8.6-10.3); Carbon Dioxide 22 mEq/L (23-29); Chloride 104 mEq/L (98-107); Globulin 2.9 g/dL (2.4-3.5); Glucose 226 mg/dL (70-105); Magnesium 1.6 mg/dL (1.6-2.6); Osmolality,Calculated 291 (280-300); Potassium 3.9 mEq/L (3.5-5.1); Sodium 135 mEq/L (136-145); Total Protein 6.5 g/dL (6.4-8.9); eGFR For African Americans > 60 (> 60); eGFR For Non-African Americans 58 (> 60)
[2017-09-04] MEDS: Insulin LISPRO 300 UNITS/3 ML VIAL SQ SCH ×3 (09:15→18:17)
[2017-09-04] MEDS: Doxycycline 100 MG CAPSULE PO SCH ×2 (09:20→21:55)
[2017-09-04] MEDS: Apixaban 2.5 MG TABLET PO SCH ×2 (09:20→21:55)
[2017-09-04] MEDS ORDERED: Ipratropium/Albuterol Neb 3 ML IH PRN (16:12)
[2017-09-04] MEDS ORDERED: Bisacodyl 10 MG RECTAL SUPPOSITORY RC PRN (16:12)
--- NOTE | 2017-09-04 16:22 | Internal Med Progress Note ---
Date of Encounter: 09/04/17 Time of Encounter: 14:00 - Assessment and plan (1) Bronchitis Current Visit: Yes Status: Acute (2) Uncontrolled hypertension Current Visit: Yes Status: Acute (3) Atrial fibrillation Current Visit: Yes Status: Chronic Qualifiers: Atrial fibrillation type: chronic Qualified Code(s): I48.2 - Chronic atrial fibrillation (4) DVT prophylaxis Current Visit: Yes Status: Acute - Time Spent With Patient Plan Will resume more blood pressure medication, add insulin sliding scale for diabetes. Counseling about nutrition. We will check prealbumin. In view of skilled nursing use of Lasix would add thiamine. Counseling: Constipation counseling about the using laxatives she had hard bowel movement today, monitor H&H and electrolytes tomorrow morning Total time spent is greater than 50% in coordination of care (as documented) at patient's floor/unit and/or counseling patient: 25 - 35 minutes - Subjective Interval history: Patient complaining of decreased appetite, markedly diminished oral intake, she denies any headache she denies any motor or sensory changes, her blood pressure continued to be related - Constitutional Vitals: Temp Pulse Resp BP Pulse Ox 98.2 F 64 18 186/79 97 09/04/17 15:39 09/04/17 15:39 09/04/17 15:39 09/04/17 15:39 09/04/17 15:39 General appearance: Present: cooperative, mild distress, A&O X 3, pleasant - Head Head exam: Present: atraumatic, normocephalic - Neck Neck exam general surgery: Present: supple, trachea midline. Absent: lymphadenopathy - Respiratory Respiratory exam: Present: decreased breath sounds. Absent: accessory muscle use, rales, rhonchi, wheezes - Cardiovascular Cardiovascular exam: Present: RRR, +S1, +S2. Absent: diastolic murmur, gallop, rubs, systolic murmur - GI/Abdominal GI/Abdominal exam: Present: normal bowel sounds, soft, no peritoneal signs. Absent: distended, tenderness - Extremities Exam Extremities exam: Present: warm, radial pulses palpable and symmetrical. Absent : calf tenderness, cyanotic, pedal edema - Neurological Exam Neurological exam: Present: CN II-XII intact, oriented X3, no focal deficits. Absent: pronater drift, facial droop, speech deficit Internal Medicine: Result - Labs CBC & Chem 7: 09/03/17 18:53 09/04/17 06:04 Labs: BMP 09/04/17 06:04 Sodium 135 L Potassium 3.9 Chloride 104 Carbon Dioxide 22 L BUN 23 Creatinine 0.92 Glucose 226 H Calcium 8.9 Liver Function 09/04/17 Range/Units 06:04 Total Bilirubin 0.6 (0.3-1.0) mg/dL AST 19 (13-39) Units/L ALT 25 (7-52) Units/L Alkaline Phosphatase 65 (34-104) Units/L Albumin 3.6 (3.5-5.7) g/dL - ABG Interpretation ABG results: PT/INR, D-dimer PT 13.6 Seconds (9.4-12.1) H 09/03/17 18:53 - VTE Reasons for not Prescribing Prophylaxis: Not indicated-Anticoagulated or INR therapeutic Consult Discharge Plan - Plan Referrals: NONE,PCP [Primary Care Provider] -
[2017-09-04] MEDS ORDERED: CHONDROITIN PO SCH (18:00)
[2017-09-04] MEDS ORDERED: GLUCOSAMINE PO SCH (18:00)
[2017-09-04] MEDS: Diltiazem CD (24hr) 180 MG CAPSULE PO SCH ×2 (18:09→21:56)
[2017-09-04] MEDS: Magnesium Oxide 400 MG TABLET PO SCH (18:15)
[2017-09-04] MEDS: Furosemide 20 MG TABLET PO SCH (18:15)
[2017-09-04] MEDS: Aspirin 81 MG TAB.CHEW PO SCH (18:15)
[2017-09-04] MEDS: Famotidine 20 MG TABLET PO SCH (18:16)
[2017-09-04] MEDS ORDERED: INSULIN DETEMIR 28 UNIT SQ SCH (21:00)
[2017-09-04] MEDS ORDERED: ALPRAZolam 0.5 MG TABLET PO SCH (21:00)
[2017-09-04] MEDS ORDERED: Mirtazapine 15 MG TABLET PO SCH (21:00)
[2017-09-04] MEDS: Sennosides/Docusate Sodium TABLET PO SCH (21:55)
[2017-09-04] MEDS: Gabapentin 300 MG CAPSULE PO SCH (21:56)
[2017-09-04] MEDS: Insulin DETEMIR 100 UNIT/ML X5UNITS SQ SCH (21:56)
[2017-09-05 06:07] LABS: Basophils % 0.6 %; Eosinophils # 0.1 K/mcL (0.0-0.6); Hematocrit 41.3 % (35.3-44.9); Immature Granulocytes % 0.2 % (0-4); Lymphocytes # 2.5 K/mcL (0.6-4.6); Lymphocytes % 38.6 %; Mean Corpuscular HGB Conc 31.5 g/dL (31.6-35.5); Mean Corpuscular Volume 98.3 fL (83.0-100.0); Mean Platelet Volume 12.8 fL (9.4-12.4); Monocytes % 15.4 %; Neutrophils # 2.8 K/mcL (1.6-8.9); Platelet Count 130 K/mcL (140-400); Red Cell Distribution Width 13.3 % (11.5-14.5); Segmented Neutrophils % 43.2 %
[2017-09-05 06:29] LABS: Calcium 8.5 mg/dL (8.6-10.3); Magnesium 1.8 mg/dL (1.6-2.6); Phosphorous 3.6 mg/dL (2.7-4.5); Potassium 3.9 mEq/L (3.5-5.1)
[2017-09-05] MEDS ORDERED: Cholecalciferol (D-3) 1,000 UNIT TABLET PO SCH (09:00)
[2017-09-05] MEDS: Insulin LISPRO 300 UNITS/3 ML VIAL SQ SCH ×2 (09:04→11:33)
--- NOTE | 2017-09-05 09:44 | Discharge Summary ---
- NOTES TO OUTPATIENT PROVIDER Notes to Outpatient Provider: Patient was admitted that was uncontrolled hypertension, blood pressure was under good control with home medication, will add hydralazine as needed on discharge, patient is feeling stressed out and depressed lately patient was started on a small dose of his SSri. Need close monitoring, need further monitoring of her orthostatic blood pressure to avoid falling Date of Encounter: 09/05/17 Time of Encounter: 09:43 - Discharge Diagnosis (1) Bronchitis Priority: Secondary Status: Acute (2) Uncontrolled hypertension Priority: Primary Status: Acute (3) Atrial fibrillation Priority: Secondary Status: Chronic Qualifiers: Atrial fibrillation type: chronic Qualified Code(s): I48.2 - Chronic atrial fibrillation (4) DVT prophylaxis Priority: Secondary Status: Acute (5) Anxiety Priority: Secondary Status: Acute Hospital course: 87-year-old female with past medical history of hypertension dyslipidemia atrial fibrillation and constipation, patient stated she has been stressed out lately with living with current resident with Alzheimer dementia, she has been crying a lot she is feeling down. Patient stated on the day of admission Z checked her blood pressure remained time it was elevated more than 200 systolic. Patient denies any chest pain or shortness of breath denies any motor or sensory changes, patient received IV med at emergency room with mild improvement of her blood pressure, with [facility] start patient on hydralazine as needed in addition to resume and her home blood pressure medication, her blood pressure was unable to control, with her recent anxiety and also possible depression, patient takes Ativan which can increase risk of fall and delirium, counseling patient about starting a small dose of Zoloft and weaning off Ativan gradually. Patient is agreeable with start patient on Zoloft and keep Ativan as needed, plan to taper down by family physician at [facility], patient had history of severe constipation was hard stool, prior to admission she had bleeding from her hemorrhoids. Patient was placed on laxatives, counseling patient about fluid as well as laxative. Titrate laxative as needed by [facility] physician avoid any hemorrhoidal bleeding. Hydrocortisone suppository as needed, Discharge discussed with: patient - Time Spent with Patient Total time spent providing and/or coordinating discharge services: Greater than 30 minutes - Discharge Medications Prescriptions: ALPRAZolam [Xanax 0.5 MG Tablet] 0.25 mg PO HS PRN 30 Days #30 tablet PRN Reason: Anxiety Cyanocobalamin (Vitamin B-12) [B-12] 1,000 mcg PO DAILY #90 tablet.er Ergocalciferol (VITAMIN D2) [Drisdol (50,000 Unit)] 50,000 unit PO QWEEK #12 capsule Hydrocortisone Acetate [Hemmorex-Hc] 30 mg RC PRN PRN #30 supp.rect PRN Reason: Hemorrhoids Sennosides/Docusate Sodium [Senna Plus] 1 each PO DAILY 90 Days #90 tablet Sertraline [Zoloft] 25 mg PO DAILY #30 tablet Thiamine HCl [Vitamin B-1] 200 mg PO DAILY #180 tablet Home Medications: Calcium Carbonate/Vitamin D3 [Calcium 500-Vit D3 400 Tablet] 1 each PO DAILY [History] Furosemide [Lasix] 40 mg PO QAM 05/13/15 [History] Gabapentin [Neurontin] 300 mg PO BID 05/13/15 [History] Glimepiride [Amaryl] 4 mg PO QAM 05/13/15 [History] Glucosamine HCl/Chondr Mcghee A Na [Cvs Glucosamine-Chondr Caplet] 1 each PO QPM [History] Losartan [Cozaar] 50 mg PO BID 05/13/15 [History] Magnesium Oxide [Magnesium] 400 mg PO QAM 05/13/15 [History] Pravastatin Sodium [Pravachol] 40 mg PO QPM 05/13/15 [History] Sotalol [Betapace] 80 mg PO BID 05/13/15 [History] Aspirin 81 mg PO DAILY 09/02/16 [History] Diltiazem HCl [Diltiazem 24Hr Cd] 180 mg PO BID 09/02/16 [History] Glimepiride [Amaryl] 2 mg PO QPM 09/02/16 [History] Potassium Chloride [Klor-Con 10] 20 meq PO DAILY 09/02/16 [History] Bisacodyl [Dulcolax] 10 mg RC DAILY PRN 04/13/17 [History] Docusate Sodium [Stool Softener] 100 mg PO DAILY PRN 04/13/17 [History] Famotidine [Pepcid] 20 mg PO DAILY 04/13/17 [History] Ipratropium/Albuterol Neb [Duoneb] 3 ml IH Q6HR PRN 04/13/17 [History] Guaifenesin [Mucinex] 1,200 mg PO BID PRN 04/14/17 [History] Apixaban [Eliquis] 2.5 mg PO BID #60 tablet 07/04/17 [Rx] Ferrous Sulfate 325 mg PO DAILY 07/04/17 [History] Carboxymethylcellulos/Glycerin [Refresh Optive Eye Drops] 1 drop BOTH EYES QID PRN 09/04/17 [History] Insulin ASPART [NovoLOG] 6 unit SQ BID 09/04/17 [History] Insulin DETEMIR [Levemir] 28 unit SQ BID 09/04/17 [History] Oxycodone HCl [Oxaydo] 5 mg PO Q4HR PRN 09/04/17 [History] ALPRAZolam [Xanax 0.5 MG Tablet] 0.25 mg PO HS PRN 30 Days #30 tablet 09/05/17 [ Rx] Cyanocobalamin (Vitamin B-12) [B-12] 1,000 mcg PO DAILY #90 tablet.er 09/05/17 [ Rx] Ergocalciferol (VITAMIN D2) [Drisdol (50,000 Unit)] 50,000 unit PO QWEEK #12 capsule 09/05/17 [Rx] Hydrocortisone Acetate [Hemmorex-Hc] 30 mg RC PRN PRN #30 supp.rect 09/05/17 [Rx ] Sennosides/Docusate Sodium [Senna Plus] 1 each PO DAILY 90 Days #90 tablet 09/05 [Rx] Sertraline [Zoloft] 25 mg PO DAILY #30 tablet 09/05/17 [Rx] Thiamine HCl [Vitamin B-1] 200 mg PO DAILY #180 tablet 09/05/17 [Rx] hydrALAZINE [HydrALAZINE] 25 mg PO Q8HR PRN #90 tablet 09/05/17 [Rx] Allergies/Adverse Reactions: 3 Allergy/AdvReac Type Severity Reaction Status Date / Time naproxen [From Aleve] Allergy Mild Blister Verified 07/04/17 10:47 aspirin [ASA] Allergy See Verified 07/04/17 10:47 Comments ibuprofen AdvReac Mild Abdominal Verified 07/04/17 10:47 Pain metformin AdvReac See Verified 07/04/17 10:47 Comments Date of admission: 09/04/17 17:46 Primary care physician: PCP NONE Discharging clinician: Richelle Galvez Anticipated date of discharge: 09/05/17 - Constitutional Vitals: Temp Pulse Resp BP Pulse Ox 97.9 F 69 22 155/78 94 09/05/17 07:09 09/05/17 07:09 09/05/17 04:29 09/05/17 07:09 09/05/17 07:09 General appearance: Present: cooperative, mild distress, A&O X 3, pleasant - Patient Status Disposition: Transfer SNF Condition: Fair Functional capacity at discharge: independent ambulation Overall status at discharge: patient is progressing back to baseline - Discharge Instructions Follow Up With: NONE,PCP [Primary Care Provider] - - VTE Reasons for not Prescribing Prophylaxis: Not indicated-Anticoagulated or INR therapeutic
--- NOTE | 2017-09-05 10:00 | Electrocardiograph Report ---
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
[2017-09-05] MEDS: Diltiazem CD (24hr) 180 MG CAPSULE PO SCH (10:14)
[2017-09-05] MEDS: Furosemide 20 MG TABLET PO SCH (10:14)
[2017-09-05] MEDS: Apixaban 2.5 MG TABLET PO SCH (10:14)
[2017-09-05] MEDS: Gabapentin 300 MG CAPSULE PO SCH (10:15)
[2017-09-05] MEDS: Famotidine 20 MG TABLET PO SCH (10:15)
[2017-09-05] MEDS: Sennosides/Docusate Sodium TABLET PO SCH (10:16)
[2017-09-05] MEDS: Insulin DETEMIR 100 UNIT/ML X5UNITS SQ SCH (10:16)
[2017-09-05] MEDS: Aspirin 81 MG TAB.CHEW PO SCH (10:16)
[2017-09-05] MEDS: Magnesium Oxide 400 MG TABLET PO SCH (10:16)
[2017-09-05] MEDS: Doxycycline 100 MG CAPSULE PO SCH (10:16)
[2017-09-05 11:07] VITALS: BP 145/74
--- NOTE | 2017-09-05 12:31 | Physician Discharge Referral ---
Home Health/Hosp Referral Info Transfer to: Home Health Provider in Charge Post Discharge: PCP - Diagnosis (1) Bronchitis Priority: Secondary Status: Acute (2) Uncontrolled hypertension Priority: Primary Status: Acute (3) Atrial fibrillation Priority: Secondary Status: Chronic (4) DVT prophylaxis Priority: Secondary Status: Acute (5) Anxiety Priority: Secondary Status: Acute (6) Bleeding hemorrhoid Priority: Primary Status: Acute (7) Constipation Priority: Secondary Status: Acute - Respiratory Orders Smoking Cessation: Smoking cessation has been advised. For more information, call the [place] [employer] Quit Line at 2-923-KVDL-NOW. - Diet/Nutrition Diet/Nutrition Orders: Cardiac - Activity Activity Orders: Up ad elissa - Services Needed Following services are medically necessary services: Nursing (Patient needs close monitoring of her blood pressure) - Transfer Medications Prescriptions: hydrALAZINE [HydrALAZINE] 25 mg PO Q8HR PRN #90 tablet PRN Reason: Increased Blood Pressure ALPRAZolam [Xanax 0.5 MG Tablet] 0.25 mg PO HS PRN 30 Days #30 tablet PRN Reason: Anxiety Cyanocobalamin (Vitamin B-12) [B-12] 1,000 mcg PO DAILY #90 tablet.er Ergocalciferol (VITAMIN D2) [Drisdol (50,000 Unit)] 50,000 unit PO QWEEK #12 capsule Hydrocortisone Acetate [Hemmorex-Hc] 30 mg RC PRN PRN #30 supp.rect PRN Reason: Hemorrhoids Sennosides/Docusate Sodium [Senna Plus] 1 each PO DAILY 90 Days #90 tablet Sertraline [Zoloft] 25 mg PO DAILY #30 tablet Thiamine HCl [Vitamin B-1] 200 mg PO DAILY #180 tablet Home Medications: Calcium Carbonate/Vitamin D3 [Calcium 500-Vit D3 400 Tablet] 1 each PO DAILY [History] Furosemide [Lasix] 40 mg PO QAM 05/13/15 [History] Gabapentin [Neurontin] 300 mg PO BID 05/13/15 [History] Glimepiride [Amaryl] 4 mg PO QAM 05/13/15 [History] Glucosamine HCl/Chondr Mcghee A Na [Cvs Glucosamine-Chondr Caplet] 1 each PO QPM [History] Losartan [Cozaar] 50 mg PO BID 05/13/15 [History] Magnesium Oxide [Magnesium] 400 mg PO QAM 05/13/15 [History] Pravastatin Sodium [Pravachol] 40 mg PO QPM 05/13/15 [History] Sotalol [Betapace] 80 mg PO BID 05/13/15 [History] Aspirin 81 mg PO DAILY 09/02/16 [History] Diltiazem HCl [Diltiazem 24Hr Cd] 180 mg PO BID 09/02/16 [History] Glimepiride [Amaryl] 2 mg PO QPM 09/02/16 [History] Potassium Chloride [Klor-Con 10] 20 meq PO DAILY 09/02/16 [History] Bisacodyl [Dulcolax] 10 mg RC DAILY PRN 04/13/17 [History] Docusate Sodium [Stool Softener] 100 mg PO DAILY PRN 04/13/17 [History] Famotidine [Pepcid] 20 mg PO DAILY 04/13/17 [History] Ipratropium/Albuterol Neb [Duoneb] 3 ml IH Q6HR PRN 04/13/17 [History] Guaifenesin [Mucinex] 1,200 mg PO BID PRN 04/14/17 [History] Apixaban [Eliquis] 2.5 mg PO BID #60 tablet 07/04/17 [Rx] Ferrous Sulfate 325 mg PO DAILY 07/04/17 [History] Carboxymethylcellulos/Glycerin [Refresh Optive Eye Drops] 1 drop BOTH EYES QID PRN 09/04/17 [History] Insulin ASPART [NovoLOG] 6 unit SQ BID 09/04/17 [History] Insulin DETEMIR [Levemir] 28 unit SQ BID 09/04/17 [History] Oxycodone HCl [Oxaydo] 5 mg PO Q4HR PRN 09/04/17 [History] ALPRAZolam [Xanax 0.5 MG Tablet] 0.25 mg PO HS PRN 30 Days #30 tablet 09/05/17 [ Rx] Cyanocobalamin (Vitamin B-12) [B-12] 1,000 mcg PO DAILY #90 tablet.er 09/05/17 [ Rx] Ergocalciferol (VITAMIN D2) [Drisdol (50,000 Unit)] 50,000 unit PO QWEEK #12 capsule 09/05/17 [Rx] Hydrocortisone Acetate [Hemmorex-Hc] 30 mg RC PRN PRN #30 supp.rect 09/05/17 [Rx ] Sennosides/Docusate Sodium [Senna Plus] 1 each PO DAILY 90 Days #90 tablet 09/05 [Rx] Sertraline [Zoloft] 25 mg PO DAILY #30 tablet 09/05/17 [Rx] Thiamine HCl [Vitamin B-1] 200 mg PO DAILY #180 tablet 09/05/17 [Rx] hydrALAZINE [HydrALAZINE] 25 mg PO Q8HR PRN #90 tablet 09/05/17 [Rx] Allergies/Adverse Reactions: 3 Allergy/AdvReac Type Severity Reaction Status Date / Time naproxen [From Aleve] Allergy Mild Blister Verified 07/04/17 10:47 aspirin [ASA] Allergy See Verified 07/04/17 10:47 Comments ibuprofen AdvReac Mild Abdominal Verified 07/04/17 10:47 Pain metformin AdvReac See Verified 07/04/17 10:47 Comments Certification: Further, I certify that my clinical findings support that this patient is homebound (i.e. absences from home require considerable and taxing effort and are for medical reasons or cheondoism services or infrequently or short duration when for other reasons) because: Homebound Reason: Leaving home requires considerable and taxing effort due to condition Attestation: My signature below is to certify that this patient is under my care and that I, or nurse practitioner, or a physician's data analysis assistant working with me, has a face-to -face encounter with this patient.
--- NOTE | 2017-09-05 12:37 | Physician Discharge Referral ---
ExtendedCare Referral Info Provider in Charge after Transfer: PCP - Diagnosis (1) Bronchitis Priority: Secondary Status: Acute (2) Uncontrolled hypertension Priority: Primary Status: Acute (3) Atrial fibrillation Priority: Secondary Status: Chronic (4) DVT prophylaxis Priority: Secondary Status: Acute (5) Anxiety Priority: Secondary Status: Acute (6) Bleeding hemorrhoid Priority: Primary Status: Acute (7) Constipation Priority: Primary Status: Acute Prognosis: Good Aware of Diagnosis: Patient - Transfer Medications Prescriptions: hydrALAZINE [HydrALAZINE] 25 mg PO Q8HR PRN #90 tablet PRN Reason: Increased Blood Pressure ALPRAZolam [Xanax 0.5 MG Tablet] 0.25 mg PO HS PRN 30 Days #30 tablet PRN Reason: Anxiety Cyanocobalamin (Vitamin B-12) [B-12] 1,000 mcg PO DAILY #90 tablet.er Ergocalciferol (VITAMIN D2) [Drisdol (50,000 Unit)] 50,000 unit PO QWEEK #12 capsule Hydrocortisone Acetate [Hemmorex-Hc] 30 mg RC PRN PRN #30 supp.rect PRN Reason: Hemorrhoids Sennosides/Docusate Sodium [Senna Plus] 1 each PO DAILY 90 Days #90 tablet Sertraline [Zoloft] 25 mg PO DAILY #30 tablet Thiamine HCl [Vitamin B-1] 200 mg PO DAILY #180 tablet Home Medications: Calcium Carbonate/Vitamin D3 [Calcium 500-Vit D3 400 Tablet] 1 each PO DAILY [History] Furosemide [Lasix] 40 mg PO QAM 05/13/15 [History] Gabapentin [Neurontin] 300 mg PO BID 05/13/15 [History] Glimepiride [Amaryl] 4 mg PO QAM 05/13/15 [History] Glucosamine HCl/Chondr Mcghee A Na [Cvs Glucosamine-Chondr Caplet] 1 each PO QPM [History] Losartan [Cozaar] 50 mg PO BID 05/13/15 [History] Magnesium Oxide [Magnesium] 400 mg PO QAM 05/13/15 [History] Pravastatin Sodium [Pravachol] 40 mg PO QPM 05/13/15 [History] Sotalol [Betapace] 80 mg PO BID 05/13/15 [History] Aspirin 81 mg PO DAILY 06/15/17 [History] Diltiazem HCl [Diltiazem 24Hr Cd] 180 mg PO BID 09/02/16 [History] Glimepiride [Amaryl] 2 mg PO QPM 09/02/16 [History] Potassium Chloride [Klor-Con 10] 20 meq PO DAILY 09/02/16 [History] Bisacodyl [Dulcolax] 10 mg RC DAILY PRN 04/13/17 [History] Docusate Sodium [Stool Softener] 100 mg PO DAILY PRN 04/13/17 [History] Famotidine [Pepcid] 20 mg PO DAILY 04/13/17 [History] Ipratropium/Albuterol Neb [Duoneb] 3 ml IH Q6HR PRN 04/13/17 [History] Guaifenesin [Mucinex] 1,200 mg PO BID PRN 04/14/17 [History] Apixaban [Eliquis] 2.5 mg PO BID #60 tablet 07/04/17 [Rx] Ferrous Sulfate 325 mg PO DAILY 07/04/17 [History] Carboxymethylcellulos/Glycerin [Refresh Optive Eye Drops] 1 drop BOTH EYES QID PRN 09/04/17 [History] Insulin ASPART [NovoLOG] 6 unit SQ BID 09/04/17 [History] Insulin DETEMIR [Levemir] 28 unit SQ BID 09/04/17 [History] Oxycodone HCl [Oxaydo] 5 mg PO Q4HR PRN 09/04/17 [History] ALPRAZolam [Xanax 0.5 MG Tablet] 0.25 mg PO HS PRN 30 Days #30 tablet 09/05/17 [ Rx] Cyanocobalamin (Vitamin B-12) [B-12] 1,000 mcg PO DAILY #90 tablet.er 09/05/17 [ Rx] Ergocalciferol (VITAMIN D2) [Drisdol (50,000 Unit)] 50,000 unit PO QWEEK #12 capsule 09/05/17 [Rx] Hydrocortisone Acetate [Hemmorex-Hc] 30 mg RC PRN PRN #30 supp.rect 09/05/17 [Rx ] Sennosides/Docusate Sodium [Senna Plus] 1 each PO DAILY 90 Days #90 tablet 09/05 [Rx] Sertraline [Zoloft] 25 mg PO DAILY #30 tablet 09/05/17 [Rx] Thiamine HCl [Vitamin B-1] 200 mg PO DAILY #180 tablet 09/05/17 [Rx] hydrALAZINE [HydrALAZINE] 25 mg PO Q8HR PRN #90 tablet 09/05/17 [Rx] Allergies/Adverse Reactions: 3 Allergy/AdvReac Type Severity Reaction Status Date / Time naproxen [From Aleve] Allergy Mild Blister Verified 07/04/17 10:47 aspirin [ASA] Allergy See Verified 07/04/17 10:47 Comments ibuprofen AdvReac Mild Abdominal Verified 07/04/17 10:47 Pain metformin AdvReac See Verified 07/04/17 10:47 Comments - Respiratory Orders Smoking Cessation: Smoking cessation has been advised. For more information, call the [place] [employer] Quit Line at 9-524-WJNA-NOW. - Mobility Orders Ambulate - Rehabiliation Orders Rehab Potential: Good Rehab Orders: Evaluation for Physical Therapy, Evaluation for Occupational Therapy CERTIFICATION: I certify that the transfer of the above named patient to an assisted care facility is necessary for the continuing treatment of the diagnosis listed. The above information is true and accurate reflection of patient's current condition. Need close monitoring of her vital signs and bowel movement, monitor for any further bleeding from her hemorrhoid Confidential - Redisclosure prohibited without a patient's written consent.
== END 2017-09-05 15:14 | DRG 305 ==
LOC: EMEROO 18:19 → 2NENU 18:19
PROVIDERS: ADMIT Family Medicine; ATTEND Pediatrics

== ENCOUNTER 2017-11-28 10:58 | Observation (INO) ==
[2017-11-28] MEDS ORDERED: Nitroglycerin 0.4 MG TAB.SUBL SL ONE (11:16)
[2017-11-28] MEDS ORDERED: 0.9 % Sodium Chloride 500 ML IVC ONE (11:18)
[2017-11-28] MEDS ORDERED: Isovue-370 500 ML INFUS..BTL IV ONE (11:18)
--- NOTE | 2017-11-28 11:21 | Emergency Department Note ---
Disposition Clinical Impression: Chest pain Qualifiers: Chest pain type: unspecified Qualified Code(s): R07.9 - Chest pain, unspecified Disposition: Admitted As Inpatient Referrals: NONE,PCP [Primary Care Provider] - Forms: ED Satisfaction Letter, Work/School Release General Adult HPI - General Chief complaint: ED General Medical Stated complaint: R side rib pain Time Seen by Provider: 11/28/17 11:05 Source: EMS Mode of arrival: EMS Limitations: physical limitation Nursing Notes Reviewed: Yes Vital Signs Reviewed: Yes - History of Present Illness HPI Narrative: 87-year-old female history of diabetes, hypertension, A. fib on Xarelto presents for evaluation of right-sided rib pain". Patient states symptom onset is been approximately week. Patient notes worsening pain over the past 2 days. Denies any specific aggravating or alleviating factors. States is been intermittent. Notes it to be on the right side with radiation to the back. Patient does state she has a history of remote rib fracture couple years ago but denies any recent trauma. Patient denies a nausea or vomiting. Patient does note some dyspnea. No fevers or cough. Patient denies a history of heart attacks. Pain Scale: 0 - Related Data Home Medications Medication Instructions Recorded Confirmed Calcium Carbonate/Vitamin D3 1 each PO DAILY 05/13/15 11/28/17 [Calcium 500-Vit D3 400 Tablet] Furosemide [Lasix] 40 mg PO QAM 05/13/15 11/28/17 Gabapentin [Neurontin] 300 mg PO BID 05/13/15 11/28/17 Glucosamine HCl/Chondr Mcghee A Na 1 each PO QPM 05/13/15 11/28/17 [Cvs Glucosamine-Chondr Caplet] Losartan [Cozaar] 50 mg PO BID 05/13/15 11/28/17 Magnesium Oxide [Magnesium] 400 mg PO QAM 05/13/15 11/28/17 Pravastatin Sodium [Pravachol] 40 mg PO QPM 05/13/15 11/28/17 Sotalol [Betapace] 80 mg PO BID 05/13/15 11/28/17 Aspirin 81 mg PO DAILY 09/02/16 11/28/17 Diltiazem HCl [Diltiazem 24Hr Cd] 180 mg PO BID 09/02/16 11/28/17 Potassium Chloride [Klor-Con 10] 20 meq PO DAILY 09/02/16 11/28/17 Bisacodyl [Dulcolax] 10 mg RC DAILY PRN 04/13/17 11/28/17 Docusate Sodium [Stool Softener] 100 mg PO DAILY PRN 04/13/17 11/28/17 Famotidine [Pepcid] 20 mg PO DAILY 04/13/17 11/28/17 Ipratropium/Albuterol Neb [Duoneb] 3 ml IH Q6HR PRN 04/13/17 11/28/17 Guaifenesin [Mucinex] 1,200 mg PO BID PRN 04/14/17 11/28/17 Ferrous Sulfate 325 mg PO DAILY 07/04/17 11/28/17 Carboxymethylcellulos/Glycerin 1 drop BOTH EYES QID PRN 09/04/17 11/28/17 [Refresh Optive Eye Drops] Insulin ASPART [NovoLOG] 6 unit SQ BID 09/04/17 11/28/17 Insulin DETEMIR [Levemir] 28 unit SQ BID 09/04/17 11/28/17 Oxycodone HCl [Oxaydo] 5 mg PO Q4HR PRN 09/04/17 11/28/17 Famotidine [Pepcid] 20 mg PO DAILY 11/28/17 11/28/17 Ondansetron HCl [Zofran] 4 mg PO Q6H 11/28/17 11/28/17 Previous Rx's Medication Instructions Recorded Apixaban [Eliquis] 2.5 mg PO BID #60 tablet 07/04/17 ALPRAZolam [Xanax 0.5 MG Tablet] 0.25 mg PO HS PRN 30 Days #30 09/05/17 tablet Cyanocobalamin (Vitamin B-12) 1,000 mcg PO DAILY #90 tablet.er 09/05/17 [B-12] Ergocalciferol (VITAMIN D2) 50,000 unit PO QWEEK #12 capsule 09/05/17 [Drisdol (50,000 Unit)] Sennosides/Docusate Sodium [Senna 1 each PO DAILY 90 Days #90 tablet 09/05/17 Plus] Sertraline [Zoloft] 25 mg PO DAILY #30 tablet 09/05/17 Thiamine HCl [Vitamin B-1] 200 mg PO DAILY #180 tablet 09/05/17 hydrALAZINE [HydrALAZINE] 25 mg PO Q8HR PRN #90 tablet 09/05/17 Allergies Allergy/AdvReac Type Severity Reaction Status Date / Time naproxen [From Aleve] Allergy Mild Blister Verified 07/04/17 10:47 aspirin [ASA] Allergy See Verified 07/04/17 10:47 Comments ibuprofen AdvReac Mild Abdominal Verified 07/04/17 10:47 Pain metformin AdvReac See Verified 07/04/17 10:47 Comments All systems ED: reviewed and negative except as stated. Constitutional: Denies: fever Cardiovascular: Reports: chest pain Respiratory: Reports: dyspnea. Denies: cough Gastrointestinal: Denies: abdominal pain, nausea, vomiting Past Medical History - Past Medical History Source: patient Medical history: Reports: atrial fibrillation, DVT, diabetes, GI bleed, hyperlipidemia, hypertension, pulmonary embolus, renal disease, thyroid disease , other Surgical history: Reports: appendectomy, cholecystectomy, herniorrhaphy, hysterectomy, orthopedic, other, pacemaker/AICD Psychiatric history: Reports: anxiety, depression INTERIOR HORTICULTURIST history: Reports: no INTERIOR HORTICULTURIST history, other - Social History Smoking Status: Never smoker Smokeless Tobacco Status: No Alcohol use: Reports: none Drug use: Reports: none Physical Exam - General Limitations: physical limitation General appearance: alert, in no apparent distress, obese - Head Head exam: atraumatic, normocephalic, normal inspection - Eye Eye exam: Present: normal appearance, PERRL, EOMI - ENT ENT exam: normal exam - Neck Neck exam: Present: normal inspection - Chest Chest inspection: Present: normal inspection, symmetric chest wall rise. Absent : tenderness - Respiratory Respiratory exam: Present: other (Diffusely diminished). Absent: respiratory distress - Cardiovascular Cardiovascular exam: Present: regular rate, normal rhythm. Absent: systolic murmur - Abdominal Exam Abdominal exam: Present: soft, Non-Tender - Extremities Exam Extremities exam: Present: normal inspection. Absent: pedal edema - Back Exam Back exam: Present: normal inspection. Absent: tenderness, CVA tenderness (R), CVA tenderness (L) - Neurological Exam Neurological exam: Present: alert, oriented X3 - Skin Skin exam: Present: warm, dry, intact, normal color. Absent: rash Course - Reevaluation(s) Reevaluation #1: Patient seen and examined. Patient's resting comfortably. No acute distress. Time: 13:59 Vital Signs Temperature 97.9 F 11/28/17 11:01 Pulse Rate 79 11/28/17 11:01 Respiratory Rate 16 11/28/17 11:01 Blood Pressure 167/62 11/28/17 11:01 O2 Sat by Pulse Oximetry 95 11/28/17 11:01 Temperature 97.9 F 11/28/17 11:01 Pulse Rate 61 11/28/17 14:01 Respiratory Rate 18 11/28/17 14:01 Blood Pressure 165/53 11/28/17 14:01 O2 Sat by Pulse Oximetry 93 11/28/17 14:01 Oxygen Delivery Oxygen Delivery Room Air Medical Decision Making - MDM Narrative Medical decision making narrative: Patient presented for atraumatic right sided rib pain". Patient's exam does not reveal any external rashes or signs of trauma. Patient age and comorbidities prompted ACS evaluation as well as aortic pathology. Patient did get basic labs as well as a CT angios of the chest which showed dilation of the thoracic aorta which is unchanged. Patient is on Xarelto for A. fib. Patient' s troponin was negative. Lab work is otherwise unremarkable. Patient will be admitted to the hospital service for further evaluation and monitoring of her chest pain. Patient was describing some intermittently reproducible pain with movement however that was not consistent throughout several evaluations. - Lab Data Lab results reviewed: Yes I reviewed the patient's lab results. Result diagrams: 11/28/17 11:25 11/28/17 11:25 Lab Results 11/28/17 11/28/17 11/28/17 Range/Units 11:25 11:25 11:25 WBC (4.3-11.1) K/mcL RBC (3.82-4.97) M/mcL Hgb (11.5-15.4) g/dL Hct (35.3-44.9) % MCV (83.0-100.0) fL MCH (28.0-33.3) pg MCHC (31.6-35.5) g/dL RDW (11.5-14.5) % Plt Count (140-400) K/mcL MPV (9.4-12.4) fL Immature Gran % (0-4) % Seg Neutrophils % % Lymphocytes % % Monocytes % % Eosinophils % % Basophils % % Neutrophils # (1.6-8.9) K/mcL Lymphocytes # (0.6-4.6) K/mcL Monocytes # (0.0-1.3) K/mcL Eosinophils # (0.0-0.6) K/mcL Basophils # (0.0-0.2) K/mcL PT 13.4 H (9.4-12.1) Seconds INR 1.2 APTT 32.2 (26.0-36.0) Seconds Sodium (136-145) mEq/L Potassium (3.5-5.1) mEq/L Chloride (98-107) mEq/L Carbon Dioxide (23-29) mEq/L BUN (8-23) mg/dL Creatinine (0.60-1.20) mg/dL Est GFR ( Amer) (> 60) Est GFR (Non-Af Amer) (> 60) BUN/Creatinine Ratio (6-26) Glucose (70-105) mg/dL Calculated Osmolality (280-300) Calcium (8.6-10.3) mg/dL Total Bilirubin (0.3-1.0) mg/dL Direct Bilirubin (0.0-0.2) mg/dL Indirect Bilirubin (0.0-1.2) mg/dL AST (13-39) Units/L ALT (7-52) Units/L Alkaline Phosphatase (34-104) Units/L Troponin I (< 0.04) ng/mL B-Natriuretic Peptide 119 H (Less than 100) pg/mL Serum Total Protein (6.4-8.9) g/dL Albumin (3.5-5.7) g/dL Globulin (2.4-3.5) g/dL Albumin/Globulin Ratio (1.1-2.2) Lipase 43 (11-82) Units/L 11/28/17 11/28/17 Range/Units 11:25 11:25 WBC 9.2 (4.3-11.1) K/mcL RBC 4.10 (3.82-4.97) M/mcL Hgb 13.0 (11.5-15.4) g/dL Hct 40.4 (35.3-44.9) % MCV 98.5 (83.0-100.0) fL MCH 31.7 (28.0-33.3) pg MCHC 32.2 (31.6-35.5) g/dL RDW 12.2 (11.5-14.5) % Plt Count 191 (140-400) K/mcL MPV 11.5 (9.4-12.4) fL Immature Gran % 0.2 (0-4) % Seg Neutrophils % 69.0 % Lymphocytes % 19.9 % Monocytes % 8.1 % Eosinophils % 2.4 % Basophils % 0.4 % Neutrophils # 6.3 (1.6-8.9) K/mcL Lymphocytes # 1.8 (0.6-4.6) K/mcL Monocytes # 0.7 (0.0-1.3) K/mcL Eosinophils # 0.2 (0.0-0.6) K/mcL Basophils # 0.0 (0.0-0.2) K/mcL PT (9.4-12.1) Seconds INR APTT (26.0-36.0) Seconds Sodium 136 (136-145) mEq/L Potassium 3.8 (3.5-5.1) mEq/L Chloride 100 (98-107) mEq/L Carbon Dioxide 30 H (23-29) mEq/L BUN 23 (8-23) mg/dL Creatinine 1.17 (0.60-1.20) mg/dL Est GFR ( Amer) 53 L (> 60) Est GFR (Non-Af Amer) 44 L (> 60) BUN/Creatinine Ratio 20 (6-26) Glucose 338 H (70-105) mg/dL Calculated Osmolality 299 (280-300) Calcium 9.2 (8.6-10.3) mg/dL Total Bilirubin 0.5 (0.3-1.0) mg/dL Direct Bilirubin 0.1 (0.0-0.2) mg/dL Indirect Bilirubin 0.4 (0.0-1.2) mg/dL AST 13 (13-39) Units/L ALT 11 (7-52) Units/L Alkaline Phosphatase 74 (34-104) Units/L Troponin I < 0.03 (< 0.04) ng/mL B-Natriuretic Peptide (Less than 100) pg/mL Serum Total Protein 6.4 (6.4-8.9) g/dL Albumin 3.4 L (3.5-5.7) g/dL Globulin 3.0 (2.4-3.5) g/dL Albumin/Globulin Ratio 1.1 (1.1-2.2) Lipase (11-82) Units/L - Radiology Data Radiology results reviewed: Yes I reviewed the patient's radiology results. Chest X-Ray 11/28/17 11:16 IMPRESSION: 1. Enlarged pulmonary artery, ectasia of the descending thoracic aorta, stable. 2. No acute cardiopulmonary disease. D/ / 11/28/2017 12:46:43 Mark Storey MD / [facility] Interpreting Provider: Mark Storey MD Chest CTA 11/28/17 11:18 IMPRESSION: 1. No evidence of acute pulmonary embolism or parenchymal lung infiltrate. 2. 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 3. Atherosclerotic disease. D/ / Mark Storey MD / Mark Storey MD Interpreting Provider: Mark Storey MD - EKG Data EKG #1 EKG attestation: Yes I reviewed and interpreted this EKG. EKG results narrative: Ventricular paced rhythm at a rate of 63. No signs of excessive discordance or Sgarbossa criteria. Left axis. S.B.A.RMariela - Audra.B.AFina Situation: Demographics Background: Presenting Complaint Assessment: Vital Signs, Course and respsone to treatment, Patient/Family Expectation Recommendation: Barrier(s) to disposition, Recommendation based on pending studies, treatments, or consults S.B.AFina Report Given to: Dr. Deja Abbott Repor Time: 14:12
[2017-11-28 11:48] LABS: Basophils % 0.4 %; Eosinophils # 0.2 K/mcL (0.0-0.6); Eosinophils % 2.4 %; Hematocrit 40.4 % (35.3-44.9); Immature Granulocytes % 0.2 % (0-4); Lymphocytes # 1.8 K/mcL (0.6-4.6); Lymphocytes % 19.9 %; Mean Corpuscular HGB Conc 32.2 g/dL (31.6-35.5); Mean Corpuscular Hemoglobin 31.7 pg (28.0-33.3); Mean Corpuscular Volume 98.5 fL (83.0-100.0); Mean Platelet Volume 11.5 fL (9.4-12.4); Monocytes # 0.7 K/mcL (0.0-1.3); Monocytes % 8.1 %; Neutrophils # 6.3 K/mcL (1.6-8.9); Platelet Count 191 K/mcL (140-400); Red Cell Distribution Width 12.2 % (11.5-14.5)
[2017-11-28 11:53] LABS: INR 1.2; Prothrombin Time 13.4 Seconds (9.4-12.1)
[2017-11-28 11:55] LABS: Activated Partial Thrombo Time 32.2 Seconds (26.0-36.0)
[2017-11-28 12:08] LABS: Alanine Aminotransferase 11 Units/L (7-52); Albumin 3.4 g/dL (3.5-5.7); Albumin/Globulin Ratio 1.1 (1.1-2.2); Alkaline Phosphatase 74 Units/L (34-104); Aspartate Amino Transferase 13 Units/L (13-39); Bilirubin,Direct 0.1 mg/dL (0.0-0.2); Bilirubin,Indirect 0.4 mg/dL (0.0-1.2); Bilirubin,Total 0.5 mg/dL (0.3-1.0); Calcium 9.2 mg/dL (8.6-10.3); Carbon Dioxide 30 mEq/L (23-29); Chloride 100 mEq/L (98-107); Glucose 338 mg/dL (70-105); Potassium 3.8 mEq/L (3.5-5.1); Sodium 136 mEq/L (136-145); Total Protein 6.4 g/dL (6.4-8.9); Troponin I < 0.03 ng/mL (< 0.04); eGFR For Non-African Americans 44 (> 60)
--- NOTE | 2017-11-28 12:58 | Emergency Department Note ---
Disposition Clinical Impression: Chest pain Qualifiers: Chest pain type: unspecified Qualified Code(s): R07.9 - Chest pain, unspecified Disposition: Admitted As Inpatient Referrals: NONE,PCP [Primary Care Provider] - Forms: ED Satisfaction Letter, Work/School Release General Adult HPI - General Chief complaint: ED General Medical Stated complaint: R side rib pain Time Seen by Provider: 11/28/17 11:05 Source: EMS Mode of arrival: EMS Limitations: physical limitation - History of Present Illness Pain Scale: 0 - Related Data Home Medications Medication Instructions Recorded Confirmed Calcium Carbonate/Vitamin D3 1 each PO DAILY 05/13/15 09/04/17 [Calcium 500-Vit D3 400 Tablet] Furosemide [Lasix] 40 mg PO QAM 05/13/15 09/04/17 Gabapentin [Neurontin] 300 mg PO BID 05/13/15 09/04/17 Glimepiride [Amaryl] 4 mg PO QAM 05/13/15 09/04/17 Glucosamine HCl/Chondr Mcghee A Na 1 each PO QPM 05/13/15 09/04/17 [Cvs Glucosamine-Chondr Caplet] Losartan [Cozaar] 50 mg PO BID 05/13/15 09/04/17 Magnesium Oxide [Magnesium] 400 mg PO QAM 05/13/15 09/04/17 Pravastatin Sodium [Pravachol] 40 mg PO QPM 05/13/15 09/04/17 Sotalol [Betapace] 80 mg PO BID 05/13/15 09/04/17 Aspirin 81 mg PO DAILY 09/02/16 09/04/17 Diltiazem HCl [Diltiazem 24Hr Cd] 180 mg PO BID 09/02/16 09/04/17 Glimepiride [Amaryl] 2 mg PO QPM 09/02/16 09/04/17 Potassium Chloride [Klor-Con 10] 20 meq PO DAILY 09/02/16 09/04/17 Bisacodyl [Dulcolax] 10 mg RC DAILY PRN 04/13/17 09/04/17 Docusate Sodium [Stool Softener] 100 mg PO DAILY PRN 04/13/17 09/04/17 Famotidine [Pepcid] 20 mg PO DAILY 04/13/17 09/04/17 Ipratropium/Albuterol Neb [Duoneb] 3 ml IH Q6HR PRN 04/13/17 09/04/17 Guaifenesin [Mucinex] 1,200 mg PO BID PRN 04/14/17 09/04/17 Ferrous Sulfate 325 mg PO DAILY 07/04/17 09/04/17 Carboxymethylcellulos/Glycerin 1 drop BOTH EYES QID PRN 09/04/17 09/04/17 [Refresh Optive Eye Drops] Insulin ASPART [NovoLOG] 6 unit SQ BID 09/04/17 09/04/17 Insulin DETEMIR [Levemir] 28 unit SQ BID 09/04/17 09/04/17 Oxycodone HCl [Oxaydo] 5 mg PO Q4HR PRN 09/04/17 09/04/17 Previous Rx's Medication Instructions Recorded Apixaban [Eliquis] 2.5 mg PO BID #60 tablet 07/04/17 ALPRAZolam [Xanax 0.5 MG Tablet] 0.25 mg PO HS PRN 30 Days #30 09/05/17 tablet Cyanocobalamin (Vitamin B-12) 1,000 mcg PO DAILY #90 tablet.er 09/05/17 [B-12] Ergocalciferol (VITAMIN D2) 50,000 unit PO QWEEK #12 capsule 09/05/17 [Drisdol (50,000 Unit)] Hydrocortisone Acetate 30 mg RC PRN PRN #30 supp.rect 09/05/17 [Hemmorex-Hc] Sennosides/Docusate Sodium [Senna 1 each PO DAILY 90 Days #90 tablet 09/05/17 Plus] Sertraline [Zoloft] 25 mg PO DAILY #30 tablet 09/05/17 Thiamine HCl [Vitamin B-1] 200 mg PO DAILY #180 tablet 09/05/17 hydrALAZINE [HydrALAZINE] 25 mg PO Q8HR PRN #90 tablet 09/05/17 Allergies Allergy/AdvReac Type Severity Reaction Status Date / Time naproxen [From Aleve] Allergy Mild Blister Verified 07/04/17 10:47 aspirin [ASA] Allergy See Verified 07/04/17 10:47 Comments ibuprofen AdvReac Mild Abdominal Verified 07/04/17 10:47 Pain metformin AdvReac See Verified 07/04/17 10:47 Comments Constitutional: Denies: fever Cardiovascular: Reports: chest pain Respiratory: Reports: dyspnea. 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: no ASSISTANT PRODUCER history, other - Social History Smoking Status: Never smoker Smokeless Tobacco Status: No Alcohol use: Reports: none Drug use: Reports: none Physical Exam - General Limitations: physical limitation General appearance: alert, in no apparent distress, obese Course Vital Signs Temperature 97.9 F 11/28/17 11:01 Pulse Rate 79 11/28/17 11:01 Respiratory Rate 16 11/28/17 11:01 Blood Pressure 167/62 11/28/17 11:01 O2 Sat by Pulse Oximetry 95 11/28/17 11:01 Temperature 97.9 F 11/28/17 11:01 Pulse Rate 79 11/28/17 11:01 Respiratory Rate 16 11/28/17 11:01 Blood Pressure 167/62 11/28/17 11:01 O2 Sat by Pulse Oximetry 95 11/28/17 11:01 Oxygen Delivery Oxygen Delivery Room Air Medical Decision Making - Lab Data Result diagrams: 11/28/17 11:25 11/28/17 11:25 Lab Results 11/28/17 11/28/17 11/28/17 Range/Units 11:25 11:25 11:25 WBC (4.3-11.1) K/mcL RBC (3.82-4.97) M/mcL Hgb (11.5-15.4) g/dL Hct (35.3-44.9) % MCV (83.0-100.0) fL MCH (28.0-33.3) pg MCHC (31.6-35.5) g/dL RDW (11.5-14.5) % Plt Count (140-400) K/mcL MPV (9.4-12.4) fL Immature Gran % (0-4) % Seg Neutrophils % % Lymphocytes % % Monocytes % % Eosinophils % % Basophils % % Neutrophils # (1.6-8.9) K/mcL Lymphocytes # (0.6-4.6) K/mcL Monocytes # (0.0-1.3) K/mcL Eosinophils # (0.0-0.6) K/mcL Basophils # (0.0-0.2) K/mcL PT 13.4 H (9.4-12.1) Seconds INR 1.2 APTT 32.2 (26.0-36.0) Seconds Sodium (136-145) mEq/L Potassium (3.5-5.1) mEq/L Chloride (98-107) mEq/L Carbon Dioxide (23-29) mEq/L Creatinine (0.60-1.20) mg/dL Est GFR ( Amer) (> 60) Est GFR (Non-Af Amer) (> 60) Glucose (70-105) mg/dL Calcium (8.6-10.3) mg/dL Total Bilirubin (0.3-1.0) mg/dL Direct Bilirubin (0.0-0.2) mg/dL Indirect Bilirubin (0.0-1.2) mg/dL AST (13-39) Units/L ALT (7-52) Units/L Alkaline Phosphatase (34-104) Units/L Troponin I (< 0.04) ng/mL B-Natriuretic Peptide 119 H (Less than 100) pg/mL Serum Total Protein (6.4-8.9) g/dL Albumin (3.5-5.7) g/dL Globulin (2.4-3.5) g/dL Albumin/Globulin Ratio (1.1-2.2) Lipase 43 (11-82) Units/L 11/28/17 11/28/17 Range/Units 11:25 11:25 WBC 9.2 (4.3-11.1) K/mcL RBC 4.10 (3.82-4.97) M/mcL Hgb 13.0 (11.5-15.4) g/dL Hct 40.4 (35.3-44.9) % MCV 98.5 (83.0-100.0) fL MCH 31.7 (28.0-33.3) pg MCHC 32.2 (31.6-35.5) g/dL RDW 12.2 (11.5-14.5) % Plt Count 191 (140-400) K/mcL MPV 11.5 (9.4-12.4) fL Immature Gran % 0.2 (0-4) % Seg Neutrophils % 69.0 % Lymphocytes % 19.9 % Monocytes % 8.1 % Eosinophils % 2.4 % Basophils % 0.4 % Neutrophils # 6.3 (1.6-8.9) K/mcL Lymphocytes # 1.8 (0.6-4.6) K/mcL Monocytes # 0.7 (0.0-1.3) K/mcL Eosinophils # 0.2 (0.0-0.6) K/mcL Basophils # 0.0 (0.0-0.2) K/mcL PT (9.4-12.1) Seconds INR APTT (26.0-36.0) Seconds Sodium 136 (136-145) mEq/L Potassium 3.8 (3.5-5.1) mEq/L Chloride 100 (98-107) mEq/L Carbon Dioxide 30 H (23-29) mEq/L Creatinine 1.17 (0.60-1.20) mg/dL Est GFR ( Amer) 53 L (> 60) Est GFR (Non-Af Amer) 44 L (> 60) Glucose 338 H (70-105) mg/dL Calcium 9.2 (8.6-10.3) mg/dL Total Bilirubin 0.5 (0.3-1.0) mg/dL Direct Bilirubin 0.1 (0.0-0.2) mg/dL Indirect Bilirubin 0.4 (0.0-1.2) mg/dL AST 13 (13-39) Units/L ALT 11 (7-52) Units/L Alkaline Phosphatase 74 (34-104) Units/L Troponin I < 0.03 (< 0.04) ng/mL B-Natriuretic Peptide (Less than 100) pg/mL Serum Total Protein 6.4 (6.4-8.9) g/dL Albumin 3.4 L (3.5-5.7) g/dL Globulin 3.0 (2.4-3.5) g/dL Albumin/Globulin Ratio 1.1 (1.1-2.2) Lipase (11-82) Units/L Attestation Statement - Attestation Attestation: I examined this patient and my medical decision-making was reviewed with the Resident Physician. I agree with the documented findings, disposition and treatment plan as described except to the extent set forth below. 87 year old female from [facility] has been experincing chest pin on the right side more specifially with her ribs but has risk factors for ACS. We will do the cardiopulmonary workup and treat with ASA and then ryan admit to medicine for ACS rule out
[2017-11-28 13:12] LABS: BUN/Creatinine Ratio 20 (6-26); Blood Urea Nitrogen 23 mg/dL (8-23); Osmolality,Calculated 299 (280-300)
[2017-11-28] MEDS ORDERED: Ondansetron ODT 4 MG TAB.RAPDIS PO PRN (14:29)
[2017-11-28] MEDS ORDERED: ALPRAZolam 0.25 MG TABLET PO PRN (14:29)
[2017-11-28] MEDS ORDERED: hydrALAZINE 25 MG TABLET PO PRN (14:29)
[2017-11-28] MEDS ORDERED: Bisacodyl 10 MG RECTAL SUPPOSITORY RC PRN (14:29)
[2017-11-28] MEDS ORDERED: Artificial Tears SOLN 15 ML BOTTLE BOTH EYES PRN (14:29)
[2017-11-28] MEDS ORDERED: *HR* OxyCODONE Immed Rel 5 MG TABLET PO PRN (14:29)
[2017-11-28] MEDS ORDERED: Dextrose Gel 15 GM/37.5 ML TUBE PO PRN ×2 (14:40)
[2017-11-28] MEDS ORDERED: *HR* Dextrose 50 % in Water (Syg) 50 ML SYRINGE IVP PRN (14:40)
[2017-11-28] MEDS ORDERED: D5% in Water 1,000 ML IVC PRN (14:40)
--- NOTE | 2017-11-28 14:43 | Internal Med History&Physical ---
Date of Encounter: 11/28/17 Time of Encounter: 14:41 Internal Medicine - H&P: HPI Chief complaint: Right rib pain Admitted From: Long-term Nursing Facility Plans for Post Hospital Care: Transfer [facility] History of present illness: Ms. De León is a 87 year old female who is a resident of a SNF and mostly bed bound who presented from SNF after having complained of Right sided chest wall pain. The patient reports having been started on therapy and developing Right sided anterior chest wall pain, right under her right breast . She denies radiation and the pain is not associated with respiration, nausea, shortness of breath , diaphoresis, palpitations or dizziness She reports the pain is exacerbated by movement of her R arm and usually occurs during therapy She has a PMH of CKD III, DM, HTN, DVT and PE on anticoagulation, Afib, COPD She denies changes in bowel or urinary habits, she does not have fever, chills or cough, She does not have a gall bladder and was not in distress at time of evaluation. She has thoracic aortic ectasias which is stable per CT imaging Work up in the ER was unremarkable, EKG was paced, she is DNR-CC Her chest pain is reproducible and I believe her chest pain is likely due to musculoskeletal pain or strain from therapy, we will obtain a rib series She will be placed on obs She is DNR-CC Past Med Surg Social Fam HX - Past Medical History Medical history: atrial fibrillation, DVT, diabetes, GI bleed, hyperlipidemia, hypertension, pulmonary embolus, renal disease, thyroid disease, other Additional medical history: pacemaker Psychiatric history: anxiety, depression - Past Surgical History Surgical History: appendectomy, cholecystectomy, herniorrhaphy, hysterectomy, orthopedic, other, pacemaker/AICD Additional surgical history: cardiac ablation, back surgery, benign tumors removed from bilateral breast, appendectomy, cholecystectomy, hysterectomy, hernia repair - Social History Smoking Status: Never smoker Smokeless Tobacco Status: No Alcohol use: none Drug use: none - Family History Father Living Status: Mother Living Status: Internal Medicine - H&P: Meds Calcium Carbonate/Vitamin D3 [Calcium 500-Vit D3 400 Tablet] 1 each PO DAILY [History] Furosemide [Lasix] 40 mg PO QAM 05/13/15 [History] Gabapentin [Neurontin] 300 mg PO BID 05/13/15 [History] Glucosamine HCl/Chondr Mcghee A Na [Cvs Glucosamine-Chondr Caplet] 1 each PO QPM [History] Losartan [Cozaar] 50 mg PO BID 05/13/15 [History] Magnesium Oxide [Magnesium] 400 mg PO QAM 05/13/15 [History] Pravastatin Sodium [Pravachol] 40 mg PO QPM 05/13/15 [History] Sotalol [Betapace] 80 mg PO BID 05/13/15 [History] Aspirin 81 mg PO DAILY 09/02/16 [History] Diltiazem HCl [Diltiazem 24Hr Cd] 180 mg PO BID 09/02/16 [History] Potassium Chloride [Klor-Con 10] 20 meq PO DAILY 09/02/16 [History] Bisacodyl [Dulcolax] 10 mg RC DAILY PRN 04/13/17 [History] Docusate Sodium [Stool Softener] 100 mg PO DAILY PRN 04/13/17 [History] Famotidine [Pepcid] 20 mg PO DAILY 04/13/17 [History] Ipratropium/Albuterol Neb [Duoneb] 3 ml IH Q6HR PRN 04/13/17 [History] Guaifenesin [Mucinex] 1,200 mg PO BID PRN 04/14/17 [History] Apixaban [Eliquis] 2.5 mg PO BID #60 tablet 07/04/17 [Rx] Ferrous Sulfate 325 mg PO DAILY 07/04/17 [History] Carboxymethylcellulos/Glycerin [Refresh Optive Eye Drops] 1 drop BOTH EYES QID PRN 09/04/17 [History] Insulin ASPART [NovoLOG] 6 unit SQ BID 09/04/17 [History] Insulin DETEMIR [Levemir] 28 unit SQ BID 09/04/17 [History] Oxycodone HCl [Oxaydo] 5 mg PO Q4HR PRN 09/04/17 [History] ALPRAZolam [Xanax 0.5 MG Tablet] 0.25 mg PO HS PRN 30 Days #30 tablet 09/05/17 [ Rx] Cyanocobalamin (Vitamin B-12) [B-12] 1,000 mcg PO DAILY #90 tablet.er 09/05/17 [ Rx] Ergocalciferol (VITAMIN D2) [Drisdol (50,000 Unit)] 50,000 unit PO QWEEK #12 capsule 09/05/17 [Rx] Sennosides/Docusate Sodium [Senna Plus] 1 each PO DAILY 90 Days #90 tablet 09/05 [Rx] Sertraline [Zoloft] 25 mg PO DAILY #30 tablet 09/05/17 [Rx] Thiamine HCl [Vitamin B-1] 200 mg PO DAILY #180 tablet 09/05/17 [Rx] hydrALAZINE [HydrALAZINE] 25 mg PO Q8HR PRN #90 tablet 09/05/17 [Rx] Famotidine [Pepcid] 20 mg PO DAILY 11/28/17 [History] Ondansetron HCl [Zofran] 4 mg PO Q6H 11/28/17 [History] 3 Allergy/AdvReac Type Severity Reaction Status Date / Time naproxen [From Aleve] Allergy Mild Blister Verified 07/04/17 10:47 aspirin [ASA] Allergy See Verified 07/04/17 10:47 Comments ibuprofen AdvReac Mild Abdominal Verified 07/04/17 10:47 Pain metformin AdvReac See Verified 07/04/17 10:47 Comments All Systems PM: A 10-system review of systems was performed and is negative for pertinent findings except as documented above in the HPI. - Constitutional Constitutional: as per HPI - EENT Eyes: as per HPI Ears: as per HPI Nose, mouth and throat: as per HPI - Cardiovascular Cardiovascular ROS IM: as per HPI - Respiratory Respiratory: as per HPI - Gastrointestinal Gastrointestinal: as per HPI - Genitourinary Genitourinary: as per HPI - Musculoskeletal Musculoskeletal ROS IM: as per HPI - Integumentary Integumentary IM: as per HPI - Neurological Neurological ROS: as per HPI - Hematologic/Lymphatic Hematologic/Lymphatic: as per HPI - Constitutional Vitals: Temp Pulse Resp BP Pulse Ox 97.9 F 61 18 165/53 93 11/28/17 11:01 11/28/17 14:01 11/28/17 14:01 11/28/17 14:01 11/28/17 14:01 General appearance: Present: A&O X 3, pleasant, no acute distress, obese Exam: see detailed exam below - Head Head exam: Present: atraumatic, normocephalic - Eye Eye exam: Present: PERRL, conjuntiva pink, sclera anicteric Pupils: Present: PERRL - Neck Neck exam general surgery: Present: supple, trachea midline. Absent: lymphadenopathy - Respiratory Respiratory exam: Present: chest wall tenderness, CTAB. Absent: accessory muscle use, rales, rhonchi, wheezes - Cardiovascular Cardiovascular exam: Present: irregular rhythm, +S1, +S2. Absent: diastolic murmur, gallop, rubs, systolic murmur - GI/Abdominal GI/Abdominal exam: Present: normal bowel sounds, soft, no peritoneal signs. Absent: distended, tenderness - Extremities Exam Extremities exam: Present: warm, radial pulses palpable and symmetrical. Absent : calf tenderness, cyanotic, pedal edema - Neurological Exam Neurological exam: Present: alert, CN II-XII intact, oriented X3, no focal deficits. Absent: pronater drift, facial droop, speech deficit - Skin Skin exam: Present: dry, intact Internal Med - H&P Results - Labs CBC & Chem 7: 11/28/17 11:25 11/28/17 11:25 - Assessment and plan (1) Chest pain Current Visit: Yes Status: Acute Assessment and plan: Likely musculoskeletal reproducible chest wall tenderness Obtain rib series CXR and CTA unremarkable for acute findings EKG is paced and trop negative Low suspicion for ACS, will cycle trops Qualifiers: Chest pain type: unspecified Qualified Code(s): R07.9 - Chest pain, unspecified (2) Anxiety Current Visit: Yes Status: Chronic Assessment and plan: continue home meds (3) Atrial fibrillation Current Visit: Yes Status: Chronic Assessment and plan: HR controlled Continue home meds and anticoagulation Qualifiers: Atrial fibrillation type: paroxysmal Qualified Code(s): I48.0 - Paroxysmal atrial fibrillation (4) CKD (chronic kidney disease) stage 3, GFR 30-59 ml/min Current Visit: Yes Status: Chronic Assessment and plan: renal function is stable at baseline (5) Diabetes mellitus, type 2 Current Visit: Yes Status: Chronic Assessment and plan: FS ACHS Insulin, ADA diet Qualifiers: Diabetes mellitus fpc insulin use: with fpc use Diabetes mellitus complication status: without complication Qualified Code(s): E11.9 - Type 2 diabetes mellitus without complications; Z79.4 - terminal makeup operator (current) use of insulin (6) DVT (deep venous thrombosis) Current Visit: Yes Status: Chronic Assessment and plan: on eliquis for afib and DVT/PE, continue same Qualifiers: DVT location: lower extremity Affected thrombotic vein of extremity: other lower extremity vein Chronicity: acute Laterality: left Qualified Code(s) : I82.492 - Acute embolism and thrombosis of other specified deep vein of left lower extremity (7) DVT prophylaxis Current Visit: Yes Status: Acute Assessment and plan: on eliquis (8) Essential hypertension Current Visit: Yes Status: Chronic (9) Physical deconditioning Current Visit: Yes Status: Chronic Assessment and plan: PTOT eval , bed bound , from SNF Fall precautions (10) Thoracic aortic aneurysm without rupture Current Visit: Yes Status: Chronic Assessment and plan: Stable per CT - Time Spent With Patient Total time spent is greater than 50% in coordination of care (as documented) at patient's floor/unit and/or counseling patient:
[2017-11-28] MEDS ORDERED: Ipratropium/Albuterol Neb 3 ML IH PRN (16:00)
[2017-11-28] MEDS ORDERED: (Glucosamine Hcl/Chondr Su A Na [Cvs Glucosamine-Chon PO SCH (18:00)
[2017-11-28] MEDS: Insulin LISPRO 300 UNITS/3 ML VIAL SQ SCH ×2 (18:31)
[2017-11-28] MEDS: Diltiazem CD (24hr) 180 MG CAPSULE PO SCH (20:00)
[2017-11-28] MEDS: Apixaban 2.5 MG TABLET PO SCH (20:00)
[2017-11-28] MEDS: Gabapentin 300 MG CAPSULE PO SCH (20:00)
[2017-11-28] MEDS ORDERED: Insulin LISPRO 300 UNITS/3 ML VIAL SQ SCH (21:00)
[2017-11-28] MEDS: Insulin DETEMIR 100 UNIT/ML X5UNITS SQ SCH (21:23)
--- NOTE | 2017-11-29 08:56 | Electrocardiograph Report ---
[place] [facility] Test Date: 2017-11-28 Pat Name: Edel De León Department: [id number] Room: 3B11 Gender: F Fire Hazard Inspector: : [id number] Requested By: Sigifredo Dennison Order Number: [id number] Reading MD: Jarod May Measurements Intervals [place] Rate: 63 P: 43 AR: 181 QRS: -63 QRSD: 169 T: 8 QT: 521 QTc: 534 Interpretive Statements Atrial-sensed ventricular-paced rhythm No further analysis attempted due to paced rhythm Electronically Signed On 11-29-2017 8:54:39 EDT by Jarod May
[2017-11-29] MEDS ORDERED: Famotidine 20 MG TABLET PO SCH (09:00)
[2017-11-29] MEDS ORDERED: Thiamine (B-1) 100 MG TABLET PO SCH (09:00)
[2017-11-29] MEDS ORDERED: Cholecalciferol (D-3) 1,000 UNIT TABLET PO SCH (09:00)
[2017-11-29] MEDS ORDERED: Aspirin 81 MG TAB.CHEW PO SCH (09:00)
[2017-11-29] MEDS ORDERED: NON-FORMULARY MEDICATION 1 EACH EACH (Calcium Carbonate/Vitamin D3 [Calcium 500-Vit D3 400 PO SCH (09:00)
[2017-11-29] MEDS ORDERED: Magnesium Oxide 400 MG TABLET PO SCH (09:00)
[2017-11-29] MEDS ORDERED: Sennosides/Docusate Sodium TABLET PO SCH (09:00)
[2017-11-29] MEDS ORDERED: Cyanocobalamin (B-12) 1,000 MCG TABLET PO SCH (09:00)
[2017-11-29] MEDS ORDERED: Furosemide 40 MG TABLET PO SCH (09:00)
[2017-11-29] MEDS: Apixaban 2.5 MG TABLET PO SCH (09:02)
[2017-11-29] MEDS: Gabapentin 300 MG CAPSULE PO SCH (09:03)
[2017-11-29] MEDS: Diltiazem CD (24hr) 180 MG CAPSULE PO SCH (09:04)
[2017-11-29] MEDS: Insulin LISPRO 300 UNITS/3 ML VIAL SQ SCH ×3 (09:05→11:18)
[2017-11-29] MEDS: Insulin DETEMIR 100 UNIT/ML X5UNITS SQ SCH (09:17)
--- NOTE | 2017-11-29 14:42 | Discharge Summary ---
- NOTES TO OUTPATIENT PROVIDER Notes to Outpatient Provider: Seen for CP suspect rt musculoskeletal pain or strain secondary to therapy Date of Encounter: 11/29/17 Time of Encounter: 14:39 - Discharge Diagnosis (1) Essential hypertension Priority: Secondary Status: Chronic (2) Physical deconditioning Priority: Secondary Status: Chronic (3) Diabetes mellitus, type 2 Priority: Secondary Status: Chronic Qualifiers: Diabetes mellitus rat exterminator insulin use: with rat exterminator use Diabetes mellitus complication status: without complication Qualified Code(s): E11.9 - Type 2 diabetes mellitus without complications; Z79.4 - terminologist (current) use of insulin (4) Atrial fibrillation Priority: Secondary Status: Chronic Qualifiers: Atrial fibrillation type: paroxysmal Qualified Code(s): I48.0 - Paroxysmal atrial fibrillation (5) DVT (deep venous thrombosis) Priority: Secondary Status: Chronic Qualifiers: DVT location: lower extremity Affected thrombotic vein of extremity: other lower extremity vein Chronicity: acute Laterality: left Qualified Code(s) : I82.492 - Acute embolism and thrombosis of other specified deep vein of left lower extremity (6) CKD (chronic kidney disease) stage 3, GFR 30-59 ml/min Priority: Secondary Status: Chronic (7) Thoracic aortic aneurysm without rupture Priority: Secondary Status: Chronic (8) DVT prophylaxis Priority: Secondary Status: Acute (9) Anxiety Priority: Secondary Status: Chronic (10) Chest pain Priority: Primary Status: Acute Qualifiers: Chest pain type: unspecified Qualified Code(s): R07.9 - Chest pain, unspecified Hospital course: Ms. De León is a 87 year old female past medical hx of ckd3 a fib DVT DM GI bleed HLD HTN pulmonary embolus on anticoagulation thyroid disease pacemaker placement . She is a resident of SNF and is mostly bed bound , she presented to the ED with complaints of R sided chest wall pain, directly under her R breast . She recently started physical therapy. The pain is exacerbated by movement of R arm , EKG was paced rhythm CTA negative for PE CXR unremarkable, troponin negative x3- Xray of ribs with no acute process or fractures. She cont to complain of R shoulder pain but no CP voiced at this time She is hemodynamically stable and ready for discharge Discharge discussed with: patient - Time Spent with Patient Total time spent providing and/or coordinating discharge services: - Discharge Medications Home Medications: Calcium Carbonate/Vitamin D3 [Calcium 500-Vit D3 400 Tablet] 1 each PO DAILY [History] Furosemide [Lasix] 40 mg PO QAM 05/13/15 [History] Gabapentin [Neurontin] 300 mg PO BID 05/13/15 [History] Glucosamine HCl/Chondr Mcghee A Na [Cvs Glucosamine-Chondr Caplet] 1 each PO QPM [History] Losartan [Cozaar] 50 mg PO BID 05/13/15 [History] Magnesium Oxide [Magnesium] 400 mg PO QAM 05/13/15 [History] Pravastatin Sodium [Pravachol] 40 mg PO QPM 05/13/15 [History] Sotalol [Betapace] 80 mg PO BID 05/13/15 [History] Aspirin 81 mg PO DAILY 09/02/16 [History] Diltiazem HCl [Diltiazem 24Hr Cd] 180 mg PO BID 09/02/16 [History] Potassium Chloride [Klor-Con 10] 20 meq PO DAILY 09/02/16 [History] Bisacodyl [Dulcolax] 10 mg RC DAILY PRN 04/13/17 [History] Docusate Sodium [Stool Softener] 100 mg PO DAILY PRN 04/13/17 [History] Famotidine [Pepcid] 20 mg PO DAILY 04/13/17 [History] Ipratropium/Albuterol Neb [Duoneb] 3 ml IH Q6HR PRN 04/13/17 [History] Guaifenesin [Mucinex] 1,200 mg PO BID PRN 04/14/17 [History] Apixaban [Eliquis] 2.5 mg PO BID #60 tablet 07/04/17 [Rx] Ferrous Sulfate 325 mg PO DAILY 07/04/17 [History] Carboxymethylcellulos/Glycerin [Refresh Optive Eye Drops] 1 drop BOTH EYES QID PRN 09/04/17 [History] Insulin ASPART [NovoLOG] 6 unit SQ BID 09/04/17 [History] Insulin DETEMIR [Levemir] 28 unit SQ BID 09/04/17 [History] Oxycodone HCl [Oxaydo] 5 mg PO Q4HR PRN 09/04/17 [History] ALPRAZolam [Xanax 0.5 MG Tablet] 0.25 mg PO HS PRN 30 Days #30 tablet 09/05/17 [ Rx] Cyanocobalamin (Vitamin B-12) [B-12] 1,000 mcg PO DAILY #90 tablet.er 09/05/17 [ Rx] Ergocalciferol (VITAMIN D2) [Drisdol (50,000 Unit)] 50,000 unit PO QWEEK #12 capsule 09/05/17 [Rx] Sennosides/Docusate Sodium [Senna Plus] 1 each PO DAILY 90 Days #90 tablet 09/05 [Rx] Sertraline [Zoloft] 25 mg PO DAILY #30 tablet 09/05/17 [Rx] Thiamine HCl [Vitamin B-1] 200 mg PO DAILY #180 tablet 09/05/17 [Rx] hydrALAZINE [HydrALAZINE] 25 mg PO Q8HR PRN #90 tablet 09/05/17 [Rx] Famotidine [Pepcid] 20 mg PO DAILY 11/28/17 [History] Ondansetron HCl [Zofran] 4 mg PO Q6H 11/28/17 [History] Allergies/Adverse Reactions: 3 Allergy/AdvReac Type Severity Reaction Status Date / Time naproxen [From Aleve] Allergy Mild Blister Verified 07/04/17 10:47 aspirin [ASA] Allergy See Verified 07/04/17 10:47 Comments ibuprofen AdvReac Mild Abdominal Verified 07/04/17 10:47 Pain metformin AdvReac See Verified 07/04/17 10:47 Comments Date of admission: 11/28/17 14:23 Primary care physician: PCP NONE Consults: 11/28/17 14:50 Consult to Occupational Therapy [CONS] Routine Comment: Evaluate, develop and implement POC Reason for Consult: Deconditioning Does patient have active BEDREST order?: No Is patient medically & hemodynamically stable?: Yes Consult to Physical Therapy [CONS] Routine Comment: Evaluate, develop and implement POC Reason for Consult: Deconditioning Does patient have active BEDREST order?: No Is patient medically & hemodynamically stable?: Yes 11/28/17 16:35 Consult to Pulmonary Physician [CONS] Routine Reason for SW Consult: ECF placement Discharging clinician: Raquel Swift Anticipated date of discharge: 11/29/17 - Constitutional Vitals: Temp Pulse Resp BP Pulse Ox 98.0 F 59 16 172/75 98 11/29/17 10:54 11/29/17 10:54 11/29/17 10:54 11/29/17 10:54 11/29/17 10:54 General appearance: Present: A&O X 3, pleasant, no acute distress, obese Exam: see above - Head Head exam: Present: atraumatic, normocephalic - Eye Eye exam: Present: PERRL, conjuntiva pink, sclera anicteric Pupils: Present: PERRL - Neck Neck exam general surgery: Present: supple, trachea midline. Absent: lymphadenopathy - Respiratory Respiratory exam: Present: CTAB. Absent: accessory muscle use, rales, rhonchi, wheezes - Cardiovascular Cardiovascular exam: Present: RRR, +S1, +S2. Absent: diastolic murmur, gallop, rubs, systolic murmur - GI/Abdominal GI/Abdominal exam: Present: normal bowel sounds, soft, no peritoneal signs. Absent: distended, tenderness - Extremities Exam Extremities exam: Present: warm, radial pulses palpable and symmetrical. Absent : calf tenderness, cyanotic, pedal edema - Neurological Exam Neurological exam: Present: CN II-XII intact, oriented X3, no focal deficits. Absent: pronater drift, facial droop, speech deficit - Skin Skin exam: Present: dry, intact - Patient Status Disposition: Transfer SNF Condition: Good Functional capacity at discharge: bed bound Overall status at discharge: patient is back to baseline - Discharge Instructions Instructions: Atrial Fibrillation (DC), Chest Pain (DC), Anxiety (DC) Follow Up With: NONE,PCP [Primary Care Provider] - - Diet and Activity Activity: as per physical therapy Diet: advance to your usual diet
--- NOTE | 2017-11-29 15:13 | Physician Discharge Referral ---
ExtendedCare Referral Info Transfer To: [facility] Provider in Charge: marvin quan Provider in Charge after Transfer: PCP Institutional Level of Care: Skilled - Diagnosis (1) Essential hypertension Priority: Secondary Status: Chronic (2) Physical deconditioning Priority: Secondary Status: Chronic (3) Diabetes mellitus, type 2 Priority: Secondary Status: Chronic (4) Atrial fibrillation Priority: Secondary Status: Chronic (5) DVT (deep venous thrombosis) Priority: Secondary Status: Chronic (6) CKD (chronic kidney disease) stage 3, GFR 30-59 ml/min Priority: Secondary Status: Chronic (7) Thoracic aortic aneurysm without rupture Priority: Secondary Status: Chronic (8) Anxiety Priority: Secondary Status: Chronic (9) Chest pain Priority: Primary Status: Acute Prognosis: Good - Transfer Medications Home Medications: Calcium Carbonate/Vitamin D3 [Calcium 500-Vit D3 400 Tablet] 1 each PO DAILY [History] Furosemide [Lasix] 40 mg PO QAM 05/13/15 [History] Gabapentin [Neurontin] 300 mg PO BID 05/13/15 [History] Glucosamine HCl/Chondr Mcghee A Na [Cvs Glucosamine-Chondr Caplet] 1 each PO QPM [History] Losartan [Cozaar] 50 mg PO BID 05/13/15 [History] Magnesium Oxide [Magnesium] 400 mg PO QAM 05/13/15 [History] Pravastatin Sodium [Pravachol] 40 mg PO QPM 05/13/15 [History] Sotalol [Betapace] 80 mg PO BID 05/13/15 [History] Aspirin 81 mg PO DAILY 09/02/16 [History] Diltiazem HCl [Diltiazem 24Hr Cd] 180 mg PO BID 09/02/16 [History] Potassium Chloride [Klor-Con 10] 20 meq PO DAILY 09/02/16 [History] Bisacodyl [Dulcolax] 10 mg RC DAILY PRN 04/13/17 [History] Docusate Sodium [Stool Softener] 100 mg PO DAILY PRN 04/13/17 [History] Famotidine [Pepcid] 20 mg PO DAILY 04/13/17 [History] Ipratropium/Albuterol Neb [Duoneb] 3 ml IH Q6HR PRN 04/13/17 [History] Guaifenesin [Mucinex] 1,200 mg PO BID PRN 04/14/17 [History] Apixaban [Eliquis] 2.5 mg PO BID #60 tablet 07/04/17 [Rx] Ferrous Sulfate 325 mg PO DAILY 07/04/17 [History] Carboxymethylcellulos/Glycerin [Refresh Optive Eye Drops] 1 drop BOTH EYES QID PRN 09/04/17 [History] Insulin ASPART [NovoLOG] 6 unit SQ BID 09/04/17 [History] Insulin DETEMIR [Levemir] 28 unit SQ BID 09/04/17 [History] Oxycodone HCl [Oxaydo] 5 mg PO Q4HR PRN 09/04/17 [History] ALPRAZolam [Xanax 0.5 MG Tablet] 0.25 mg PO HS PRN 30 Days #30 tablet 09/05/17 [ Rx] Cyanocobalamin (Vitamin B-12) [B-12] 1,000 mcg PO DAILY #90 tablet.er 09/05/17 [ Rx] Ergocalciferol (VITAMIN D2) [Drisdol (50,000 Unit)] 50,000 unit PO QWEEK #12 capsule 09/05/17 [Rx] Sennosides/Docusate Sodium [Senna Plus] 1 each PO DAILY 90 Days #90 tablet 09/05 [Rx] Sertraline [Zoloft] 25 mg PO DAILY #30 tablet 09/05/17 [Rx] Thiamine HCl [Vitamin B-1] 200 mg PO DAILY #180 tablet 09/05/17 [Rx] hydrALAZINE [HydrALAZINE] 25 mg PO Q8HR PRN #90 tablet 09/05/17 [Rx] Famotidine [Pepcid] 20 mg PO DAILY 11/28/17 [History] Ondansetron HCl [Zofran] 4 mg PO Q6H 11/28/17 [History] Allergies/Adverse Reactions: 3 Allergy/AdvReac Type Severity Reaction Status Date / Time naproxen [From Aleve] Allergy Mild Blister Verified 07/04/17 10:47 aspirin [ASA] Allergy See Verified 07/04/17 10:47 Comments ibuprofen AdvReac Mild Abdominal Verified 07/04/17 10:47 Pain metformin AdvReac See Verified 07/04/17 10:47 Comments - Respiratory Orders Smoking Cessation: Smoking cessation has been advised. For more information, call the [place] Tobacco Quit Line at 9-545-UCSS-NOW. - Advance Directives Code Status: DNR-Comfort Care - Mobility Orders Bedrest - Rehabiliation Orders Rehab Orders: Evaluation for Physical Therapy - Diet Orders Regular CERTIFICATION: I certify that the transfer of the above named patient to an Extended Care Facility is necessary for the continuing treatment of the diagnosis listed. The above information is true and accurate reflection of patient's current condition. Confidential - Redisclosure prohibited without a patient's written consent.
[2017-11-29 15:18] VITALS: BP 147/68
--- NOTE | 2017-11-29 17:51 | Electrocardiograph Report ---
[place] [id number] Test Date: 2017-11-29 Pat Name: Edel De León Department: 113 Room: 3B11 Gender: F Search Planner: : [id number] Requested By: Raquel Swift Order Number: [id number] Reading MD: Anna Rosales Measurements Intervals [place] Rate: 65 P: 63 [place]: 174 QRS: -66 QRSD: 196 T: 78 QT: 560 QTc: 571 Interpretive Statements ELECTRONIC VENTRICULAR PACEMAKER ABNORMAL RHYTHM ECG Electronically Signed On 11-29-2017 17:49:48 EDT by Anna Rosales
== END 2017-11-29 16:45 ==
LOC: EMEROOARM 10:58 → 3BNU 10:58
PROVIDERS: ADMIT Internal Medicine; ATTEND Internal Medicine

== ENCOUNTER 2018-09-25 10:30 | Inpatient (IN) ==
[2018-09-25] MEDS ORDERED: Ondansetron 4 MG/2 ML VIAL IVP ONE (11:03)
[2018-09-25] MEDS ORDERED: 0.9 % Sodium Chloride 500 ML IVC ONE (11:05)
[2018-09-25 11:24] LABS: BUN/Creatinine Ratio 18 (6-26); Blood Urea Nitrogen 13 mg/dL (8-23); Calcium 9.1 mg/dL (8.6-10.3); Carbon Dioxide 23 mEq/L (23-29); Chloride 99 mEq/L (98-107); Glucose 310 mg/dL (70-105); Lipase 4 Units/L (11-82); Osmolality,Calculated 286 (280-300); Potassium 4.2 mEq/L (3.5-5.1); Sodium 132 mEq/L (136-145); eGFR For African Americans > 60 (> 60); eGFR For Non-African Americans > 60 (> 60)
[2018-09-25 11:26] LABS: Basophils # 0.1 K/mcL (0.0-0.2); Basophils % 0.7 %; Eosinophils # 0.3 K/mcL (0.0-0.6); Eosinophils % 3.6 %; Hematocrit 37.3 % (35.3-44.9); Hemoglobin 12.1 g/dL (11.5-15.4); Immature Granulocytes % 0.3 % (0-4); Lymphocytes # 1.5 K/mcL (0.6-4.6); Lymphocytes % 20.6 %; Mean Corpuscular HGB Conc 32.4 g/dL (31.6-35.5); Mean Corpuscular Hemoglobin 28.9 pg (28.0-33.3); Mean Platelet Volume 10.9 fL (9.4-12.4); Monocytes # 0.9 K/mcL (0.0-1.3); Monocytes % 12.1 %; Neutrophils # 4.5 K/mcL (1.6-8.9); Platelet Count 279 K/mcL (140-400); Red Blood Count 4.19 M/mcL (3.82-4.97); Red Cell Distribution Width 13.9 % (11.5-14.5); Segmented Neutrophils % 62.7 %; White Blood Count 7.1 K/mcL (4.3-11.1)
[2018-09-25] MEDS ORDERED: Potassium Chloride Elixir 20 MEQ/15 ML UDC PO ONE (11:28)
[2018-09-25] MEDS ORDERED: Isovue-370 500 ML BOTTLE IVP ONE (11:28)
--- NOTE | 2018-09-25 11:33 | Emergency Department Note ---
Disposition Clinical Impression: Generalized weakness UTI (urinary tract infection) Qualifiers: Urinary tract infection type: acute cystitis Hematuria presence: with hematuria Qualified Code(s): N30.01 - Acute cystitis with hematuria Nausea and vomiting Qualifiers: Vomiting type: unspecified Vomiting Intractability: non-intractable Qualified Code(s): R11.2 - Nausea with vomiting, unspecified Disposition: Admitted As Inpatient Condition: Good Time of Disposition: 15:00 General Adult HPI - General Chief complaint: ED Nausea/Vomiting/Diarrhea Stated complaint: n/v Time Seen by Provider: 09/25/18 10:58 Source: patient, family, EMS Mode of arrival: EMS Limitations: no limitations Nursing Notes Reviewed: Yes Vital Signs Reviewed: Yes - History of Present Illness HPI Narrative: This is an 88 year-old female with history of HTN, IDDM, AF, pacer, DVT/PE, AAA repair, and frequent UTIs. She presents with malodorous, cloudy urine for the past 5-6 days. She was sent to the ED form her [facility] after patient vomited her breakfast this morning. She complains of generalized abdominal pain for the past 2 days, acute on chronic dysuria. Last BM a couple of days ago; history of chronic constipation. No recent fevers. Patient's daughter suspects that she has another UTI. Pt Subjective Complaint: Vomiting, Urine changes Onset (ago): day(s) (6) Location: abdomen Radiation: non-radiation Pain Severity: moderate Pain Scale: 5 Improves with: nothing Worsens with: nothing Associated symptoms: Reports: loss of appetite, malaise, nausea/vomiting, weakness (generalized). Denies: confusion, chest pain, cough, fever/chills, headaches, shortness of breath - Related Data Home Medications Medication Instructions Recorded Confirmed Furosemide [Lasix] 40 mg PO QAM 05/13/15 09/25/18 Losartan [Cozaar] 25 mg PO DAILY 05/13/15 09/25/18 Sotalol [Betapace] 80 mg PO BID 05/13/15 09/25/18 Aspirin 81 mg PO DAILY 09/02/16 09/25/18 Potassium Chloride [Klor-Con 10] 20 meq PO DAILY 09/02/16 09/25/18 Docusate Sodium [Stool Softener] 100 mg PO DAILY PRN 04/13/17 09/25/18 Ipratropium/Albuterol Neb [Duoneb] 3 ml IH Q6HR PRN 04/13/17 06/01/18 Ferrous Sulfate 325 mg PO DAILY 07/04/17 06/01/18 Insulin ASPART [NovoLOG] 6 unit SQ BID 09/04/17 06/01/18 Insulin DETEMIR [Levemir] 20 unit SQ BID 09/04/17 09/25/18 Gluc HCl/Csa/Collagen/Hyalur A 1 each PO DAILY 01/02/18 09/25/18 [Glucosamine Chondroitin Cap] Hydrocortisone Acetate [Proctocort] 30 mg RC DAILY PRN 01/02/18 06/01/18 Diltiazem CD (24hr) [Cardizem CD] 180 mg PO DAILY 06/01/18 09/25/18 ALPRAZolam [Xanax 0.25 MG Tablet] 0.25 mg PO DAILY 09/25/18 09/25/18 Acetaminophen w/Cod 300-30 mg 12.5 mg PO DAILY 09/25/18 09/25/18 [Tylenol w/Codeine #3] Ascorbic Acid [Vitamin C] 500 mg PO DAILY 09/25/18 09/25/18 Benzocaine [Anesthetic Oral Gel] 1 gm MM PRN PRN 09/25/18 09/25/18 Bisacodyl [Dulcolax] 5 mg PO BID 09/25/18 09/25/18 Carboxymethylcellulos/Glycerin 1 ml OP DAILY 09/25/18 09/25/18 [Refresh Optive Eye Drops] Dextran 70/Hypromellose 1 each .ROUTE PRN PRN 09/25/18 09/25/18 [Artificial Tears] Multivitamin [Multivitamins] 1 each PO DAILY 09/25/18 09/25/18 Polyethylene Glycol 3350 [MiraLAX] 17 gm PO DAILY 09/25/18 09/25/18 Sertraline [Zoloft] 12.5 mg PO DAILY 09/25/18 09/25/18 guaiFENesin [Guaifenesin] 1,200 mg PO PRN PRN 09/25/18 09/25/18 Previous Rx's Medication Instructions Recorded Apixaban [Eliquis] 2.5 mg PO BID #60 tablet 07/04/17 Cyanocobalamin (Vitamin B-12) 1,000 mcg PO DAILY #90 tablet.er 09/05/17 [B-12] Ergocalciferol (VITAMIN D2) 50,000 unit PO QWEEK #12 capsule 09/05/17 [Drisdol (50,000 Unit)] Sennosides/Docusate Sodium [Senna 1 each PO DAILY 90 Days #90 tablet 09/05/17 Plus] Gabapentin [Neurontin] 300 mg PO BID #6 capsule 11/29/17 Thiamine HCl [Vitamin B-1] 100 mg PO DAILY #180 tablet 01/26/18 hydrALAZINE [HydrALAZINE] 50 mg PO TID #90 01/26/18 Allergies Allergy/AdvReac Type Severity Reaction Status Date / Time naproxen [From Aleve] Allergy Mild Blister Verified 07/26/18 17:07 aspirin [ASA] Allergy See Verified 07/26/18 17:07 Comments ibuprofen AdvReac Mild Abdominal Verified 07/26/18 17:07 Pain metformin AdvReac See Verified 07/26/18 17:07 Comments All systems ED: reviewed and negative except as stated. Constitutional: Reports: weakness (generalized). Denies: fever Cardiovascular: Denies: chest pain Respiratory: Denies: dyspnea Gastrointestinal: Reports: abdominal pain, nausea, vomiting, constipation. Denies: diarrhea, hematemesis, melena, hematochezia Genitourinary: Reports: dysuria, other (cloudy, malodorous urine) Musculoskeletal: Reports: back pain Neurological: Reports: headache. Denies: weakness, numbness Past Medical History - Past Medical History Medical history: Reports: atrial fibrillation, DVT, diabetes, GI bleed, hyperlipidemia, hypertension, pulmonary embolus, renal disease, thyroid disease, other Surgical history: Reports: appendectomy, cholecystectomy, herniorrhaphy, hysterectomy, orthopedic, other, pacemaker/AICD Psychiatric history: Reports: anxiety, depression PALLET STONE INSERTER history: Reports: no PALLET STONE INSERTER history, other - Social History Smoking Status: Never smoker Smokeless Tobacco Status: No Alcohol use: Reports: none Drug use: Reports: none Physical Exam - General Limitations: no limitations General appearance: alert, in no apparent distress, other (daughter says mental status at baseline) - Head Head exam: atraumatic, normocephalic - Eye Eye exam: Present: normal appearance - ENT ENT exam: normal exam - Neck Neck exam: Present: normal inspection - Respiratory Respiratory exam: Present: normal lung sounds bilaterally. Absent: respiratory distress - Cardiovascular Cardiovascular exam: Present: regular rate, normal rhythm, normal heart sounds - Abdominal Exam Abdominal exam: Present: soft, Non-Tender, normal bowel sounds. Absent: distention, guarding, rebound, rigidity Abdominal tenderness: Present: diffuse (max RLQ), mild - Extremities Exam Extremities exam: Present: normal inspection - Neurological Exam Neurological exam: Present: alert. Absent: motor sensory deficit - Psychiatric Psychiatric exam: Present: flat affect - Skin Skin exam: Present: warm, dry, intact Course - Reevaluation(s) Reevaluation #1: Patient remains stable. Feels about the same as before. Patient's daughter feels that she would benefit from admission for IV abx for UTI. Time: 14:47 - Consultations Consultation #1: Reviewed with Dr. Burton. Patient accepted for admission. Time: 14:52 Vital Signs Temperature 98.6 F 09/25/18 10:31 Pulse Rate 85 09/25/18 10:31 Respiratory Rate 16 09/25/18 10:31 Blood Pressure 180/80 09/25/18 10:31 O2 Sat by Pulse Oximetry 99 09/25/18 10:31 Temperature 98.0 F 09/25/18 19:36 Pulse Rate 86 09/25/18 19:36 Respiratory Rate 16 09/25/18 19:36 Blood Pressure 189/96 09/25/18 19:36 O2 Sat by Pulse Oximetry 95 09/25/18 19:36 Oxygen Delivery Oxygen Delivery Nasal Cannula Medical Decision Making - [facility] Narrative Medical decision making narrative: 11:30 - This is an 88 year-old female with multiple medical problems including frequent UTIs who presented with dysuria and malodorous urine for the past few days and an episode of vomiting this AM. Other symptoms include generalized abdominal pain, generalized weakness. Mild tenderness on exam. Patient is s/p apply, yuly, hysterectomy. Symptoms probably represent UTI. - Lab Data Lab results reviewed: Yes I reviewed the patient's lab results. Lab results narrative: BMP - Hyperglycemia CBC - Normal UA - ++UTI Result diagrams: 09/25/18 10:30 09/25/18 10:30 Lab Results 09/25/18 09/25/18 09/25/18 Range/Units 10:30 10:30 11:57 WBC 7.1 (4.3-11.1) K/mcL RBC 4.19 (3.82-4.97) M/mcL Hgb 12.1 (11.5-15.4) g/dL Hct 37.3 (35.3-44.9) % MCV 89.0 (83.0-100.0) fL MCH 28.9 (28.0-33.3) pg MCHC 32.4 (31.6-35.5) g/dL RDW 13.9 (11.5-14.5) % Plt Count 279 (140-400) K/mcL MPV 10.9 (9.4-12.4) fL Immature Gran % 0.3 (0-4) % Seg Neutrophils % 62.7 % Lymphocytes % 20.6 % Monocytes % 12.1 % Eosinophils % 3.6 % Basophils % 0.7 % Neutrophils # 4.5 (1.6-8.9) K/mcL Lymphocytes # 1.5 (0.6-4.6) K/mcL Monocytes # 0.9 (0.0-1.3) K/mcL Eosinophils # 0.3 (0.0-0.6) K/mcL Basophils # 0.1 (0.0-0.2) K/mcL Sodium 132 L (136-145) mEq/L Potassium 4.2 (3.5-5.1) mEq/L Chloride 99 (98-107) mEq/L Carbon Dioxide 23 (23-29) mEq/L BUN 13 (8-23) mg/dL Creatinine 0.74 (0.60-1.20) mg/dL Est GFR ( Amer) > 60 (> 60) Est GFR (Non-Af Amer) > 60 (> 60) BUN/Creatinine Ratio 18 (6-26) Glucose 310 H (70-105) mg/dL Calculated Osmolality 286 (280-300) Calcium 9.1 (8.6-10.3) mg/dL Lipase 4 L (11-82) Units/L Urine Color Yellow (Yellow) Urine Clarity Turbid A (Clear) Urine pH 6.5 (5.0-8.0) pH Units Ur Specific [place] 1.020 (1.010-1.025) Urine Protein >=300 H (Neg-Trace) mg/dL Urine Glucose (UA) 250 H (Normal) mg/dL Urine Ketones Trace H (Negative) mg/dL Urine Blood Moderate H (Negative) Urine Nitrite Positive A (Negative) Urine Bilirubin Negative (Negative) Urine Urobilinogen Normal (Normal) mg/dL Ur Leukocyte Esterase Large H (Negative) Urine Microscopic RBC Present (0-3) per hpf Urine Microscopic WBC TNTC H (0-3) per hpf Ur Squamous Epith Cells Many H (None-Few) per lpf Urine Bacteria Many H (None-Few) per hpf Hyaline Casts Few (None-Few) per lpf Ur Culture Indicated? YES A (NO) - Radiology Data Radiology results reviewed: Yes I reviewed the patient's radiology results. CT abd/pelvis: IMPRESSION: 1. Low-attenuation lesion within the right lobe of the liver measuring 2.3 x 2.7 cm. There is a suggestion puddling of contrast. However, this finding is new compared to the prior CT scan dated 07/26/2018 and is highly worrisome for metastatic disease. 2. Soft tissue mass involving the cecum worrisome for cecal adenocarcinoma. 3. New retroperitoneal and mesenteric lymphadenopathy compatible with metastatic disease. 4. Diverticulosis without obvious inflammation. 5. 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 6. Circumferential bladder wall thickening likely due to nondistended state.
[2018-09-25 12:09] LABS: Bilirubin,Urine Negative (Negative); Blood,Urine Moderate (Negative); Clarity,Urine Turbid (Clear); Color,Urine Yellow (Yellow); Glucose,Urine (UA) 250 mg/dL (Normal); Ketones,Urine Trace mg/dL (Negative); Leukocyte Esterase,Urine Large (Negative); Nitrite,Urine Positive (Negative); PH,Urine 6.5 pH Units (5.0-8.0); Protein,Urine >=300 mg/dL (Neg-Trace); Urobilinogen,Urine Normal (Normal)
[2018-09-25 12:12] LABS: Bacteria,Urine Many per hpf (None-Few); Squamous Epithelial Cell,Urine Many per lpf (None-Few); WBC,Urine TNTC per hpf (0-3)
[2018-09-25 12:33] LABS: Hyaline Casts,Urine Few per lpf (None-Few); RBC,Urine Present per hpf (0-3)
[2018-09-25] MEDS ORDERED: cefTRIAXone 1,000 MG in 0.9 % Sodium Chloride Mini Bag 100 ML IVPB ONE (13:40)
[2018-09-25] MEDS ORDERED: Ondansetron 4 MG/2 ML VIAL IVP PRN (15:26)
[2018-09-25] MEDS ORDERED: Naloxone 0.4 MG/ML INJ IVP PRN (15:26)
[2018-09-25] MEDS: 0.9 % Sodium Chloride 1,000 ML IVC SCH (18:06)
[2018-09-25] MEDS ORDERED: Benzocaine 20% 12 APPL GEL..GRAM. MM PRN (18:11)
[2018-09-25] MEDS ORDERED: Artificial Tears SOLN 15 ML BOTTLE OP PRN (18:11)
[2018-09-25] MEDS ORDERED: Ipratropium/Albuterol Neb 3 ML IH PRN (18:11)
[2018-09-25] MEDS ORDERED: Dextrose Gel 15 GM/37.5 ML TUBE PO PRN ×2 (18:15)
[2018-09-25] MEDS ORDERED: *HR* Dextrose 50 % in Water (Syg) 50 ML SYRINGE IVP PRN (18:15)
[2018-09-25] MEDS ORDERED: D5% in Water 1,000 ML IVC PRN (18:15)
--- NOTE | 2018-09-25 18:25 | Internal Med History&Physical ---
Date of Encounter: 09/25/18 Time of Encounter: 16:00 Internal Medicine - H&P: HPI Chief complaint: Dysuria Admitted From: Long-term Nursing Facility Plans for Post Hospital Care: Transfer Longterm Facility History of present illness: Ms. De León is a 88 year old female with history of HTN, IDDM, atrial fibrillati on on sotalol and Eliquis , frequent UTIs, recent AAA repair, DVT/PE who came into the hospital with her granddaughter from [facility] due to 3 days of dysuria, malodorous urine and polyuria. She denied any hematuria. Her symptoms also were associated with nausea and one episode of emesis started this morning. She describes the emesis as nonbilious, nonbloody. Patient has also decreased oral intake and has no appetite. Granddaughter reported 25 pound weight loss over the past 3 month period Patient had multiple UTIs in the past and she feels that this episode is the same as before. Patient denied any abdominal pain, fever, chills or night sweats. Patient has no chest pain, palpitation or shortness of breath. Patient was recently diagnosed with a colon mass after her AAA surgery. She has a scheduled colonoscopy in 2 weeks as per the granddaughter. CT scan of the abdomen and pelvis done at presentation revealed low attenuation lesion within the right lobe of the liver which is a new finding compared to CT scan done 3 months ago concerning for metastatic disease it also revealed new retroperitoneal and mesenteric lymphadenopathy compatible with metastatic disease. Upon presentation, patient was hemodynamically stable and afebrile. Her blood pressure was elevated to 200/99. Her blood work did not reveal any leukocytosis, her sodium was 132. UA was positive for urine nitrates and leukocyte as to his with was his WBC count and RBCs. Blood and urine cultures were collected. Patient received 1 dose of Rocephin and IV fluids. Past Med Surg Social Fam HX - Past Medical History Medical history: atrial fibrillation, DVT, diabetes, GI bleed, hyperlipidemia, hypertension, pulmonary embolus, renal disease, thyroid disease, other Additional medical history: pacemaker Psychiatric history: anxiety, depression - Past Surgical History Surgical History: appendectomy, cholecystectomy, herniorrhaphy, hysterectomy, orthopedic, other, pacemaker/AICD Additional surgical history: cardiac ablation, back surgery, benign tumors removed from bilateral breast, appendectomy, cholecystectomy, hysterectomy, hernia repair, AAA REPAIR - Social History Smoking Status: Never smoker Smokeless Tobacco Status: No Alcohol use: none Drug use: none - Family History Father Living Status: Mother Living Status: - Additional Family History Additional family history: No family history of colon cancer reported. Internal Medicine - H&P: Meds Furosemide [Lasix] 40 mg PO QAM 05/13/15 [History] Losartan [Cozaar] 25 mg PO DAILY 05/13/15 [History] Sotalol [Betapace] 80 mg PO BID 05/13/15 [History] Aspirin 81 mg PO DAILY 09/02/16 [History] Potassium Chloride [Klor-Con 10] 20 meq PO DAILY 09/02/16 [History] Docusate Sodium [Stool Softener] 100 mg PO DAILY PRN 04/13/17 [History] Ipratropium/Albuterol Neb [Duoneb] 3 ml IH Q6HR PRN 04/13/17 [History] Apixaban [Eliquis] 2.5 mg PO BID #60 tablet 07/04/17 [Rx] Ferrous Sulfate 325 mg PO DAILY 07/04/17 [History] Insulin ASPART [NovoLOG] 6 unit SQ BID 09/04/17 [History] Insulin DETEMIR [Levemir] 20 unit SQ BID 09/04/17 [History] Cyanocobalamin (Vitamin B-12) [B-12] 1,000 mcg PO DAILY #90 tablet.er 09/05/17 [Rx] Ergocalciferol (VITAMIN D2) [Drisdol (50,000 Unit)] 50,000 unit PO QWEEK #12 capsule 09/05/17 [Rx] Sennosides/Docusate Sodium [Senna Plus] 1 each PO DAILY 90 Days #90 tablet 09/05/17 [Rx] Gabapentin [Neurontin] 300 mg PO BID #6 capsule 11/29/17 [Rx] Gluc HCl/Csa/Collagen/Hyalur A [Glucosamine Chondroitin Cap] 1 each PO DAILY 01/02/18 [History] Hydrocortisone Acetate [Proctocort] 30 mg RC DAILY PRN 01/02/18 [History] Thiamine HCl [Vitamin B-1] 100 mg PO DAILY #180 tablet 01/26/18 [Rx] hydrALAZINE [HydrALAZINE] 50 mg PO TID #90 01/26/18 [Rx] Diltiazem CD (24hr) [Cardizem CD] 180 mg PO DAILY 06/01/18 [History] ALPRAZolam [Xanax 0.25 MG Tablet] 0.25 mg PO DAILY 09/25/18 [History] Acetaminophen w/Cod 300-30 mg [Tylenol w/Codeine #3] 12.5 mg PO DAILY 09/25/18 [History] Ascorbic Acid [Vitamin C] 500 mg PO DAILY 09/25/18 [History] Benzocaine [Anesthetic Oral Gel] 1 gm MM PRN PRN 09/25/18 [History] Bisacodyl [Dulcolax] 5 mg PO BID 09/25/18 [History] Carboxymethylcellulos/Glycerin [Refresh Optive Eye Drops] 1 ml OP DAILY 09/25/18 [History] Dextran 70/Hypromellose [Artificial Tears] 1 each .ROUTE PRN PRN 09/25/18 [History] Multivitamin [Multivitamins] 1 each PO DAILY 09/25/18 [History] Polyethylene Glycol 3350 [MiraLAX] 17 gm PO DAILY 09/25/18 [History] Sertraline [Zoloft] 12.5 mg PO DAILY 09/25/18 [History] guaiFENesin [Guaifenesin] 1,200 mg PO PRN PRN 09/25/18 [History] Allergy/AdvReac Type Severity Reaction Status Date / Time naproxen [From Aleve] Allergy Mild Blister Verified 07/26/18 17:07 aspirin [ASA] Allergy See Verified 07/26/18 17:07 Comments ibuprofen AdvReac Mild Abdominal Verified 07/26/18 17:07 Pain metformin AdvReac See Verified 07/26/18 17:07 Comments All Systems PM: A 10-system review of systems was performed and is negative for pertinent findings except as documented above in the HPI. - EENT Eyes: no change in vision, no discharge, no pain, no photophobia Ears: no ear discharge, no ear pain, no tinnitus Nose, mouth and throat: no dysphagia, no nasal discharge, no neck pain, no sore throat - Constitutional Vitals: Temp Pulse Resp BP Pulse Ox 97.8 F 81 17 200/99 98 09/25/18 17:26 09/25/18 17:26 09/25/18 17:26 09/25/18 17:26 09/25/18 17:35 Exam: General: Patient is alert, oriented 3. No acute distress Head: Atraumatic, normal inspection, normocephalic. Eye: EOMI, PERRLA, no scleral icterus noted. ENT: Mucous membranes dry. No odontogenic infection noted. Neck: Normal inspection, no meningismus. Respiratory: No respiratory distress, rhonchi, or wheezes noted. Cardiovascular: Regular rate and regular rhythm, S1 and S2 audible. No murmurs, rubs, or gallops. GI: Soft, nondistended, normal bowel sounds. Extremities:No joint swelling, pedal edema, or tenderness noted. Neurological: Alert, oriented 3, no focal deficits. Psychiatric: normal affect, normal mood. Skin: Dry, intact, warm. Normal color. No rashes. Internal Med - H&P Results - Labs CBC & Chem 7: 09/25/18 10:30 09/25/18 10:30 Labs: Short CBC 09/25/18 Range/Units 10:30 WBC 7.1 (4.3-11.1) K/mcL Hgb 12.1 (11.5-15.4) g/dL Hct 37.3 (35.3-44.9) % Plt Count 279 (140-400) K/mcL Neutrophils # 4.5 (1.6-8.9) K/mcL BMP 09/25/18 10:30 Sodium 132 L Potassium 4.2 Chloride 99 Carbon Dioxide 23 BUN 13 Creatinine 0.74 Glucose 310 H Calcium 9.1 Urine 09/25/18 Range/Units 11:57 Urine Color Yellow (Yellow) Urine Clarity Turbid A (Clear) Urine pH 6.5 (5.0-8.0) pH Units Ur Specific [place] 1.020 (1.010-1.025) Urine Protein >=300 H (Neg-Trace) mg/dL Urine Glucose (UA) 250 H (Normal) mg/dL - Impressions ITS Impressions Abdomen/Pelvis CT 09/25/18 11:28 IMPRESSION: 1. Low-attenuation lesion within the right lobe of the liver measuring 2.3 x 2.7 cm. There is a suggestion puddling of contrast. However, this finding is new compared to the prior CT scan dated 07/26/2018 and is highly worrisome for metastatic disease. 2. Soft tissue mass involving the cecum worrisome for cecal adenocarcinoma. 3. New retroperitoneal and mesenteric lymphadenopathy compatible with metastatic disease. 4. Diverticulosis without obvious inflammation. 5. 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 6. Circumferential bladder wall thickening likely due to nondistended state. D/ / Rex Johnson MD / Rex Johnson MD Interpreting Provider: Rex Johnson MD - Diagnostic Studies CT scan - abdomen Additional comments: Multiple liver lesions compatible with possible metastatic disease. - Assessment and Plan (1) UTI (urinary tract infection) Current Visit: Yes Status: Acute Qualifiers: Urinary tract infection type: acute cystitis Hematuria presence: with hemat uria Qualified Code(s): N30.01 - Acute cystitis with hematuria (2) Nausea and vomiting Current Visit: Yes Status: Acute Qualifiers: Vomiting type: unspecified Vomiting Intractability: non-intractable Qualified Code(s): R11.2 - Nausea with vomiting, unspecified (3) Constipation Current Visit: Yes Status: Chronic Qualifiers: Constipation type: other constipation type Qualified Code(s): K59.09 - Other constipation (4) Pulmonary embolus Current Visit: Yes Status: Chronic Qualifiers: Pulmonary embolism type: other Chronicity: chronic Acute cor pulmonale presence: without acute cor pulmonale Qualified Code(s): I27.82 - Chronic pulmonary embolism (5) Atrial fibrillation Current Visit: Yes Status: Chronic Qualifiers: Atrial fibrillation type: chronic Qualified Code(s): I48.2 - Chronic atrial fibrillation (6) Diabetes mellitus, type 2 Current Visit: Yes Status: Chronic Qualifiers: Diabetes mellitus intermediate accountant insulin use: with senior care use Diabetes mellitus complication status: without complication Qualified Code(s): E11.9 - Type 2 diabetes mellitus without complications; 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 De León is a 88 year old female with history of HTN, IDDM, atrial fibrillation on sotalol and Eliquis , frequent UTIs, recent AAA repair, DVT/PE who came into the hospital with her granddaughter from [facility] due to 3 days of dysuria, malodorous urine and polyuria. UTI: - Urine cultures and blood cultures are pending. - Received 1 dose of Rocephin in the ED, was switched to cefepime awaiting urine cultures. - Patient is afebrile, hemodynamically stable. Has no leukocytosis. - IV fluids at rate of 75 mL/hour. Monitor urine output Colon mass with possible liver metastasis: - Aspirin to granddaughter, patient does not want any chemotherapy. Grandmother was discussed with family members palliative evaluation. History of A. fib: - Continue home medication with sotalol and diltiazem. Continue Eliquis for AC IDDM: - Continue living there at 20 units subcutaneously twice a day, low sliding scale insulin. - Accu-Chek 3 times a day before meals at bedtime. ADA. Constipation: - Continue home bowel regimen HTN: - We will continue hydralazine, diltiazem and, losartan. DVT prophylaxis: Eliquis diet: ADA CODE STATUS: DNR/DNI - Time Spent With Patient Total time spent is greater than 50% in coordination of care (as documented) at patient's floor/unit and/or counseling patient: 40mniutes
[2018-09-25] MEDS ORDERED: hydrALAZINE 25 MG TABLET PO PRN (19:29)
[2018-09-25] MEDS: Insulin LISPRO 300 UNITS/3 ML VIAL SQ SCH ×2 (19:59→22:27)
[2018-09-25] MEDS: Gabapentin 300 MG CAPSULE PO SCH (20:11)
[2018-09-25] MEDS: Apixaban 2.5 MG TABLET PO SCH (20:11)
[2018-09-25] MEDS: hydrALAZINE 25 MG TABLET PO SCH (20:11)
[2018-09-25] MEDS ORDERED: NON-FORMULARY MEDICATION 1 EACH EACH (Insulin Detemir 20 UNIT) SQ SCH (21:00)
[2018-09-25] MEDS ORDERED: *HR* OxyCODONE Immed Rel 5 MG TABLET PO ONE (22:05)
[2018-09-25] MEDS: Insulin DETEMIR 100 UNIT/ML X5UNITS SQ SCH (22:26)
[2018-09-26 06:05] LABS: Basophils # 0.1 K/mcL (0.0-0.2); Basophils % 0.8 %; Eosinophils # 0.3 K/mcL (0.0-0.6); Eosinophils % 4.8 %; Hematocrit 35.5 % (35.3-44.9); Immature Granulocytes % 0.2 % (0-4); Lymphocytes # 2.3 K/mcL (0.6-4.6); Lymphocytes % 35.7 %; Mean Corpuscular Hemoglobin 28.5 pg (28.0-33.3); Mean Platelet Volume 10.4 fL (9.4-12.4); Monocytes # 0.9 K/mcL (0.0-1.3); Monocytes % 14.4 %; Neutrophils # 2.8 K/mcL (1.6-8.9); Platelet Count 237 K/mcL (140-400); Red Blood Count 3.86 M/mcL (3.82-4.97); Segmented Neutrophils % 44.1 %; White Blood Count 6.4 K/mcL (4.3-11.1)
[2018-09-26 06:22] LABS: BUN/Creatinine Ratio 16 (6-26); Blood Urea Nitrogen 13 mg/dL (8-23); Calcium 8.5 mg/dL (8.6-10.3); Carbon Dioxide 24 mEq/L (23-29); Chloride 105 mEq/L (98-107); Glucose 86 mg/dL (70-105); Osmolality,Calculated 283 (280-300); Potassium 3.7 mEq/L (3.5-5.1); Sodium 137 mEq/L (136-145); eGFR For African Americans > 60 (> 60); eGFR For Non-African Americans > 60 (> 60)
[2018-09-26] MEDS: 0.9 % Sodium Chloride 1,000 ML IVC SCH (08:00)
[2018-09-26] MEDS ORDERED: Cefepime HCl 1,000 MG in Water for inj. (sterile) 10 ML IVP SCH (08:00)
[2018-09-26] MEDS: Insulin LISPRO 300 UNITS/3 ML VIAL SQ SCH ×4 (08:50→21:34)
[2018-09-26] MEDS ORDERED: GLYCERIN OP SCH (09:00)
[2018-09-26] MEDS ORDERED: [UNRECOGNIZED DRUG - OTHER] OP SCH (09:00)
[2018-09-26] MEDS ORDERED: CARBOXYMETHYLCELLULOS OP SCH (09:00)
[2018-09-26] MEDS: ALPRAZolam 0.25 MG TABLET PO SCH (09:17)
[2018-09-26] MEDS: Sennosides/Docusate Sodium TABLET PO SCH (09:17)
[2018-09-26] MEDS: Gabapentin 300 MG CAPSULE PO SCH ×2 (09:17→20:05)
[2018-09-26] MEDS: Aspirin 81 MG TAB.CHEW PO SCH (09:17)
[2018-09-26] MEDS: *HR* Acetaminophen w/Cod 300-30 mg 1 TAB TABLET PO SCH (09:18)
[2018-09-26] MEDS: Ascorbic Acid 500 MG TABLET PO SCH (09:18)
[2018-09-26] MEDS: hydrALAZINE 25 MG TABLET PO SCH ×3 (09:18→20:05)
[2018-09-26] MEDS: Apixaban 2.5 MG TABLET PO SCH ×2 (09:18→20:05)
[2018-09-26] MEDS: Diltiazem CD (24hr) 180 MG CAPSULE PO SCH (09:18)
[2018-09-26] MEDS: Insulin DETEMIR 100 UNIT/ML X5UNITS SQ SCH ×2 (11:45→21:34)
--- NOTE | 2018-09-26 14:26 | Infectious Disease Consult ---
Infectious Disease-Consult - Encounter Date/Time Date of Encounter: 09/26/18 Time of Encounter: 14:28 - Data of Consult Requesting Physician: Rigo Daniel Primary Care Provider: Roula Wilson - HPI HPI: Ms. De León is a 88-year-old female presented to ED with complaints of dysuria for the past 5-6 days. Infectious disease was consulted for further recommendations of antibiotics for her recurrent UTI Ms. De León is a 88-year-old female with a past medical history of hypertension, IDDM,AFib (on Eliquis) , DVT/PE, AAA repair, frequent UTI who presented with malodorous cloudy urine for the past 5-6 days accompanied with dysuria. She also complained of nausea and one episode of non-bilious , non-bloody emesis that started yesterday morning after eating breakfast. She also endorses decreased oral intake with no appetite. Patient has a history of chronic constipation and her last bowel movements a couple days ago. She denies any recent fevers. Workup in the ED showed patient was afebrile with normal WBC, large amount of leukocyte esterase in the urine and was positive for nitrites ,with the protein >= 300. Patient's urine culture has mixed organisms resembling possible pathogens. Patient's a past urine culture from 06/19/09 grew Proteas mirabilis and ESBL. Prior to that her urine culture from 03/17/19 was posituve for MDRO E coli. Blood Cultures has had no growth to date. Patient received a dose of Rocephin in the ED and was switched to cefepime. Patient's CT abdomen/ pelvis with contrast showed low- attenuation lesion within the right lobe liver measuring 2.3 x 2.7 cm which is a new finding compared to CT from 07/26/18 worrisome for metastatic disease. There is also soft tissue mass involving the cecum was is worrisome for cecal adenocarcinoma. Patient also has new retroperitoneal and mesenteric lymphadenopathy compatible with metastatic disease. Patient also has diverticulosis without obvious inflammation Patient was recently diagnosed with colonic mass after AAA surgery and has a scheduled a colonoscopy next Tuesday. She denies any systemic signs like fever, shortness of breath, chest pain, abdominal pain. - ROS Review of Systems: A 10-system review of systems was performed and is negative for pertinent findings except as documented above in the HPI. - Results CBC & Chem 7: 09/26/18 05:46 09/26/18 05:46 - Exam Vitals: Temp Pulse Resp BP Pulse Ox 98.1 F 69 15 149/74 92 09/26/18 10:00 09/26/18 10:00 09/26/18 10:00 09/26/18 10:00 09/26/18 10:00 Exam: Gen.: Vitals noted. No acute distress. Alert, awake and oriented * 3 to person, place, and time, well developed, well-nourished resting comfortably in bed. Pleasant. HEENT: oropharynx clear, Normocephalic, atraumatic, MMM Neck: supple, no JVD, no lymphadenopathy, no carotid bruit. Cardiac: RRR, no murmur, +S1/S2, No BLE edema, PMI non-displaced Pulmonary: CTA bilaterally, no wheezes, rales or rhonchi, equal chest expansion, unlabored breathing Abdomen: suprapubic pain, soft, nontender, BS noted, no guarding, mildly distended. No organomegaly, no pulsatile masses, Skin: warm and dry, no visible lesions. Feels warm, clammy, no rashes, no lesions, no erythema MSK: ROM not assessed. no joint swelling noted, gait not assessed while in bed. Non tender calf or clubbing, no cyanosis/clubbing/ or edema Neuro: A&O, moves all extremities, no focal deficits, sensation intact Psych: Appropriate mood and behavior, normal speech. Losartan [Cozaar] 25 mg PO DAILY 05/13/15 [History] Sotalol [Betapace] 80 mg PO BID 05/13/15 [History] Aspirin 81 mg PO DAILY 09/02/16 [History] Apixaban [Eliquis] 2.5 mg PO BID #60 tablet 07/04/17 [Rx] Gabapentin [Neurontin] 300 mg PO BID #6 capsule 11/29/17 [Rx] Gluc HCl/Csa/Collagen/Hyalur A [Glucosamine Chondroitin Cap] 1 cap PO DAILY 01/02/18 [History] Hydrocortisone Acetate [Proctocort] 30 mg RC DAILY PRN 01/02/18 [History] Thiamine HCl [Vitamin B-1] 100 mg PO DAILY #180 tablet 01/26/18 [Rx] Diltiazem CD (24hr) [Cardizem CD] 180 mg PO BID 06/01/18 [History] ALPRAZolam [Xanax 0.25 MG Tablet] 0.25 mg PO DAILY 09/25/18 [History] Acetaminophen w/Cod 300-30 mg [Tylenol w/Codeine #3] 1 tab PO BID 09/25/18 [History] Dextran 70/Hypromellose [Artificial Tears] 1 drop BOTH EYES DAILY PRN 09/25/18 [History] Multivitamin [Multivitamins] 1 cap PO DAILY 09/25/18 [History] Sertraline [Zoloft] 12.5 mg PO DAILY 09/25/18 [History] guaiFENesin [Guaifenesin] 1,200 mg PO BID PRN 09/25/18 [History] Ascorbate Calcium [Vitamin C] 500 mg PO DAILY 09/26/18 [History] Benzocaine [Anesthetic Oral Gel] 1 appl MM DAILY PRN 09/26/18 [History] Bisacodyl [Gentle Laxative] 10 mg RC DAILY PRN 09/26/18 [History] Carboxymethylcellulos/Glycerin [Refresh Optive Eye Drops] 1 drop BOTH EYES QID PRN 09/26/18 [History] Docusate Sodium [Dok] 100 mg PO DAILY PRN 09/26/18 [History] Furosemide [Lasix] 40 mg PO DAILY 09/26/18 [History] GuaiFENesin/Dextromethorphan [Robitussin Cough-Chest Dm Liq] 10 ml PO Q12H 09/26/18 [History] Hydralazine HCl 50 mg PO TID 09/26/18 [History] Insulin ASPART [Novolog Flexpen] 10 unit SQ TID 09/26/18 [History] Insulin DETEMIR [Levemir Flextouch] 20 unit SQ BID 09/26/18 [History] Ipratropium/Albuterol Sulfate [Iprat-Albut 0.5-3(2.5) mg/3 ml] 3 ml IH Q6H PRN 09/26/18 [History] Menthol/Zinc Ox/Aloe/Wong Oil [Chamosyn Ointment] 1 appl TP BID 09/26/18 [History] Menthol/Zinc Ox/Aloe/Wong Oil [Chamosyn Ointment] 1 appl TP DAILY PRN 09/26/18 [History] Potassium Chloride [K-Tab ER] 20 meq PO DAILY 09/26/18 [History] Sennosides/Docusate Sodium [Senna Plus] 1 tab PO DAILY 09/26/18 [History] Allergy/AdvReac Type Severity Reaction Status Date / Time naproxen [From Aleve] Allergy Mild Blister Verified 07/26/18 17:07 aspirin [ASA] Allergy See Verified 07/26/18 17:07 Comments ibuprofen AdvReac Mild Abdominal Verified 07/26/18 17:07 Pain metformin AdvReac See Verified 07/26/18 17:07 Comments - Assessment and Plan (1) Cystitis Current Visit: Yes Status: Acute -Patient presents to the hospital because of dysuria for the past 5-6 days -Workup in the ED showed that patient was positive for large amount of leukocyte esterase and nitrites. Patient also had protein of greater than equal to 300 and the urine. -Urine culture from 06/19/18 was a positive for a Proteus mirabilis and ESBL -Urine culture from 03/17/19 grew MDR Escherichia coli -Sensitivities for both the cultures have shown that patient was resistant to cefepime -Patient will be started on 1 g every 24 hours ertapenem, and discharged on PO fosfomycin SNOMED Code(s): 68340843 (2) Mass of colon Current Visit: Yes Status: Chronic - to CT scan showed a soft tissue mass involving the cecum Patient is scheduled to undergo colonoscopy next Tuesday for further evaluation of colonic mass SNOMED Code(s): 846433196 (3) Atrial fibrillation Current Visit: Yes Status: Chronic Patient has a chronic history of atrial fibrillation She is on home medication sotalol and diltiazem for rate control and Eliquis for AC Qualifiers: Atrial fibrillation type: chronic Qualified Code(s): I48.2 - Chronic atrial fibrillation SNOMED Code(s): 88450578 (4) Diabetes mellitus, type 2 Current Visit: Yes Status: Chronic Patient has a history of insulin-dependent diabetes mellitus Currently on low-dose sliding scale insulin Qualifiers: Diabetes mellitus care home insulin use: with care home use Diabetes mellitus complication status: without complication Qualified Code(s): E11.9 - Type 2 diabetes mellitus without complications; 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 SNOMED Code(s): 46016468 (5) Hypertension Current Visit: No Status: Chronic Patient has a history of hypertension continue home dose of losartan 20 mg by mouth Qualifiers: Hypertension type: essential hypertension Qualified Code(s): I10 - Essential (primary) hypertension SNOMED Code(s): 92764373 Past Med Surg Social Fam HX - Past Medical History Medical history: atrial fibrillation, DVT, diabetes, GI bleed, hyperlipidemia, hypertension, pulmonary embolus, renal disease, thyroid disease, other Additional medical history: pacemaker Psychiatric history: anxiety, depression - Past Surgical History Surgical History: appendectomy, cholecystectomy, herniorrhaphy, hysterectomy, orthopedic, other, pacemaker/AICD Additional surgical history: cardiac ablation, back surgery, benign tumors removed from bilateral breast, appendectomy, cholecystectomy, hysterectomy, hernia repair, AAA REPAIR - Social History Smoking Status: Never smoker Smokeless Tobacco Status: No Alcohol use: none Drug use: none - Family History Father Living Status: Mother Living Status: Consult Discharge Plan - Plan Referrals: Roula Wilson [Primary Care Provider] - - Attending Attestation I examined this patient and my medical decision-making was reviewed with the Resident Physician. I agree with the documented findings, disposition and treatment plan as described except to the extent set forth below. Assessment and plan: Cystitis causative organism unclear but previously patient's culture positive for Proteus mirabilis and ESBL Escherichia coli Patient started on ertapenem, was clinically stable she might be discharge for possible mycin 1 packet for uncomplicated UTI Discussed with the hospitalist team
--- NOTE | 2018-09-26 19:17 | Internal Med Progress Note ---
Hospitalist Progress Note - Encounter Date of Encounter: 09/26/18 Time of Encounter: 10:00 - Subjective Interval History: Patient was seen this exam. She denied fever, chills or night sweats. She denied abdominal pain, nausea or vomiting. She has no shortness of breath. She does not have the appetite to eat - Exam Vitals: Temp Pulse Resp BP Pulse Ox 98.1 F 69 15 149/74 92 09/26/18 10:00 09/26/18 10:00 09/26/18 10:00 09/26/18 10:00 09/26/18 10:00 Exam: General: Patient is alert, oriented 3. No acute distress Head: Atraumatic, normal inspection, normocephalic. Eye: EOMI, PERRLA, no scleral icterus noted. ENT: Mucous membranes dry. No odontogenic infection noted. Neck: Normal inspection, no meningismus. Respiratory: No respiratory distress, rhonchi, or wheezes noted. Cardiovascular: Regular rate and regular rhythm, S1 and S2 audible. No murmurs, rubs, or gallops. GI: Soft, nondistended, normal bowel sounds. Extremities:No joint swelling, pedal edema, or tenderness noted. Neurological: Alert, oriented 3, no focal deficits. Psychiatric: normal affect, normal mood. Skin: Dry, intact, warm. Normal color. No rashes. - Assessment and Plan (1) Cystitis Current Visit: Yes Status: Acute (2) Diabetes mellitus, type 2 Current Visit: Yes Status: Chronic (3) Atrial fibrillation Current Visit: Yes Status: Chronic (4) Hypertension Current Visit: No Status: Chronic (5) Mass of colon Current Visit: Yes Status: Chronic - Summary of Assessment and Plan Summary of Assessment and Plan: Ms. De León is a 88 year old female with history of HTN, IDDM, atrial fibrillation on sotalol and Eliquis , frequent UTIs, recent AAA repair, DVT/PE who came into the hospital with her granddaughter from longterm due to 3 day s of dysuria, malodorous urine and polyuria. UTI: - Has history of ESBL, first urine culture showed mixed organisms with recommendation to repeat culture. - Received 1 dose of Rocephin. ID consulted for her history of ESBL, started on ertapenem today. - Patient is afebrile, hemodynamically stable. Has no leukocytosis. - IV fluids at rate of 75 mL/hour. Monitor urine output Colon mass with possible liver metastasis: - Aspirin to granddaughter, patient does not want any chemotherapy. Grandmother was discussed with family members palliative evaluation. History of A. fib: - Continue home medication with sotalol and diltiazem. Continue Eliquis for AC IDDM: - Continue Levemir 20 units subcutaneously once a day as the patient has poor oral intake, low sliding scale insulin. - Accu-Chek 3 times a day before meals at bedtime. ADA. Constipation: - Continue home bowel regimen HTN: - We will continue hydralazine, diltiazem and, losartan. DVT prophylaxis: Eliquis diet: ADA CODE STATUS: DNR/DNI - Time Spent with Patient Total time spent is greater than 50% in coordination of care (as documented) at patient's floor/unit and/or counseling patient: Plan of Care Discussed with: patient Internal Medicine: Result - Labs CBC & Chem 7: 09/26/18 05:46 09/26/18 05:46 Labs: Short CBC 09/26/18 Range/Units 05:46 WBC 6.4 (4.3-11.1) K/mcL Hgb 11.0 L (11.5-15.4) g/dL Hct 35.5 (35.3-44.9) % Plt Count 237 (140-400) K/mcL Neutrophils # 2.8 (1.6-8.9) K/mcL BMP 09/26/18 05:46 Sodium 137 Potassium 3.7 Chloride 105 Carbon Dioxide 24 BUN 13 Creatinine 0.82 Glucose 86 Calcium 8.5 L Consult Discharge Plan - Plan Referrals: Roula Wilson [Primary Care Provider] - ____ (2) Diabetes mellitus, type 2 Qualifiers: Diabetes mellitus snf insulin use: with manager ethics use Diabetes mellitus complication status: without complication Qualified Code(s): E11.9 - Type 2 diabetes mellitus without complications; 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
[2018-09-26] MEDS: Ertapenem 1,000 MG in 0.9 % Sodium Chloride Mini Bag 100 ML IVPB SCH (20:05)
[2018-09-27] MEDS: Acetaminophen 325 MG TABLET PO PRN (03:28)
[2018-09-27] MEDS: hydrALAZINE 25 MG TABLET PO SCH ×3 (09:08→20:14)
[2018-09-27] MEDS: Aspirin 81 MG TAB.CHEW PO SCH (09:09)
[2018-09-27] MEDS: ALPRAZolam 0.25 MG TABLET PO SCH (09:09)
[2018-09-27] MEDS: Apixaban 2.5 MG TABLET PO SCH ×2 (09:09→20:14)
[2018-09-27] MEDS: Sennosides/Docusate Sodium TABLET PO SCH (09:09)
[2018-09-27] MEDS: Gabapentin 300 MG CAPSULE PO SCH ×2 (09:09→20:14)
[2018-09-27] MEDS: Diltiazem CD (24hr) 180 MG CAPSULE PO SCH (09:09)
[2018-09-27] MEDS: *HR* Acetaminophen w/Cod 300-30 mg 1 TAB TABLET PO SCH (09:10)
[2018-09-27] MEDS: Insulin LISPRO 300 UNITS/3 ML VIAL SQ SCH ×4 (09:10→20:28)
[2018-09-27] MEDS: Ascorbic Acid 500 MG TABLET PO SCH (09:10)
--- NOTE | 2018-09-27 11:06 | Infectious Disease Progress No ---
ID Progress Note Date of Encounter: 09/27/18 Time of Encounter: 10:30 - Subjective Subjective: Patient is seen and examined at the bedside. She endorses mild distress and complains of abdominal pain and diminished appetite, hasn't had a bowel movement this morning. Patient currently is on ertapenem 1g q24 h for her recurrent UTI . She has remained afebrile overnight and denies systemic signs like fever, shortness of breath, diarrhea, vomiting and nausea - Objective CBC & Chem 7: 09/28/18 06:20 09/28/18 06:20 - Exam Vitals: Temp Pulse Resp BP Pulse Ox 98.4 F 64 15 151/74 93 09/27/18 07:05 09/27/18 07:05 09/27/18 07:05 09/27/18 07:05 09/27/18 07:05 Exam: Gen.: Vitals noted. No acute distress. Alert, awake and oriented * 3 to person, place, and time, well developed, well-nourished resting comfortably in bed. Pleasant. HEENT: oropharynx clear, Normocephalic, atraumatic, MMM Neck: supple, no JVD, no lymphadenopathy, no carotid bruit. Cardiac: RRR, no murmur, +S1/S2, No BLE edema, PMI non-displaced Pulmonary: CTA bilaterally, no wheezes, rales or rhonchi, equal chest expansion, unlabored breathing Abdomen: suprapubic pain relatively less than yesterday, soft, nontender, BS noted, no guarding, mildly distended. No organomegaly, no pulsatile masses, Skin: warm and dry, no visible lesions. Feels warm, clammy, no rashes, no lesions, no erythema MSK: ROM not assessed. no joint swelling noted, gait not assessed while in bed. Non tender calf or clubbing, no cyanosis/clubbing/ or edema Neuro: A&O, moves all extremities, no focal deficits, sensation intact Psych: Appropriate mood and behavior, normal speech. - Assessment and Plan (1) Cystitis Current Visit: Yes Status: Acute -Patient presents to the hospital because of dysuria for the past 5-6 days -Workup in the ED showed that patient was positive for large amount of leukocyte esterase and nitrites. Patient also had protein of greater than equal to 300 and the urine. -first urine culture showed mixed organisms with recommendation to repeat culture. -Urine culture from 06/19/18 was a positive for Proteus mirabilis and ESBL E Coli -Urine culture from 03/17/19 grew MDR Escherichia coli -Sensitivities for both the cultures have shown that patient was resistant to cefepime -Patient will be started on 1 g every 24 hours ertapenem for a total of 5-7 days, and discharged on PO fosfomycin SNOMED Code(s): 39964952 (2) Mass of colon Current Visit: Yes Status: Chronic - to CT scan showed a soft tissue mass involving the cecum Patient is scheduled to undergo colonoscopy next Tuesday for further evaluation of colonic mass SNOMED Code(s): 076032878 (3) Atrial fibrillation Current Visit: Yes Status: Chronic Patient has a chronic history of atrial fibrillation She is on home medication sotalol and diltiazem for rate control and Eliquis for AC Qualifiers: Atrial fibrillation type: chronic Qualified Code(s): I48.2 - Chronic atrial fibrillation SNOMED Code(s): 33784660 (4) Diabetes mellitus, type 2 Current Visit: Yes Status: Chronic Patient has a history of insulin-dependent diabetes mellitus Currently on low-dose sliding scale insulin Qualifiers: 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: with jail use Diabetes mellitus complication status: without complication Qualified Code(s): E11.9 - Type 2 diabetes mellitus without complications; 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 I agree with the documented findings, disposition and treatment plan as described except to the extent set forth below. Assessment and plan: Cystitis causative organism unclear but previously patient's culture positive for Proteus mirabilis and ESBL Escherichia coli recommendations: continue ertapenem while inhouse on d/c consider giving fosfomycin 1 packet q48 x 3 d/w hospitalist team
--- NOTE | 2018-09-27 14:33 | Internal Med Progress Note ---
Hospitalist Progress Note - Encounter Date of Encounter: 09/27/18 Time of Encounter: 14:31 - Subjective Interval History: The patient was seen and examined on the bedside The patient states burning sensation and urine, no fever nor leukocytosis also patient has poor appetite The patient states she is scheduled to get colonoscopy on next Tuesday but she is not interesting in chemotherapy in case of malignancy - Exam Vitals: Temp Pulse Resp BP Pulse Ox 97.7 F 62 16 159/77 98 09/27/18 11:18 09/27/18 11:18 09/27/18 11:18 09/27/18 11:18 09/27/18 11:18 Exam: General: Patient is alert, awake, speak slowly No acute distress Head: Atraumatic, normocephalic. supple neck Eye: EOMI, PERRLA, no scleral icterus noted.. Neck: Normal inspection, Respiratory: No respiratory distress, rhonchi, or wheezes noted. air entry equal bilaterally Cardiovascular: Regular rate and regular rhythm, S1 and S2 audible. No murmurs, rubs, or gallops. GI: Soft, nondistended, normal bowel sounds. Extremities:No joint swelling, pedal edema, or tenderness noted. Neurological: able to move 4 limbs Skin: Dry, intact, warm. Normal color. No rashes. DVT Prophylaxis: apixiban - Summary of Assessment and Plan Summary of Assessment and Plan: Ms. De León is a 88 year old female with history of HTN, IDDM, atrial fibrillation on sotalol and Eliquis , frequent UTIs, recent AAA repair, DVT/PE who came into the hospital with her granddaughter from senior living due to 3 days of dysuria, malodorous urine and polyuria. UTI: - Has history of ESBL, first urine culture showed mixed organisms with recommendation to repeat culture. Urine culture from 06/19/18 was a positive for a Proteus mirabilis and ESBL -Urine culture from 03/17/19 grew MDR Escherichia coli -Sensitivities for both the cultures have shown that patient was resistant to cefepime - Received 1 dose of Rocephin. ID consulted for her history of ESBL, started on ertapenem today. - Patient is afebrile, hemodynamically stable. Has no leukocytosis. - d/c IV fluids at rate of 75 mL/hour. - Because the patient is still symptomatic, will need fosfomycin 3 package every 48 hours on discharge Colon mass with possible liver metastasis: - Scheduled for colonoscopy on next Tuesday - patient not interesting i chemotherapy History of A. fib: - Continue home medication with sotalol and diltiazem. Continue Eliquis for AC IDDM: - Continue Levemir 20 units subcutaneously once a day as the patient has poor oral intake, low sliding scale insulin. - Accu-Chek 3 times a day before meals at bedtime. ADA. Constipation: - Continue home bowel regimen - has No BM today HTN: - We will continue hydralazine, diltiazem and, losartan. DVT prophylaxis: Eliquis diet: ADA CODE STATUS: DNR/DNI - Time Spent with Patient Total time spent is greater than 50% in coordination of care (as documented) at patient's floor/unit and/or counseling patient: Internal Medicine: Result - Labs CBC & Chem 7: 09/26/18 05:46 09/26/18 05:46 Consult Discharge Plan - Plan Referrals: Roula Wilson [Primary Care Provider] -
[2018-09-27] MEDS: Insulin DETEMIR 100 UNIT/ML X5UNITS SQ SCH ×2 (14:57→21:48)
[2018-09-27 15:28] LABS: Hematocrit 35.8 % (35.3-44.9); Hemoglobin 10.9 g/dL (11.5-15.4); Mean Corpuscular HGB Conc 30.4 g/dL (31.6-35.5); Mean Corpuscular Hemoglobin 28.1 pg (28.0-33.3); Mean Corpuscular Volume 92.3 fL (83.0-100.0); Mean Platelet Volume 10.4 fL (9.4-12.4); Platelet Count 249 K/mcL (140-400); Red Blood Count 3.88 M/mcL (3.82-4.97); White Blood Count 5.9 K/mcL (4.3-11.1)
[2018-09-27 15:36] LABS: Alanine Aminotransferase 5 Units/L (7-52); Albumin 3.1 g/dL (3.5-5.7); Albumin/Globulin Ratio 0.9 (1.1-2.2); Alkaline Phosphatase 73 Units/L (34-104); Aspartate Amino Transferase 13 Units/L (13-39); BUN/Creatinine Ratio 15 (6-26); Bilirubin,Total 0.4 mg/dL (0.3-1.0); Blood Urea Nitrogen 12 mg/dL (8-23); Calcium 8.7 mg/dL (8.6-10.3); Carbon Dioxide 24 mEq/L (23-29); Chloride 104 mEq/L (98-107); Globulin 3.3 g/dL (2.4-3.5); Glucose 178 mg/dL (70-105); Magnesium 1.7 mg/dL (1.6-2.6); Osmolality,Calculated 284 (280-300); Phosphorous 3.2 mg/dL (2.7-4.5); Sodium 135 mEq/L (136-145); Total Protein 6.4 g/dL (6.4-8.9); eGFR For African Americans > 60 (> 60); eGFR For Non-African Americans > 60 (> 60)
[2018-09-27] MEDS: Ertapenem 1,000 MG in 0.9 % Sodium Chloride Mini Bag 100 ML IVPB SCH (18:05)
[2018-09-28 06:32] LABS: Hematocrit 35.6 % (35.3-44.9); Hemoglobin 11.2 g/dL (11.5-15.4); Mean Corpuscular HGB Conc 31.5 g/dL (31.6-35.5); Mean Corpuscular Hemoglobin 28.9 pg (28.0-33.3); Mean Platelet Volume 10.2 fL (9.4-12.4); Platelet Count 237 K/mcL (140-400); Red Blood Count 3.87 M/mcL (3.82-4.97); Red Cell Distribution Width 13.9 % (11.5-14.5); White Blood Count 5.9 K/mcL (4.3-11.1)
[2018-09-28 06:54] LABS: Alanine Aminotransferase 5 Units/L (7-52); Albumin 2.9 g/dL (3.5-5.7); Albumin/Globulin Ratio 0.9 (1.1-2.2); Alkaline Phosphatase 66 Units/L (34-104); Aspartate Amino Transferase 14 Units/L (13-39); BUN/Creatinine Ratio 16 (6-26); Bilirubin,Total 0.4 mg/dL (0.3-1.0); Blood Urea Nitrogen 10 mg/dL (8-23); Calcium 8.7 mg/dL (8.6-10.3); Carbon Dioxide 22 mEq/L (23-29); Chloride 102 mEq/L (98-107); Globulin 3.4 g/dL (2.4-3.5); Glucose 111 mg/dL (70-105); Magnesium 1.6 mg/dL (1.6-2.6); Osmolality,Calculated 284 (280-300); Phosphorous 2.6 mg/dL (2.7-4.5); Potassium 3.9 mEq/L (3.5-5.1); Sodium 137 mEq/L (136-145); Total Protein 6.3 g/dL (6.4-8.9); eGFR For African Americans > 60 (> 60); eGFR For Non-African Americans > 60 (> 60)
--- NOTE | 2018-09-28 10:11 | Infectious Disease Progress No ---
ID Progress Note Date of Encounter: 09/28/18 Time of Encounter: 11:00 - Subjective Subjective: Patient is seen and examined at the bedside. She endorses that she has dysuria today but it is a little better than yesterday. Patient had a bowel movement this morning. Patient has been afebrile overnight, her labs look unremarkable with no evidence of leukocytosis. complains of diminished appetite. Patient currently is on ertapenem 1g q24 h for her recurrent UTI . She denies systemic signs like fever, shortness of breath, diarrhea, vomiting and nausea - Objective CBC & Chem 7: 09/28/18 06:20 09/28/18 06:20 - Exam Vitals: Temp Pulse Resp BP Pulse Ox 98.1 F 74 16 158/70 93 09/28/18 08:04 09/28/18 08:04 09/28/18 08:04 09/28/18 08:04 09/28/18 08:04 Exam: Gen.: Vitals noted. No acute distress. Alert, awake and oriented * 3 [address], and time, well developed, well-nourished resting comfortably in bed. Pleasant. HEENT: oropharynx clear, Normocephalic, atraumatic, MMM Neck: supple, no JVD, no lymphadenopathy, no carotid bruit. Cardiac: RRR, no murmur, +S1/S2, No BLE edema, PMI non-displaced Pulmonary: CTA bilaterally, no wheezes, rales or rhonchi, equal chest expansion, unlabored breathing Abdomen: suprapubic pain relatively less than yesterday, soft, nontender, BS noted, no guarding, mildly distended. No organomegaly, no pulsatile masses, Skin: warm and dry, no visible lesions. Feels warm, clammy, no rashes, no lesions, no erythema MSK: ROM not assessed. no joint swelling noted, gait not assessed while in bed. Non tender calf or clubbing, no cyanosis/clubbing/ or edema Neuro: A&O, moves all extremities, no focal deficits, sensation intact Psych: Appropriate mood and behavior, normal speech. - Assessment and Plan (1) Cystitis Current Visit: Yes Status: Acute -Patient presents to the hospital because of dysuria for the past 5-6 days -Workup in the ED showed that patient was positive for large amount of leukocyte esterase and nitrites. Patient also had protein of greater than equal to 300 and the urine. -urine culture showed mixed organisms . -Urine culture from 06/19/18 was a positive for Proteus mirabilis and ESBL E Coli -Proteus : S: Ertapenem, gentamicin, imipenem, nitrofurantoin, tobramycin - EColi ESBL: S- Augmentin, Unasyn, ampicillin, cefazolin, cefepime, ceftazidime, ceftriaxone, ertapenem, gentamicin, any pen M, Zosyn, tobramycin, Bactrim. -Urine culture from 03/17/19 grew MDR Escherichia coli -Sensitivities for both the cultures have shown that patient was resistant to cefepime - Her CrCl today is 61.2-66.6 -Patient will be started on 1 g every 24 hours ertapenem for a total of 5-7 days, and discharged on PO fosfomycin SNOMED Code(s): 27603202 (2) Mass of colon Current Visit: Yes Status: Chronic - to CT scan showed a soft tissue mass involving the cecum Patient is scheduled to undergo colonoscopy next Tuesday for further evaluation of colonic mass SNOMED Code(s): 144428770 (3) Atrial fibrillation Current Visit: Yes Status: Chronic Patient has a chronic history of atrial fibrillation She is on home medication sotalol and diltiazem for rate control and Eliquis for AC Qualifiers: Atrial fibrillation type: chronic Qualified Code(s): I48.2 - Chronic atrial fibrillation SNOMED Code(s): 46429188 (4) Diabetes mellitus, type 2 Current Visit: Yes Status: Chronic Patient has a history of insulin-dependent diabetes mellitus Currently on low-dose sliding scale insulin Qualifiers: Diabetes mellitus buttermaker continuous churn insulin use: with shelter use Diabetes mellitus complication status: without complication Qualified Code(s): E11.9 - Type 2 diabetes mellitus without complications; Z79.4 - watermaster (current) use of insulin SNOMED Code(s): 94989979 (5) Hypertension Current Visit: No Status: Chronic Patient has a history of hypertension continue home dose of losartan 25 mg by mouth Qualifiers: Hypertension type: essential hypertension Qualified Code(s): I10 - Essential (primary) hypertension SNOMED Code(s): 02264319 Consult Discharge Plan - Plan Instructions: Urinary Tract Infection in Women (DC) Additional Instructions: The patient need Lovenox/heparin bridge in case eliquis on hold , because the patient has hx of PE adn she is at high risk Referrals: Roula Wilson [Primary Care Provider] - - Attending Attestation I examined this patient and my medical decision-making was reviewed with the Resident Physician. I agree with the documented findings, disposition and mauricio atment plan as described except to the extent set forth below. Assessment and plan: Cystitis causative organism unclear but previously patient's culture positive for Proteus mirabilis and ESBL Escherichia coli recommendations: continue ertapenem while inhouse on d/c consider giving fosfomycin 1 packet q48 x 3 d/w hospitalist team
[2018-09-28] MEDS: Diltiazem CD (24hr) 180 MG CAPSULE PO SCH (10:12)
[2018-09-28] MEDS: hydrALAZINE 25 MG TABLET PO SCH ×3 (10:12→21:36)
[2018-09-28] MEDS: Apixaban 2.5 MG TABLET PO SCH ×2 (10:12→21:36)
[2018-09-28] MEDS: Gabapentin 300 MG CAPSULE PO SCH ×2 (10:13→21:36)
[2018-09-28] MEDS: ALPRAZolam 0.25 MG TABLET PO SCH (10:13)
[2018-09-28] MEDS: Ascorbic Acid 500 MG TABLET PO SCH (10:13)
[2018-09-28] MEDS: Sennosides/Docusate Sodium TABLET PO SCH (10:13)
[2018-09-28] MEDS: Aspirin 81 MG TAB.CHEW PO SCH (10:13)
[2018-09-28] MEDS: Insulin LISPRO 300 UNITS/3 ML VIAL SQ SCH ×4 (10:14→21:36)
[2018-09-28] MEDS: Insulin DETEMIR 100 UNIT/ML X5UNITS SQ SCH (10:14)
[2018-09-28] MEDS: *HR* Acetaminophen w/Cod 300-30 mg 1 TAB TABLET PO SCH (10:16)
--- NOTE | 2018-09-28 13:30 | Internal Med Progress Note ---
Hospitalist Progress Note - Encounter Date of Encounter: 09/28/18 Time of Encounter: 13:27 - Subjective Interval History: the patient was seen and examined at bedside. still reports burning in urine no CP or SOB no vomiting - Exam Vitals: Temp Pulse Resp BP Pulse Ox 98.1 F 74 16 158/70 93 09/28/18 08:04 09/28/18 08:04 09/28/18 08:04 09/28/18 08:04 09/28/18 08:04 Exam: General: Patient is alert, awake, speak slowly Not in acute distress Head: Atraumatic, normocephalic. supple neck Eye: EOMI, PERRLA, no scleral icterus noted.. Neck: Normal inspection, Respiratory: No respiratory distress, rhonchi, or wheezes noted. air entry equ al bilaterally Cardiovascular: Regular rate and regular rhythm, S1 and S2 audible. No murmurs, rubs, or gallops. GI: Soft, non distended, normal bowel sounds. Extremities:No joint swelling, pedal edema, or tenderness noted. Neurological: able to move 4 limbs Skin: Dry, intact, warm. Normal color. No rashes. DVT Prophylaxis: apixiban - Summary of Assessment and Plan Summary of Assessment and Plan: Ms. De León is a 88 year old female with history of HTN, IDDM, atrial fibrillation on sotalol and Eliquis , frequent UTIs, recent AAA repair, DVT/PE who came into the hospital with her granddaughter from shelter due to 3 da ys of dysuria, malodorous urine and polyuria. UTI: - Has history of ESBL, first urine culture showed mixed organisms with recommendation to repeat culture. Urine culture from 06/19/18 was a positive for a Proteus mirabilis and ESBL -Urine culture from 03/17/19 grew MDR Escherichia coli -Sensitivities for both the cultures have shown that patient was resistant to cefepime - Received 1 dose of Rocephin. ID consulted for her history of ESBL, started on ertapenem today. - Patient is afebrile, hemodynamically stable. Has no leukocytosis. - d/c IV fluids at rate of 75 mL/hour. - Because the patient is still symptomatic, continue on ertapenem iv for 5-7 days then d/c on Po fosomycin Colon mass with possible liver metastasis: - Scheduled for colonoscopy on next Tuesday - patient not interesting in chemotherapy History of A. fib: - Continue home medication with sotalol and diltiazem. Continue Eliquis for AC, need to stop eliquis on Tuesday for colonoscopy IDDM: - Continue Levemir 20 units subcutaneously once a day as the patient has poor oral intake, low sliding scale insulin. - Accu-Chek 3 times a day before meals at bedtime. ADA. Constipation: - Continue home bowel regimen - has No BM today HTN: - We will continue hydralazine, diltiazem and, losartan. DVT prophylaxis: Eliquis diet: ADA CODE STATUS: DNR/DNI - Time Spent with Patient Total time spent is greater than 50% in coordination of care (as documented) at patient's floor/unit and/or counseling patient: Internal Medicine: Result - Labs CBC & Chem 7: 09/28/18 06:20 09/28/18 06:20 Labs: Short CBC 09/27/18 09/28/18 Range/Units 15:01 06:20 WBC 5.9 5.9 (4.3-11.1) K/mcL Hgb 10.9 L 11.2 L (11.5-15.4) g/dL Hct 35.8 35.6 (35.3-44.9) % Plt Count 249 237 (140-400) K/mcL BMP 09/27/18 09/28/18 15:01 06:20 Sodium 135 L 137 Potassium 4.0 3.9 Chloride 104 102 Carbon Dioxide 24 22 L BUN 12 10 Creatinine 0.78 0.64 Glucose 178 H 111 H Calcium 8.7 8.7 Liver Function 09/27/18 09/28/18 Range/Units 15:01 06:20 Total Bilirubin 0.4 0.4 (0.3-1.0) mg/dL AST 13 14 (13-39) Units/L ALT 5 L 5 L (7-52) Units/L Alkaline Phosphatase 73 66 (34-104) Units/L Albumin 3.1 L 2.9 L (3.5-5.7) g/dL Consult Discharge Plan - Plan Referrals: Roula Wilson [Primary Care Provider] -
[2018-09-28] MEDS: Ertapenem 1,000 MG in 0.9 % Sodium Chloride Mini Bag 100 ML IVPB SCH (17:42)
[2018-09-28] MEDS ORDERED: Insulin DETEMIR 100 UNIT/ML X5UNITS SQ SCH (21:00)
[2018-09-29] MEDS: Insulin LISPRO 300 UNITS/3 ML VIAL SQ SCH ×3 (08:08→17:02)
[2018-09-29] MEDS: hydrALAZINE 25 MG TABLET PO SCH ×2 (09:57→16:06)
[2018-09-29] MEDS: Sennosides/Docusate Sodium TABLET PO SCH (09:57)
[2018-09-29] MEDS: ALPRAZolam 0.25 MG TABLET PO SCH (09:57)
[2018-09-29] MEDS: Gabapentin 300 MG CAPSULE PO SCH (09:58)
[2018-09-29] MEDS: *HR* Acetaminophen w/Cod 300-30 mg 1 TAB TABLET PO SCH (09:58)
[2018-09-29] MEDS: Ascorbic Acid 500 MG TABLET PO SCH (09:58)
[2018-09-29] MEDS: Diltiazem CD (24hr) 180 MG CAPSULE PO SCH (09:58)
[2018-09-29] MEDS: Apixaban 2.5 MG TABLET PO SCH (09:58)
[2018-09-29] MEDS: Aspirin 81 MG TAB.CHEW PO SCH (10:00)
--- NOTE | 2018-09-29 10:12 | Discharge Summary ---
Orders not resulted at time of discharge: Pending orders 09/25/18 19:46 Culture,Blood [BC] Stat 09/26/18 13:53 Culture,Urine [RM] Routine Date of Encounter: 09/29/18 Time of Encounter: 10:07 - Discharge Diagnosis (1) UTI (urinary tract infection) Priority: Primary Status: Acute Qualifiers: Urinary tract infection type: acute cystitis Hematuria presence: with oz turia Qualified Code(s): N30.01 - Acute cystitis with hematuria Hospital course: Ms. De León is a 88 year old female with history of hypertension and insulin- dependent diabetes and atrial fibrillation frequent tract infection, was admitted because of the dysuria was found to have cystitis with urinalysis positive for large amount of leukocyte esterase and nitrate, urine culture growing mixed organisms, ID consulted starting the patient on IV ertapenem because the patient has history of ESBL Escherichia coli UTI, patient has no leukocytosis noted fever, discussed with the infectious disease doctor recommended discharge on by mouth fosfomycin As was found to have a colon mass on CT of abdomen/ pelvis and the patient is scheduled to undergo colonoscopy next Tuesday for further evaluation of colonic mass, will need to hold eliquis on Tuesday to prepare for colonscopy, may need heparin bridging as the patient has hx of DVT/PE in record - Time Spent with Patient Total time spent providing and/or coordinating discharge services: 35 min - Discharge Medications Prescriptions: New Insulin LISPRO [HumaLOG] 0 units SQ TIDAC vial Insulin LISPRO [HumaLOG] 0 units SQ HS vial hydrALAZINE [HydrALAZINE] 75 mg PO TID tablet Insulin DETEMIR [Levemir] 8 unit SQ HS [id number] Continued Sotalol [Betapace] 80 mg PO BID Losartan [Cozaar] 25 mg PO DAILY Aspirin 81 mg PO DAILY Gabapentin [Neurontin] 300 mg PO BID #6 capsule Gluc HCl/Csa/Collagen/Hyalur A [Glucosamine Chondroitin Cap] 1 cap PO DAILY Hydrocortisone Acetate [Proctocort] 30 mg RC DAILY PRN PRN Reason: Hemorrhoids Thiamine HCl [Vitamin B-1] 100 mg PO DAILY #180 tablet Diltiazem CD (24hr) [Cardizem CD] 180 mg PO BID Sertraline [Zoloft] 12.5 mg PO DAILY Dextran 70/Hypromellose [Artificial Tears] 1 drop BOTH EYES DAILY PRN PRN Reason: Dry Eye(S) Multivitamin [Multivitamins] 1 cap PO DAILY Ascorbate Calcium [Vitamin C] 500 mg PO DAILY Benzocaine [Anesthetic Oral Gel] 1 appl MM DAILY PRN PRN Reason: Pain Bisacodyl [Gentle Laxative] 10 mg RC DAILY PRN PRN Reason: Constipation Carboxymethylcellulos/Glycerin [Refresh Optive Eye Drops] 1 drop BOTH EYES QID PRN PRN Reason: Dry Eye(S) Docusate Sodium [Dok] 100 mg PO DAILY PRN PRN Reason: Constipation Furosemide [Lasix] 40 mg PO DAILY GuaiFENesin/Dextromethorphan [Robitussin Cough-Chest Dm Liq] 10 ml PO Q12H Ipratropium/Albuterol Sulfate [Iprat-Albut 0.5-3(2.5) mg/3 ml] 3 ml IH Q6H PRN PRN Reason: Shortness Of Breath Menthol/Zinc Ox/Aloe/Wong Oil [Chamosyn Ointment] 1 appl TP BID Menthol/Zinc Ox/Aloe/Wong Oil [Chamosyn Ointment] 1 appl TP DAILY PRN PRN Reason: Skin Irritation Potassium Chloride [K-Tab ER] 20 meq PO DAILY Sennosides/Docusate Sodium [Senna Plus] 1 tab PO DAILY Apixaban [Eliquis] 2.5 mg PO BID #60 tablet Discontinued ALPRAZolam [Xanax 0.25 MG Tablet] 0.25 mg PO DAILY guaiFENesin [Guaifenesin] 1,200 mg PO BID PRN PRN Reason: Cough/CONGESTION Hydralazine HCl 50 mg PO TID Insulin ASPART [Novolog Flexpen] 10 unit SQ TID Insulin DETEMIR [Levemir Flextouch] 20 unit SQ BID No Action Acetaminophen w/Cod 300-30 mg [Tylenol w/Codeine #3] 1 tab PO BID Home Medications: Losartan [Cozaar] 25 mg PO DAILY 05/13/15 [History] Sotalol [Betapace] 80 mg PO BID 05/13/15 [History] Aspirin 81 mg PO DAILY 09/02/16 [History] Gabapentin [Neurontin] 300 mg PO BID #6 capsule 11/29/17 [Rx] Gluc HCl/Csa/Collagen/Hyalur A [Glucosamine Chondroitin Cap] 1 cap PO DAILY 01/02/18 [History] Hydrocortisone Acetate [Proctocort] 30 mg RC DAILY PRN 01/02/18 [History] Thiamine HCl [Vitamin B-1] 100 mg PO DAILY #180 tablet 01/26/18 [Rx] Diltiazem CD (24hr) [Cardizem CD] 180 mg PO BID 06/01/18 [History] Acetaminophen w/Cod 300-30 mg [Tylenol w/Codeine #3] 1 tab PO BID 09/25/18 [History] Dextran 70/Hypromellose [Artificial Tears] 1 drop BOTH EYES DAILY PRN 09/25/18 [History] Multivitamin [Multivitamins] 1 cap PO DAILY 09/25/18 [History] Sertraline [Zoloft] 12.5 mg PO DAILY 09/25/18 [History] Ascorbate Calcium [Vitamin C] 500 mg PO DAILY 09/26/18 [History] Benzocaine [Anesthetic Oral Gel] 1 appl MM DAILY PRN 09/26/18 [History] Bisacodyl [Gentle Laxative] 10 mg RC DAILY PRN 09/26/18 [History] Carboxymethylcellulos/Glycerin [Refresh Optive Eye Drops] 1 drop BOTH EYES QID PRN 09/26/18 [History] Docusate Sodium [Dok] 100 mg PO DAILY PRN 09/26/18 [History] Furosemide [Lasix] 40 mg PO DAILY 09/26/18 [History] GuaiFENesin/Dextromethorphan [Robitussin Cough-Chest Dm Liq] 10 ml PO Q12H 09/26/18 [History] Ipratropium/Albuterol Sulfate [Iprat-Albut 0.5-3(2.5) mg/3 ml] 3 ml IH Q6H PRN 09/26/18 [History] Menthol/Zinc Ox/Aloe/Wong Oil [Chamosyn Ointment] 1 appl TP BID 09/26/18 [History] Menthol/Zinc Ox/Aloe/Wong Oil [Chamosyn Ointment] 1 appl TP DAILY PRN 09/26/18 [History] Potassium Chloride [K-Tab ER] 20 meq PO DAILY 09/26/18 [History] Sennosides/Docusate Sodium [Senna Plus] 1 tab PO DAILY 09/26/18 [History] Apixaban [Eliquis] 2.5 mg PO BID #60 tablet 09/29/18 [Rx] Insulin DETEMIR [Levemir] 8 unit SQ HS [id number] 09/29/18 [Rx] Insulin LISPRO [HumaLOG] 0 units SQ HS vial 09/29/18 [Rx] Insulin LISPRO [HumaLOG] 0 units SQ TIDAC vial 09/29/18 [Rx] hydrALAZINE [HydrALAZINE] 75 mg PO TID tablet 09/29/18 [Rx] Allergies/Adverse Reactions: Allergy/AdvReac Type Severity Reaction Status Date / Time naproxen [From Aleve] Allergy Mild Blister Verified 07/26/18 17:07 aspirin [ASA] Allergy See Verified 07/26/18 17:07 Comments ibuprofen AdvReac Mild Abdominal Verified 07/26/18 17:07 Pain metformin AdvReac See Verified 07/26/18 17:07 Comments Date of admission: 09/28/18 21:40 Primary care physician: Roula Wilson Consults: 09/25/18 15:28 Consult to Aircraft Systems Repairer [CONS] Routine Reason for SW Consult: granddaughter requested it. 09/26/18 13:52 Consult to Infectious Diseases [CONS] Routine Consulting Provider: Infectious Disease Neha Reason for Consult: Hx of ESBL UTI. Rx recommendation? Call Completed: Yes 09/27/18 14:38 dietary consult [Consult to Nutrition] [CONS] Routine Comment: Consulting Provider: NUTRITION Reason for Dietary Consult: Diet Education - Constitutional Vitals: Temp Pulse Resp BP Pulse Ox 97.8 F 84 15 183/79 98 09/29/18 07:48 09/29/18 07:48 09/29/18 07:48 09/29/18 07:48 09/29/18 07:48 Exam: General: Patient is alert, awake, speak slowly Not in acute distress Head: Atraumatic, normocephalic. supple neck Eye: EOMI, PERRLA, no scleral icterus noted.. Neck: Normal inspection, Respiratory: No respiratory distress, rhonchi, or wheezes noted. air entry equal bilaterally Cardiovascular: Regular rate and regular rhythm, S1 and S2 audible. No murmurs, rubs, or gallops. GI: Soft, non distended, normal bowel sounds. Extremities:No joint swelling, pedal edema, or tenderness noted. Neurological: able to move 4 limbs Skin: Dry, intact, warm. Normal color. No rashes. - Patient Status Disposition: Transfer SNF Condition: Fair - Discharge Instructions Instructions: Urinary Tract Infection in Women (DC) Follow Up With: Roula Wilson [Primary Care Provider] -
[2018-09-29] MEDS ORDERED: Fosfomycin Tromethamine 3 GM Packet PO SCH (11:00)
--- NOTE | 2018-09-29 11:37 | Infectious Disease Progress No ---
ID Progress Note Date of Encounter: 09/29/18 Time of Encounter: 10:00 - Subjective Subjective: Patient is seen and examined at the bedside. She endorses no acute distress. She has been afebrile overnight, her labs look unremarkable with no evidence of leukocytosis. She endorses good appetite. Patient currently is on ertapenem 1g q24 h for her recurrent UTI , appears to be hemodynamically stable and will be discharged on PO fosfomycin q48 *3. - Objective CBC & Chem 7: 09/28/18 06:20 09/28/18 06:20 - Exam Vitals: Temp Pulse Resp BP Pulse Ox 97.8 F 84 15 183/79 98 09/29/18 07:48 09/29/18 07:48 09/29/18 07:48 09/29/18 07:48 09/29/18 07:48 Exam: Gen.: Vitals noted. No acute distress. Alert, awake and oriented * 3 to person, place, and time, well developed, well-nourished resting comfortably in bed. Pleasant. HEENT: oropharynx clear, Normocephalic, atraumatic, MMM Neck: supple, no JVD, no lymphadenopathy, no carotid bruit. Cardiac: RRR, no murmur, +S1/S2, No BLE edema, PMI non-displaced Pulmonary: CTA bilaterally, no wheezes, rales or rhonchi, equal chest expansion, unlabored breathing Abdomen: suprapubic pain relatively less than yesterday, soft, nontender, BS noted, no guarding, mildly distended. No organomegaly, no pulsatile masses, Skin: warm and dry, no visible lesions. Feels warm, clammy, no rashes, no lesi ons, no erythema MSK: ROM not assessed. no joint swelling noted, gait not assessed while in bed. Non tender calf or clubbing, no cyanosis/clubbing/ or edema Neuro: A&O, moves all extremities, no focal deficits, sensation intact Psych: Appropriate mood and behavior, normal speech. - Assessment and Plan (1) Cystitis Status: Acute -Patient presents to the hospital because of dysuria for the past 5-6 days -Workup in the ED showed that patient was positive for large amount of leukocyte esterase and nitrites. Patient also had protein of greater than equal to 300 and the urine. -urine culture showed mixed organisms . -Urine culture from 06/19/18 was a positive for Proteus mirabilis and ESBL E Coli -Proteus : S: Ertapenem, gentamicin, imipenem, nitrofurantoin, tobramycin - EColi ESBL: S- Augmentin, Unasyn, ampicillin, cefazolin, cefepime, ceftazidime, ceftriaxone, ertapenem, gentamicin, any pen M, Zosyn, tobramycin, Bactrim. -Urine culture from 03/17/19 grew MDR Escherichia coli -Sensitivities for both the cultures have shown that patient was resistant to cefepime -Patient on 1 g every 24 hours ertapenem for a total of 5-7 days, and discharged on PO fosfomycin q48h *3 SNOMED Code(s): 02006555 (2) Mass of colon Status: Chronic - to CT scan showed a soft tissue mass involving the cecum Patient is scheduled to undergo colonoscopy next Tuesday for further evaluation of colonic mass SNOMED Code(s): 850747107 (3) Atrial fibrillation Status: Chronic Patient has a chronic history of atrial fibrillation She is on home medication sotalol and diltiazem for rate control and Eliquis for AC Qualifiers: Atrial fibrillation type: chronic Qualified Code(s): I48.2 - Chronic atrial fibrillation SNOMED Code(s): 44964390 (4) Diabetes mellitus, type 2 Status: Chronic Patient has a history of insulin-dependent diabetes mellitus Currently on low-dose sliding scale insulin Qualifiers: Diabetes mellitus senior care insulin use: with extermination inspector use Diabetes mellitus complication status: without complication Qualified Code(s): E11.9 - Type 2 diabetes mellitus without complications; Z79.4 - penitentiary (current) use of insulin SNOMED Code(s): 79971180 (5) Hypertension Status: Chronic Patient has a history of hypertension continue home dose of losartan 25 mg by mouth Qualifiers: Hypertension type: essential hypertension Qualified Code(s): I10 - Essential (primary) hypertension SNOMED Code(s): 54722533 Consult Discharge Plan - Plan Instructions: Urinary Tract Infection in Women (DC) Additional Instructions: The patient need Lovenox/heparin bridge in case eliquis on hold , because the patient has hx of PE adn she is at high risk Referrals: Wilson,Yadwinder [Primary Care Provider] - - Attending Attestation I examined this patient and my medical decision-making was reviewed with the Resident Physician. I agree with the documented findings, disposition and treatment plan as described except to the extent set forth below. Assessment and plan: Cystitis causative organism unclear but previously patient's culture positive for Proteus mirabilis and ESBL Escherichia coli recommendations: continue ertapenem while inhouse on d/c consider giving fosfomycin 1 packet q48 x 3 d/w hospitalist team
[2018-09-29] MEDS: Acetaminophen 325 MG TABLET PO PRN (13:07)
--- NOTE | 2018-09-29 13:09 | Physician Discharge Referral ---
ExtendedCare Referral Info Transfer To: SNF Provider in Charge after Transfer: PCP (patient need heparin/lovenax bridging in case eliquis on hold as the patient has hx of PE and at risk of thrombo- embolism) - Diagnosis (1) UTI (urinary tract infection) Status: Acute (2) Cystitis Priority: Primary Status: Acute Prognosis: Fair - Transfer Medications Home Medications: Losartan [Cozaar] 25 mg PO DAILY 05/13/15 [History] Sotalol [Betapace] 80 mg PO BID 05/13/15 [History] Aspirin 81 mg PO DAILY 09/02/16 [History] Gabapentin [Neurontin] 300 mg PO BID #6 capsule 11/29/17 [Rx] Gluc HCl/Csa/Collagen/Hyalur A [Glucosamine Chondroitin Cap] 1 cap PO DAILY 01/02/18 [History] Hydrocortisone Acetate [Proctocort] 30 mg RC DAILY PRN 01/02/18 [History] Thiamine HCl [Vitamin B-1] 100 mg PO DAILY #180 tablet 01/26/18 [Rx] Diltiazem CD (24hr) [Cardizem CD] 180 mg PO BID 06/01/18 [History] Acetaminophen w/Cod 300-30 mg [Tylenol w/Codeine #3] 1 tab PO BID 09/25/18 [History] Dextran 70/Hypromellose [Artificial Tears] 1 drop BOTH EYES DAILY PRN 09/25/18 [History] Multivitamin [Multivitamins] 1 cap PO DAILY 09/25/18 [History] Sertraline [Zoloft] 12.5 mg PO DAILY 09/25/18 [History] Ascorbate Calcium [Vitamin C] 500 mg PO DAILY 09/26/18 [History] Benzocaine [Anesthetic Oral Gel] 1 appl MM DAILY PRN 09/26/18 [History] Bisacodyl [Gentle Laxative] 10 mg RC DAILY PRN 09/26/18 [History] Carboxymethylcellulos/Glycerin [Refresh Optive Eye Drops] 1 drop BOTH EYES QID PRN 09/26/18 [History] Docusate Sodium [Dok] 100 mg PO DAILY PRN 09/26/18 [History] Furosemide [Lasix] 40 mg PO DAILY 09/26/18 [History] GuaiFENesin/Dextromethorphan [Robitussin Cough-Chest Dm Liq] 10 ml PO Q12H 09/26/18 [History] Ipratropium/Albuterol Sulfate [Iprat-Albut 0.5-3(2.5) mg/3 ml] 3 ml IH Q6H PRN 09/26/18 [History] Menthol/Zinc Ox/Aloe/Wong Oil [Chamosyn Ointment] 1 appl TP BID 09/26/18 [History] Menthol/Zinc Ox/Aloe/Wong Oil [Chamosyn Ointment] 1 appl TP DAILY PRN 09/26/18 [History] Potassium Chloride [K-Tab ER] 20 meq PO DAILY 09/26/18 [History] Sennosides/Docusate Sodium [Senna Plus] 1 tab PO DAILY 09/26/18 [History] Apixaban [Eliquis] 2.5 mg PO BID #60 tablet 09/29/18 [Rx] Fosfomycin Tromethamine [Monurol] 3 gm PO Q48H packet 09/29/18 [Rx] Insulin DETEMIR [Levemir] 8 unit SQ HS [id number] 09/29/18 [Rx] Insulin LISPRO [HumaLOG] 0 units SQ HS vial 09/29/18 [Rx] Insulin LISPRO [HumaLOG] 0 units SQ TIDAC vial 09/29/18 [Rx] hydrALAZINE [HydrALAZINE] 75 mg PO TID tablet 09/29/18 [Rx] Allergies/Adverse Reactions: Allergy/AdvReac Type Severity Reaction Status Date / Time naproxen [From Aleve] Allergy Mild Blister Verified 07/26/18 17:07 aspirin [ASA] Allergy See Verified 07/26/18 17:07 Comments ibuprofen AdvReac Mild Abdominal Verified 07/26/18 17:07 Pain metformin AdvReac See Verified 07/26/18 17:07 Comments - Respiratory Orders Smoking Cessation: Smoking cessation has been advised. For more information, call the [place] Tobacco Quit Line at 9-993-JBYU-NOW. - Rehabiliation Orders Rehab Potential: Fair - Diet Orders House Supplement per Dietary: diabetic diet CERTIFICATION: I certify that the transfer of the above named patient to an Extended Care Facility is necessary for the continuing treatment of the diagnosis listed. The above information is true and accurate reflection of patient's current condition. Confidential - Redisclosure prohibited without a patient's written consent.
[2018-09-29 16:06] VITALS: BP 186/94
== END 2018-09-29 17:15 | DRG 690 ==
LOC: 3ANU 10:30 → EMEROOARM 10:30 → SUATTDRO 15:57 → 3ANU 17:07
PROVIDERS: ADMIT Internal Medicine; ATTEND Internal Medicine